=== PATIENT | female | born 1990 | race Caucasian/White ===

== ENCOUNTER 2024-10-22 07:18 | Outpatient (REF) | payer OTHER, SELFPAY ==
--- OUTSIDE RECORDS SUMMARY | 2024-10-22 22:46 | XMS_ITS ---
Author Name [facility] Address [address] [place] [address] Care Team Providers Care Inspector Precision Assembly Name Role Phone FILOMENA SCOTT Primary Care Provider Unavailshelley e Insurance Providers: All historical and current Section Date Range: From patient's date of to the date document was created. This section includes the names of all active insurance providers for the patient. Insurance Provider Type of Coverage Plan Name Start of Policy Coverage End of Policy Coverage Group Number Member ID Insurance Provider's Telephone Number Policy Alcazar's Name Patient's Relationship to Policy Alcazar [employer] DODA* Jun 16, 2024 DODA [id number] Luis Carlos DURBIN PATIENT [facility] [address] T Jun 16, 2024 [id number] Luis Carlos DURBIN PATIENT Selected Encounter This section includes the information on record at [place] for the Encounter. Date/Time Encounter Type Encounter Description Reason Pro vider Source Jul 30, 2024 03:29 PM Outpatient Encounter ADMIN PAT ACTIVTIES (MASNONCT) IHE Encounter Template Text not used by [place] Plan of Treatment: Future Appointments (+ 6 months) and Future Tests (+/- 45 days) The Plan of Treatment section includes future care activities for the patient from all [place] treatmentfacilities. This section includes future appointments and future orders which are active, pending or scheduled. Future Appointments This section includes appointments that were scheduled to occur 6 months from the date of the Encounter, up to a maximum of 20 appointments. The data comes from all [place] treatment facilities. Appointment Date/Time Appointment Type Appointme nt Facility Name Aug 01, 2024 02:30 PM [facility] Oct 06, 2024 10:00 AM AMBULATORY - MEDICINE [facility] Active, Pending, and Scheduled Orders This section includes a listing of several types of active, pending, and scheduled orders, including clinic medications orders, diagnostic test orders, procedure orders and consult orders; where the start date of the order is 45 days before the date of the Encounter or 45 days after the date of theEncounter. The data comes from all [place] treatment facilities. Test Date/Time Test Type Test Details Facility Name Jul 29, 2024 01:03 PM Consult Order [facility] Cons Design Maker's Choice [facility] Lab Results: +/- 30 days of the encounter This section includes the Chemistry and Hematology Lab Results on record with [place] for the patient. Radiology Reports and Pathology Reports are provided separately, in subsequent sections. Lab Results This section contains the Chemistry/Hematology Results that were resulted 30 days before or 30 daysafter the date of the Encounter. Date/Time Source Result Type Result - Unit Interpretation Reference Range Comment Jul 29, 2024 11:38 AM [facility] T-SPOT TB PANEL Specimen Type: BLOOD Comment: A negative test result does not exclude the possibility of exposure to or infection with Mycobacterium tuberculosis (M. tuberculosis). Patients with recent exposure to TB infected individuals exhibiting a negative T-SPOT.TB result should be considered for retesting within 6 weeks or if other relevant clinical symptoms indicate. Results from T-SPOT.TB testing must be used in conjunction with each individual's epidemiological history, current medical status, and results of other diagnostic evaluations. The T-SPOT.TB test is qualitative and results are reported as positive, borderline, or negative, given that the test controls perform as expected. In line with the Centers for Disease Control and Prevention's 2010 recommendation to report quantitative measurements alongside the qualitative result, the laboratory provides spot counts for informational purposes only. The T-SPOT.TB test should not be interpreted as a quantitative test. For additional information, please refer to http://education .Lakoo/faq/JQM178 (This link is being provided for informational/ educational purposes only.) Test Performed by [employer], [employer] [facility], [address] [place], [place] Patel Tamez M.D., Ph.D., Director of Laboratories , [facility] [id number] TEST PERFORMED AT: , Ordering Provider: FILOMENA SCOTT Report Released Date/Time: Jul 29, 2024 10:55 AM Reporting Lab: [facility] [address] [address] Performing Lab: [facility] [address] [address] Z-[id number] (o) Negative Negative T-SPOT-PNLA 0 T-SPOT-PNLB 0 F-ABUH-WYNKJH L Passed H-KDRT-VBPOCQ L Passed Jul 29, 2024 11:38 AM [facility] MMRV (IGG) IMMUNE STATUS PANEL Specimen Type: SERUM Comment: A result of 'REACTIVE' indicates presence of IgG to Measles, Mumps, Rubella or Varicella following exposure to these viruses through either infection or vaccination. If quantitative index values are required for clinical interpretation, call Virology Reference lab during weekday business hours. Ordering Provider: FILOMENA SCOTT Report Released Date/Time: Jul 29, 2024 10:55 AM Reporting Lab: [address] [address] Performing Lab: [address] [address] MEASLES (IGG) REACTIVE SEE COMMENT MUMPS (IGG) REACTIVE SEE COMMENT RUBELLA (IGG) REACTIVE SEE COMMENT VARICELLA (IGG) REACTIVE SEE COMMENT Jul 29, 2024 11:38 AM [facility] BASIC METABOLIC PANEL (non-fasting) Specimen Type: SERUM No comment entered. Ordering Provider: FILOMENA SCOTT Report Released Date/Time: Jul 29, 2024 10:39 AM Reporting Lab: [address] [address] Performing Lab: [address] [address] UREA NITROGEN 12 mg/dL 7-25 GLUCOSE 94 mg/dL 65-100 SODIUM 141 mmol/L 135-145 POTASSIUM 4.0 mmol/L 3.5-5.0 CHLORIDE 106 mmol/L 100-110 CO2 26 meq/L 20-30 CREATININE, Serum 0.82 mg/dL 0.50-1.40 eGFR(CKD-EPI 2020) >90 mL/min >60 Jul 29, 2024 11:38 AM [facility] LIPID PANEL FASTING Specimen Type: SERUM No comment entered. Ordering Provider: FILOMENA SCOTT Report Released Date/Time: Jul 29, 2024 10:39 AM Reporting Lab: [address] [address] Performing Lab: [address] [address] CHOLESTEROL 159 mg/dL TRIGLYCERIDE 66 mg/dL 0-150 LDL calculated 89 mg/dL 0-129 CHOL/HDL 2.8 HDL CHOLESTEROL 57 mg/dL 40-60 Jul 29, 2024 11:38 AM [facility] LIVER FUNCTION Specimen Type: SERUM No comment entered. Ordering Provider: FILOMENA SCOTT Report Released Date/Time: Jul 29, 2024 10:39 AM Reporting Lab: [address] [address] Performing Lab: [address] [address] PROTEIN,TOTAL 6.9 g/dL 6.0-8.3 ALBUMIN 4.5 g/dL 3.5-5.0 ALKALINE PHOSPHATASE 82 U/L 40-150 AST 13 U/L 5-34 ALT 9 U/L BILIRUBIN, TOTAL 1.4 mg/dL H 0.2-1.2 BILIRUBIN, DIRECT 0.5 mg/dL 0-0.5 Jul 29, 2024 11:38 AM [facility] CBC AND DIFF (AUTO) Specimen Type: BLOOD No comment entered. Ordering Provider: FILOMENA SCOTT Report Released Date/Time: Jul 29, 2024 10:39 AM Reporting Lab: [address] [address] Performing Lab: [facility] [address] [address] WBC 4.06 10*3/uL L 4.50-11.00 RBC 3.93 10*6/uL 3.93-5.16 HGB 12.8 g/dL 12-15.2 HCT 36.4 L 36.6-45.6 MCV 92.6 fL 82-99 MCHC 35.2 g/dL H 30.8-35.1 PLT 217 10*3/uL 140-360 RDW-CV 11.4 L 12.0-16.0 MONO, ABS 0.34 10*3/uL 0.30-1.10 MCH 32.6 pg 26.2-32.6 NEUT % 44.4 43.7-75.8 LYMPH % 46.3 H 14.0-42.3 MONO % 8.4 5.1-13.7 EOS % 0.5 0.4-6.8 BASO % 0.2 0.1-2.0 NEUT, ABS 1.80 10*3/uL L 2.20-7.60 LYMPH, ABS 1.88 10*3/uL 1.00-3.20 EOS, ABS 0.02 10*3/uL L 0.03-0.44 BASO, ABS 0.01 10*3/uL 0.01-0.13 IMMATURE GRAN % 0.2 0.0-0.7 IMMATURE GRAN, ABS 0.01 10*3/uL 0.00-0.06 NRBC % 0.0 0.0-0.0 NRBC, ABS 0.00 10*3/uL 0.00-0.00 Jul 29, 2024 11:38 AM [facility] HEMOGLOBIN A1C PANEL Specimen Type: BLOOD Comment: Values obtained from A1C measurements can vary. For atypical A1C assays, a reported value of 7.0 could actually be between 6.72 and 7.28 if measured by a reference method. A reported value of 9.0 could actually be between 8.73 and 9.27. Ref: http://www.ngsp. org/CAPdata.asp Ordering Provider: FILOMENA SCOTT Report Released Date/Time: Jul 29, 2024 10:39 AM Reporting Lab: [facility] [place] [facility] [address] [address] Performing Lab: [facility] [address] [facility] [address] HEMOGLOBIN A1C 4.9 4.0-5.6 Jul 29, 2024 11:38 AM [facility] TSH Specimen Type: SERUM No comment entered. Ordering Provider: FILOMENA SCOTT Report Released Date/Time: Jul 29, 2024 10:39 AM Reporting Lab: [facility] [address] [address] Performing Lab: [facility] [address] [address] TSH 0.80 u[IU]/mL 0.35-5.00 Jul 29, 2024 11:38 AM [facility] HEPATITIS C ANTIBODY (HCV)-ARC Specimen Type: SERUM Comment: Hep C Ab: No HCV antibody detected. If recent infection is suspected or other evidence suggests HCV infection, consider HCV nucleic acid testing Ordering Provider: FILOMENA SCOTT Report Released Date/Time: Jul 29, 2024 11:10 AM Reporting Lab: [facility] [address] [address] Performing Lab: [facility] [address] HEPATITIS C ANTIBODY NON-REACTIVE NON-REACTI VE Social History: Smoking Status (Most current) and Tobacco Use (All prior to encounter date) This section includes the most current, and the historical, smoking and tobacco- related health factors from the [place] facility where the Encounter took place. Current Smoking Status This section includes the most current smoking, or tobacco-related health factor, from the [place] facility where the Encounter took place. Date/Time Current Smoking Status Comment Ha morrell Jul 24, 2024 11:37 AM [facility]ACCO NEVER USED [facility] Radiology Reports: +/- 30 days of the encounter Radiology Reports For cases when an order for radiology services may have been completed prior to the date of the Encounter, the report list includes the Radiology Reports that were completed up to 30 days before dateof the Encounter. For cases when an order for radiology services may have been completed after the date of the Encounter, the report list also includes the Radiology Reports that were completed up to30 days after date of the Encounter. The data comes from all [place] treatment facilities. Date/Time Radiology Report Provider Source Jul 29, 2024 11:[address] MAXILLOFACIAL W/O CONT: MUKESH DURBIN [id number] -1990 F Exm Date: JUL 29, 2024@11:56 Req Phys: FILOMENA SCOTT Pat Loc: CWM/NO/PACT 5 (Req'g Loc) Img Loc: [facility]/CT Service: Unknown Screen: [place] [address] (Case 92 COMPLETE) CT MAXILLOFACIAL W/O CONT (CT Detailed) CPT:56624 Reason for Study: right jaw pain and zygomatic arch pain Clinical History: Post rugby injury last month with head on collision on right side of skull and cheek pain with opening jaw right side Report Status: Verified Date Reported: JUL 31, 2024 Date Verified: JUL 31, 2024 Predictive Maintenance Technician E-Sig: Report: CT MAXILLOFACIAL W/O CONT right jaw pain and zygomatic arch pain 271 images. Total DLP (mGy*cm): 595 IV contrast: None. Technique: Maxillofacial CT without contrast. Reformats. Comparison: None. Findings: Orbits, maxilla, TMJs, mandible intact. No fracture. Hardware intact. Dentition intact. Zygomatic arches intact. Orbital floors intact. Orbits and contents normal. Infratemporal soft tissues normal. Nasopharynx soft tissues normal. Paranasal sinuses are clear. Nasal septum midline. Allowing for minimal undulation of the right nasal bone cortex, no convincing fracture. Limited assessment brain and upper cervical spine unremarkable. Incompletely diffuse posterior arch of C1, congenital variant. Impression: - Unremarkable sinus CT. No fracture or soft tissue swelling. READING PHYSICIAN: Alen Guzman MD -[id number] 07/31/2024 7:21 [facility] National [employer] Program [phone] (For Medical Practitioner Use Only) Attention Patients / Veterans: If you have questions or concerns about these test results, please contact your ordering provider or primary care team. Primary Diagnostic Code: NO ALERT REQUIRED Primary Interpreting Staff: RADIOLOGY,OUTSIDE SERVICE, Staff Physician / RADIOLOGY,OUTSIDE SERVICE [facility] Jul 29, 2024 11:55 AM ANKLE 3 OR MORE VIEWS (RIGHT): GIFTYMUKESH LUDMILA [id number] -1990 F Exm Date: JUL 29, 2024@11:55 Req Phys: TYLER,FILOMENA CASPER Pat Loc: CWM/NO/PACT 5 (Req'g Loc) Img Loc: [facility]BUILD[facility] 1 Service: Unknown Screen: Patient answered no [place] [address] (Case 91 COMPLETE) ANKLE 3 OR MORE VIEWS (RIGHT) (RAD Detailed) CPT:50272 Reason for Study: Right medial ankle pain Clinical History: 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 Comparison: None. Findings: No soft tissue swelling is identified. No radiopaque foreign body is identified. The medial ankle soft tissues appear within normal limits with no focal nodule or mass identified. There is a well-corticated 6 mm bone fragment inferior to the lateral malleolus consistent with remote prior avulsion fracture injury. The talar dome appears normal. The ankle mortise appears normal. Small vascular calcification present in the mid calf above the level of cutaneous marker. No calcaneal spurs are identified. The Achilles tendon stripe appears intact. The foot bones appear intact. No acute bony abnormality is identified. Impression: No acute bony abnormality, as described above. Primary Diagnostic Code: No immediate attention required Primary Interpreting Staff: JEFFERY GARCIA JR, Radiologist (Predictive Maintenance Technician) /JEFFERY CASTILLO JR [facility] Jul 29, 2024 11:55 AM SHOULDER,COMPLETE(RIGHT): GIFTYTREVONMUKESH LUDMILA [id number] -1990 F Exm Date: JUL 29, 2024@11:55 Req Phys: FILOMENA SCOTT Pat Loc: CWM/NO/PACT 5 (Req'g Loc) Img Loc: [facility] Service: Unknown Screen: Patient answered no [facility] [place] [address] (Case 90 COMPLETE) SHOULDER,COMPLETE(RIGHT) (RAD Detailed) CPT:53917 Reason for Study: Right shoulder pain Clinical History: Post rugby injury last month Report Status: Verified Date Reported: JUL 29, 2024 Date Verified: JUL 29, 2024 Predictive Maintenance Technician E-Sig:/ES/JEFFERY GARCIA JR Report: Study: AP internally and externally rotated and Axillary views of the right shoulder. Comparison: None. Findings: The visualized lung and ribs appear normal. The bony mineralization is normal. The shoulder joint spaces are normal and well-maintained. No abnormal soft tissue calcifications are identified that would indicate calcific tendinopathy or calcific bursitis. There is no bony fracture, dislocation or subluxation. Impression: No focal abnormality identified. Primary Diagnostic Code: No immediate attention required Primary Interpreting Staff: JEFFERY GARCIA JR, Radiologist (Predictive Maintenance Technician) /JEFFERY CASTILLO JR [facility] Encounter Notes: All associated encounter notes This section contains the clinical notes associated to the Encounter. Date/Time Encounter Note(s) Provider Source Jul 30, 2024 03:34 PM ADDENDUM: LOCAL TITLE: Addendum STANDARD TITLE: ADDENDUM DATE OF NOTE: JUL 30, 2024@15:34:52 ENTRY DATE: JUL 30, 2024@15:34:54 AUTHOR: JUSTINA JASSO COSIGNER: URGENCY: STATUS: COMPLETED Vet is requesting results of CT scan /werner/ Justina Jasso RN Primary Care Staff Nurse Signed: 07/30/2024 15:35 Receipt Acknowledged By: 08/01/2024 09:41 /werner/ DESTINY NEGRO Nurse Practitioner --- Original Document --- 07/30/24 CCC: SCHEDULING ADMINISTRATION: PLEASE CALL [phone] SCAN RESULTS. /magdiel RODRIGUEZ Medical Internal Medicine Specialist Signed: 07/30/2024 15:30 Receipt Acknowledged By: 07/30/2024 15:42 /LINDSAY Pyle, RN, CNL PRIMARY CARE TEAM NURSE 07/30/2024 15:35 /werner/ Justina Jasso RN Primary Care Staff Nurse JUSTINA JASSO [facility] [place] [facility] Jul 30, 2024 03:29 PM ADMINISTRATIVE NOT E: LOCAL TITLE: CCC: SCHEDULING ADMINISTRATION STANDARD TITLE: ADMINISTRATIVE NOTE DATE OF NOTE: JUL 30, 2024@15:29 ENTRY DATE: JUL 30, 2024@15:29:28 AUTHOR: ISSA RODRIGUEZ EXP COSIGNER: URGENCY: STATUS: COMPLETED CCC: SCHEDULING ADMINISTRATION Has ADDENDA PLEASE CALL [phone] SCAN RESULTS. /magdiel RODRIGUEZ Medical Internal Medicine Specialist Signed: 07/30/2024 15:30 Receipt Acknowledged By: 07/30/2024 15:42 /LINDSAY Pyle, RN, CNL PRIMARY CARE TEAM NURSE 07/30/2024 15:35 /werner/ Justina Jasso RN Primary Care Staff Nurse 07/30/2024 ADDENDUM STATUS: COMPLETED Vet is requesting results of CT scan /magdiel Jasso RN Primary Care Staff Nurse Signed: 07/30/2024 15:35 Receipt Acknowledged By: * AWAITING SIGNATURE * FILOMENA SCOTT DIANE M [facility] [place] [facility]
--- OUTSIDE RECORDS SUMMARY | 2024-10-22 22:46 | XMS_ITS ---
Author Name [facility] [place] [facility] Address [address] [place] [id number] Care Team Providers Care It Systems Analyst Name Role Phone LETA VAZQUEZ Primary Care Provider Unavailabl e Insurance Providers: All historical and current [...] TRICA RE DODA* Jun 16, 2024 DODA [id number] Luis Carlos DURBIN PATIENT [facility] [address] T Jun 16, 2024 [id number] Luis Carlos DURBIN PATIENT Selected Encounter This section includes the information on record at [place] for the Encounter. Date/Time Encounter Type Encounter Description Reason Pro vider Source Oct 06, 2024 12:00 AM Outpatient Encounter EVENT (HISTORICAL) IHE Encounter Template Text not used by [place] Plan of Treatment: Future Appointments (+ 6 months) and Future Tests (+/- 45 days) The Plan of Treatment section includes future care activities for the patient from all [facility]. This section includes future appointments and future orders which are active, pending or scheduled. Active, Pending, and Scheduled Orders This section includes a listing of several types of active, pending, and scheduled orders, including clinic medications orders, diagnostic test orders, procedure orders and consult orders; where the start date of the order is 45 days before the date of the Encounter or 45 days after the date of theEncounter. The data comes from all [place] treatment facilities. Test Date/Time Test Type Test Details Facility Name Oct 06, 2024 12:57 PM Consult Order COMMUNITY CARE-MRI Cons Tuber Helper's Choice [facility] Lab Results: +/- 30 days of the encounter This section includes the Chemistry and Hematology Lab Results on record with [place] for the patient. Radiology Reports and Pathology Reports are provided separately, in subsequent sections. Lab Results This section contains the Chemistry/Hematology Results that were resulted 30 days before or 30 daysafter the date of the Encounter. Date/Time Source Result Type Result - Unit Interpretation Reference Range Comment Oct 06, 2024 02:07 PM [facility] HCG QUAL, URINE Specimen Type: URINE Comment: Test performd by Leta Vazquez NP. [facility] Ordering Provider: LETA VAZQUEZ Report Released Date/Time: Oct 06, 2024 11:28 AM Reporting Lab: [facility] [address] [facility] [id number] Performing Lab: [facility] [address] [facility] [id number] HCG QUAL, URINE Negative NEGATIVE Vital Signs: All taken on the encounter date This section contains inpatient and outpatient Vital Signs collected on the date of the Encounter. Date/Time Temperature Pulse Blood Pressure Respiratory Rate SP02 Pain Height Weight Body Mass Index Source Oct 06, 2024 10:19 AM 97.9 71 105/69 18 99 0 150 24 [facility] Social History: Smoking Status (Most current) and Tobacco Use (All prior to encounter date) This section includes the most current, and the historical, smoking and tobacco- related health factors from the [place] facility where the Encounter took place. Current Smoking Status This section includes the most current smoking, or tobacco-related health factor, from the [place] facility where the Encounter took place. Date/Time Current Smoking Status Comment Facil ity Jul 24, 2024 11:37 AM [facility]CO [facility] USED [facility] Pathology Reports: +/- 30 days of the encounter Pathology Reports For cases when an order for pathology services may have been completed prior to the date of the Encounter, the report list includes the Pathology Reports that were completed up to 30 days before dateof the Encounter. For cases when an order for pathology services may have been completed after the date of the Encounter, the report list also includes the Pathology Reports that were completed up to30 days after date of the Encounter. The data comes from all [place] treatment facilities. Date/Time Pathology Report Provider Source Oct 16, 2024 01:52 PM LR CYTOPATHOLOGY REPORT: LOCAL TITLE: LR CYTOPATHOLOGY REPORT STANDARD TITLE: PATHOLOGY DIAGNOSTIC STUDY REPORT DATE OF NOTE: OCT 16, 2024@13:52:33 ENTRY DATE: OCT 16, 2024@13:52:33 AUTHOR: KRISTINE GREENE EXP COSIGNER: URGENCY: STATUS: COMPLETED $APHDR Reporting Lab: [facility] [IA# [id number]] [address] [place] [id number] - - - - - - - - - - - - - - - - - - - - - - - - - - - - - - - - - - - - - - - - MEDICAL RECORD CYTOPATHOLOGY - - - - - - - - - - - - - - - - - - - - - - - - - - - - - - - - - - - - - - - - PATHOLOGY REPORT Accession No. CY 24 325 - - - - - - - - - - - - - - - - - - - - - - - - - - - - - - - - - - - - - - - - $TEXT Submitted by: LETA VAZQUEZ Date obtained: Oct 06, 2024 10:45 - - - - - - - - - - - - - - - - - - - - - - - - - - - - - - - - - - - - - - - - Specimen (Received Oct 06, 2024 14:54): CERVICAL CYTOLOGY [id number] - - - - - - - - - - - - - - - - - - - - - - - - - - - - - - - - - - - - - - - - BRIEF CLINICAL HISTORY: CY 24 325 SPECIMEN TYPE: PAP WITH HPV GENDER: FEMALE CERVICAL OR VAGINAL: CEVOCA; LMP: MAR 06, 2024 CLINICAL HX: LAST NILM WITH HPV COMMENTS: NO MENSES HAS MIRENA IUD - - - - - - - - - - - - - - - - - - - - - - - - - - - - - - - - - - - - - - - - PREOPERATIVE DIAGNOSIS: - - - - - - - - - - - - - - - - - - - - - - - - - - - - - - - - - - - - - - - - OPERATIVE FINDINGS: - - - - - - - - - - - - - - - - - - - - - - - - - - - - - - - - - - - - - - - - POSTOPERATIVE DIAGNOSIS: Surgeon/physician: LETA VAZQUEZ =-=-=-=-=-=-=-=-=-=-=-=-=- =-=-=-=-=-=-=-=-=-=-=-=-=- =-=-=-=-=-=-=-=-=-=-=-=-=- = - - - - - - - - - - - - - - - - - - - - - - - - - - - - - - - - - - - - - - - - PATHOLOGY REPORT Accession No. CY 24 325 - - - - - - - - - - - - - - - - - - - - - - - - - - - - - - - - - - - - - - - - Screened by: ANTONIO MILLS Description: CY 24 325 CERVICAL CYTOLOGY PAP WITH HPV NEEDED CERVICAL CYTOLOGY RECEIVED IN PRESERVCYT SOLUTION Diagnosis: Satisfactory for evaluation Negative for intraepithelial lesion or malignancy Gynecologic cytology is a screening procedure with an inherent false negative rate. It is most reliable when a satisfactory sample is obtained on a regular repetitive basis. Results should be correlated with clinical information. CPT:15587,63603 HPV REPORT PERFORMED BY: [facility] [CLIA# [id number]] [address] [place] [id number] HPV DNA, HIGH RISK TEST HPV16 NEG Ref: HPV16 NEG HPV18 NEG Ref: HPV18 NEG HPV OTHER HIGH-RISK NEG Ref: OTHER HR HPV NEG Comment: HPV DNA PCR performed by Kaye henry HPV Test. This test detects the presence of DNA from HPV genotypes 16, 18, 31, 33, 35, 39, 45, 51, 52, 56, 58, 59, 66 and 68. Correlation with separate cytopathology report is required. /werner/ KRISTINE GREENE Signed Oct 16, 2024@13:52 Performing Laboratory: Cytology Report Performed By: [facility] [CLIA# [id number]] [address] [place] [address] $FTR - - - - - - - - - - - - - - - - - - - - - - - - - - - - - - - - - - - - - - - - (End of report) KRISTINE GREENE MD Date Oct 16, 2024 - - - - - - - - - - - - - - - - - - - - - - - - - - - - - - - - - - - - - - - - MUKESH DURBIN STANDARD FORM 515 ID:[id number] SEX:F :1990 AGE: 34 LOC:CWM/NO/PACT 5 PCP: Leta Vazquez /werner/ KRISTINE GREENE Signed: 10/16/2024 13:52 KRISTINE GREENE CN[facility]L [facility]
--- OUTSIDE RECORDS SUMMARY | 2024-10-22 22:46 | XMS_ITS ---
Author Name [facility] Organization [facility] ([place]) Address [address] [place] [id number] Care Team Providers Care Assembly Inspector Helper Name Role Phone LETA VAZQUEZ Primary Care [...] Member ID Insurance Provider's Telephone Number Policy Alaczar's Name Patient's Relationship to Policy Alcazar [employer] RE DODA* Jun 16, 2024 DODA [id number] [phone] Luis Carlos DURBIN PATIENT [facility] [address] T Jun 16, 2024 [id number] [phone] Luis Carlos DURBIN PATIENT Selected Encounter This section includes the information on record at [place] for the Encounter. Date/Time Encounter Type Encounter Description Reason Provider Source Oct 06, 2024 10:00 AM INSERT INTRAUTERINE DEVICE PRIMARY CARE/MEDICINE ICD-10-CM Z12.4 Encounter for screening for malignant neoplasm of cervix LETA VAZQUEZ [facility] Encounter Template Text not used by [place] Assessments - Encounter Diagnoses This section includes the primary and secondary diagnoses documented for the Encounter. Date/Time Primary/Secondary Diagnosis Diagnosis Name Provider Source Oct 06, 2024 12:50 PM PRIMARY Encounter for screening for malignant neoplasm of cervix LETA VAZQUEZ [place] [facility] [place] [facility] Plan of Treatment: Future Appointments (+ 6 months) and Future Tests (+/- 45 days) The Plan of Treatment section includes future care activities for the patient from all [place] treatmentfacilities. This section includes future appointments and [...] of theEncounter. The data comes from all [place] treatment facilities. Test Date/Time Test Type Test Details Facility Name Oct 06, 2024 12:57 PM Consult Order COMMUNITY CARE-MRI Cons Kiln Loader's Choice [facility] Lab Results: +/- 30 days of the encounter This section includes the Chemistry and Hematology Lab Results on record with [place] for the patient. Radiology Reports and Pathology Reports are provided separately, in subsequent sections. Lab Results This section contains the Chemistry/Hematology Results that were resulted 30 days before or 30 daysafter the date of the Encounter. Date/Time Source Result Type Result - Unit Interpretation Reference Range Comment Oct 06, 2024 02:07 PM [facility] HCG QUAL, URINE Specimen Type: URINE Comment: Test performd by Leta Vazquez NP. [facility] Ordering Provider: LETA VAZQUEZ Report Released Date/Time: Oct 06, 2024 11:28 AM Reporting [facility] [address] [facility] [id number] Performing Lab: [address] [id number] HCG QUAL, URINE Negative NEGATIVE Vital Signs: All taken on the encounter date This section contains inpatient and outpatient Vital Signs collected on the date of the Encounter. Date/Time Temperature Pulse Blood Pressure Respiratory Rate SP02 Pain Height Weight Body Mass Index Source Oct 06, 2024 10:19 AM 97.9 71 105/69 18 99 0 150 24 [facility] Social History: Smoking Status (Most current) and Tobacco Use (All prior to encounter date) This section includes the most current, and the historical, smoking and tobacco- related health factors from the [place] facility where the Encounter took place. Current Smoking Status This section includes the most current smoking, or tobacco-related health factor, from the [place] facility where the Encounter took place. Date/Time Current Smoking Status Comment Ha morrell Jul 24, 2024 11:37 AM VA-TOBACCO NEVER USED [facility] Pathology Reports: +/- 30 days of the [...] the Encounter. The data comes from all [place] treatment facilities. Date/Time Pathology Report Provider Source Oct 16, 2024 01:52 PM LR CYTOPATHOLOGY REPORT: LOCAL TITLE: LR CYTOPATHOLOGY REPORT STANDARD TITLE: PATHOLOGY DIAGNOSTIC STUDY REPORT DATE OF NOTE: OCT 16, 2024@13:52:33 ENTRY DATE: OCT 16, 2024@13:52:33 AUTHOR: KRISTINE GREENE EXP COSIGNER: URGENCY: STATUS: COMPLETED $APHDR Reporting Lab: [facility] [CLIA# [id number]] [address] [place] [id number] - - - - - - - [...] (Received Oct 06, 2024 14:54): CERVICAL CYTOLOGY [id number] - - - - - - - - - - - - - - - - - - - - - - - - - - - - - - - - - - - - - - - - BRIEF CLINICAL HISTORY: CY 24 325 SPECIMEN TYPE: PAP WITH HPV GENDER: FEMALE CERVICAL OR VAGINAL: PAULCA; LMP: MAR 06, 2024 CLINICAL HX: LAST [...] Results should be correlated with clinical information. CPT:36925,80853 HPV REPORT PERFORMED BY: [facility] [IA# [id number]] [address] [place] [id number] HPV DNA, HIGH RISK TEST HPV16 NEG Ref: HPV16 NEG HPV18 NEG Ref: HPV18 NEG HPV OTHER HIGH-RISK NEG Ref: OTHER HR HPV NEG Comment: HPV DNA PCR performed by [employer] henry HPV Test. This test detects the presence of DNA from HPV genotypes 16, 18, 31, 33, 35, 39, 45, 51, 52, 56, 58, 59, 66 and 68. Correlation with separate cytopathology report is required. /werner/ KRISTINE GREENE Signed Oct 16, 2024@13:52 Performing Laboratory: Cytology Report Performed By: [facility] [CLIA# [id number]] [address] [place] [address] $FTR - - - - - - [...] - - MUKESH DURBIN STANDARD FORM 515 ID:[id number] SEX:F :1990 AGE: 34 LOC:CWM/NO/PACT 5 PCP: Leta Vazquez /magdiel GREENE Signed: 10/16/2024 13:52 KRISTINE GREENE [facility] Encounter Notes: All associated encounter notes This section contains the clinical notes associated to the Encounter. Date/Time Encounter Note(s) Provider Source Oct 06, 2024 12:50 PM PROCEDURE NOTE: LOCAL TITLE: INVASIVE PROCEDURE NOTE STANDARD TITLE: PROCEDURE NOTE DATE OF NOTE: OCT 06, 2024@12:50 ENTRY DATE: OCT 06, 2024@12:51:04 AUTHOR: LETA VAZQUEZ EXP COSIGNER: URGENCY: STATUS: COMPLETED PROCEDURE NOTE: IUD PROCEDURE PREFORMED: Mirena IUD DIAGNOSIS: Contraception 1) MEDICATION RECONCILIATION REMINDER DONE Yes (to include medications being used during invasive procedure) 2) INFORMED CONSENT: Obtained verbally, and through IMED.Yes The patient voiced an understanding and desire to proceed with the procedure. 3) VITAL SIGNS DOCUMENTED PRE-PROCEDURE, PAIN ASSESSMENT Yes: Temperature:97.9 F [36.6 C] (10/06/2024 10:19) Blood Pressure:105/69 (10/06/2024 10:19) Pulse:71 (10/06/2024 10:19) Respiration:18 (10/06/2024 10:19) Pain:0 (10/06/2024 10:19) PRE-PROCEDURE PAIN ASSESSMENT: Location: Pain is acute Pain is chronic Check all that apply, the pain is: Alleviating factors include: 4) Time-Out and Identification: TIME:Sep@10:25 PROVIDER NAME:Leta DIXON STAFF NAME:Enedina Vargas RN IDENTIFICATION CONFIRMED BY ASSISTING STAFF MEMBER (X) [place] stating full name GIFTYMUKESH LUDMILA (X) stating full SS# [id number] (X) [place] stating Feb There are no contraindications to IUD placement: Yes HCG urine is negative on Sep ICON 20 hCG test used Lot# [id number] Exp:Oct CONTRAINDICATION: She is not within 6 weeks, there is no copper allergy for Paragard users, no progestin allergy for , and no mucopurulent cervicitis. We discussed the risks, benefits and alternatives to the IUD. I have answered all her questions about possible infection, complications and fertility after and during use. The risks we discussed included: bleeding and infection post procedure, risk for expulsion, risk of perforation, and the very small risk of while using the IUD. The IUD is being placed for contraception . Ibuprofen 800mg PO was taken by the patient at the start of today's visit:No PROCEDURE: Placement of Mirena IUD LOCATION: Uterus(identify if area is marked if appropriate) Procedure Note: A no touch technique was used throughout the procedure. Bimanual exam done and uterus was retroverted. A speculum was placed into vagina and cervix was swabbed with 2x2 gauze with betadine x3. Gonorrhea and chlamydia testing done: No A tenaculum was placed at the bilateal anterior lip of the cervix. A plastic sound was advanced through the external and internal os until it reached the fundus of the uterus, the depth was 7cm. The sound was then withdrawn. The IUD was loaded in a sterile manner and advanced into position. The string was visualized and cut to 2 cm. Patient tolerated the procedure well. No complications were noted. IUD used Mirena Lot# [id number] Serial# Exp:Oct A/P CONTRACEPTION IUD inserted without complications. See Discharge Note. Call with any questions or problems. POST PROCEDURE PAIN ASSEMENT COMPLETED Yes: Pain 1-10:0 Other:zero was cramping during procedure but susbided one IUD placed Pt. was instructed to return as needed for follow up care. DISCHARGE INSTRUCTIONS OUTPATIENT NOTE PRINTED Yes IUD Take-Home Sheet Copper-T IUD (Paragard) It begins working now to prevent . It can stay inside you for 10 years. Removal date (10 years from today) (X) Progestin IUD (Mirena) It begins working in 7 days to prevent . You MUST use condoms for the first 7 days after your IUD was inserted. If you have sex without using a condom, you will need to take emergency contraception as soon as possible to prevent . Mirena can stay inside you for 5 years. Removal date 10/03/2029 (5 years from today) Today you may go back to work after your visit. You must wait 24 hours after your IUD is put in before you can use tampons, take a bath, or have vaginal sex. You may have more cramps or heavier bleeding with your periods, or spottingbetween your periods. This is normal. The cramping and bleeding can last for 3-6 months with the Mirena IUD. After 6 months, the cramping and bleeding should get better. Many women will stop having periods after 1 or 2 years with the Mirena IUD. If you have the Paragard (copper) IUD, you may have more cramping and more bleeding with your periods as long as you have the IUD inside you. Ibuprofen (also called Advil or Motrin) helps decrease the bleeding and cramping. You can buy Ibuprofen at any drug store without a prescription. You can take as many as 4 pills (800 mg) of Ibuprofen every 8 hours with food (each pill contains 200 mg). To prevent cramping, start taking Ibuprofen as soon as your period starts and keep taking it every 8 hours for the first 2-3 days of your period. You can also put a hot water bottle on your belly if you have bad cramps. Your IUD may come out by itself in the first three months. If you can feel the strings, the IUD is in the right place. If your IUD comes out, you can become immediately. If you are not sure how to check the strings, we can help you. Meanwhile, if you are not sure if the IUD is in place or not, use condoms. The IUD does NOT protect you against sexually transmitted infections. ALWAYS use protection against sexually transmitted infections (male condoms, female condoms, dental dams) if you are at risk. If you think you have been exposed to an STI, discuss testing with your healthcare provider. Most infections can be treated WITHOUT removing your IUD. WARNING SIGNS: If you develop any of the below warning signs, you need to see a healthcare provider immediately and tell them when your IUD was placed. Within the first 3 weeks of the IUD insertion: - Fever (>101F) - Chills - Strong or sharp pain in your stomach or belly - At Any Time (these are very rare): - Late period (for Paragard users) - Feeling (breast tenderness, nausea, vomiting) - Positive home test /werner/ DESTINY NEGRO Nurse Practitioner Signed: 10/06/2024 12:54 LETA VAZQUEZ [place] [facility] [place] [facility] Oct 06, 2024 10:30 AM PRIMARY CARE NURSE PRACTITIONER OUTPATIENT NOTE: LOCAL TITLE: NURSE PRACTITIONER OUTPATIENT NOTE STANDARD TITLE: PRIMARY CARE NURSE PRACTITIONER OUTPATIENT NOTE DATE OF NOTE: OCT 06, 2024@10:30 ENTRY DATE: OCT 06, 2024@10:30:38 AUTHOR: LETA VAZQUEZ EXP COSIGNER: URGENCY: STATUS: COMPLETED Chief complaint: Pt is a 34 who comes in for follow up of medical problems as noted below. HPI: Mukesh is here requesting IUD removal and needs new one inserted, she is happy with Mirena IUD does not generally have periods with this. 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 Obstructive sleep apnea syndrome Diagnosed when stationed in [place] never obtained CPAP 2. Pain of right knee region ACL repair right knee- 2012 3. Traumatic dislocation of acromioclavicular joint Allergies: Patient has answered NKA The following VA and Non-VA meds were reconciled with patient: Active and Recently Outpatient Medications (excluding Supplies): Active Non-VA Medications Status 1) Non-VA IBUPROFEN TAB BY MOUTH ACTIVE 2) Non-VA LEVONORGESTREL 52MG INSERT INTRAUTERINE 1 ACTIVE IMPLANT INTRAUTERINE Allergies: Patient has answered NKA VITAL SIGNS: 97.9 F [36.6 C] (10/06/2024 10:19) 71 (10/06/2024 10:19) 18 (10/06/2024 10:19) 105/69 (10/06/2024 10:19) 0 (10/06/2024 10:19) 66 in [167.6 cm] (07/29/2024 10:11) 150 lb [68.04 kg] (10/06/2024 10:19) BMI: 24.3 ROS: General: no fever, no unexplained weight loss or gain : denies discharge, pruritis, dysuria; no urinary incontinence Ext: denies edema Skin: denies rash or other lesions Psych: denies SI Neuro: denies dizziness, falls PHYSICAL EXAM Prevention Rn today: Enedina Vargas RN General: No acute distress, speech is clear, forming sentences. 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 Counseled on all types of contraceptive, including types of IUDs Reviewed risks and alternatives to procedure. Patient indicates understanding and gives signed consent. IUD Type: Bimanual examination performed to assess uterine position and orientation. Speculum inserted and cervix prepped with betadine. Cervix grasped with tenaculum. Uterine sounded appropriately at 7 cm IUD inserted to depth sounded. Strings clipped and speculum withdrawn. ASSESSMENT AND PLAN: 1)Encounter for screening of neoplasm of cervix -PAP Done today with HPV -Offered STD screening she declined has not been in sexual relationship in last 3 years -Counseled on healthy lifestyle including diet, exercise and STD prevention -HCM reviewed 2)IUD removal -tolerated well 3)IUD insertion -tolerated well Patient was provided with product information booklet and date of recommended removal. Instructed on monthly string check. Use back up contraception method for 7 days Counseled on STD prevention Return to clinic to see me in 12 months, RTC sooner if needed. Clinical Reminders Medication Reconciliation: Outpatient: Has the patient been taking medications as documented in the EMLR? YES: The patient has been taking medications as documented in the EMLR. Essential Medication List for Review used to complete this medication reconciliation. INCLUDED IN THIS LIST: Alphabetical list of active outpatient prescriptions dispensed from this [place] (local) and dispensed from another [place] or [facility] facility (remote) as well as inpatient orders (local, pending and active), local clinic medications, locally documented non-VA medications, and local prescriptions that have or been discontinued in the past 90 days. - All changes in medications, including all non-VA/Herbal/OTC medications were entered into CPRS. - If there were any medications the patient should no longer take, they were discontinued. - The patient/caregiver was instructed to update this list, discard old lists, and take this list to the next appointment, whether with a VA or non-VA provider. /werner/ DESTINY NEGRO Nurse Practitioner Signed: 10/06/2024 12:49 LETA VAZQUEZ [facility]
--- OUTSIDE RECORDS SUMMARY | 2024-10-22 22:46 | XMS_ITS ---
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 Date/Time Encounter Type Encounter Description Reason Provider Source Jul 29, 2024 10:00 AM OFFICE O/P EST MOD 30 MIN PRIMARY CARE/MEDICINE ICD-10-CM G47.33 Obstructive sleep apnea (adult) (pediatric) FILOMENA SCOTT [facility] Encounter Template Text not used by [place] Assessments - Encounter Diagnoses This section includes the primary and secondary diagnoses documented for the Encounter. Date/Time Primary/Secondary Diagnosis Diagnosis Name Provider Source Jul 29, 2024 11:34 AM PRIMARY Obstructive sleep apnea (adult) (pediatric) [facility] Jul 29, 2024 11:34 AM SECONDARY Concussion without loss of consciousness, initial encounter FILOMENA SCOTT [facility] Jul 29, 2024 11:34 AM SECONDARY Encounter for immunization MARIA ELENA ESTEVES [facility] Jul 29, 2024 11:34 AM SECONDARY Pain in right ankle and joints of right foot FILOMENA SCOTT [facility] Jul 29, 2024 11:34 AM SECONDARY Pain in right shoulder [facility]NA SCOTT [facility] [employer] [facility] Plan of Treatment: Future Appointments (+ 6 months) and Future Tests (+/- 45 days) The Plan of Treatment section includes future care activities for the patient from [facility] This section includes future appointments and future orders which are active, pending or scheduled. Future Appointments This section includes appointments that were scheduled to occur 6 months from the date of the Encounter, up to a maximum of 20 appointments. The data comes from all [place] treatment facilities. Appointment Date/Time Appointment Type Appointme nt Facility Name Aug 01, 2024 02:30 PM [facility] [employer] [facility] Oct 06, 2024 10:00 AM [facility] [employer] Active, Pending, and Scheduled Orders This section includes a listing of several types of active, pending, and scheduled orders, including clinic medications orders, diagnostic test orders, procedure orders and consult orders; where the start date of the order is 45 days before the date of the Encounter or 45 days after the date of theEncounter. The data comes from all [facility]. Test Date/Time Test Type Test Details Facility Name Jul 29, 2024 01:03 PM Consult Order [facility] Cons Gas Appliance Mechanic's Choice [facility] [employer] [facility] Lab Results: +/- 30 days of the encounter This section includes the Chemistry and Hematology Lab Results on record with [place] for the patient. Radiology Reports and Pathology Reports are provided separately, in subsequent sections. Lab Results This section contains the Chemistry/Hematology Results that were resulted 30 days before or 30 daysafter the date of the Encounter. Date/Time Source Result Type Result - Unit Interpretation Reference Range Comment Jul 29, 2024 11:38 AM [facility] [employer] T-SPOT TB PANEL Specimen Type: BLOOD Comment: [...] For additional information, please refer to http://education .[employer]/faq/NBQ694 (This link is being provided for informational/ educational purposes only.) Test Performed by [employer] [facility], [address] [place] [address] Patel Tamez M.D., Ph.D., Director of Laboratories , [place] [id number] TEST PERFORMED AT: , Ordering Provider: FILOMENA SCOTT Report Released Date/Time: Jul 29, 2024 10:55 AM Reporting Lab: [facility] [address] [facility] [address] Performing Lab: [facility] [address] [address] [id number] (o) Negative Negative T-SPOT-PNLA 0 T-SPOT-PNLB 0 Y-TNKM-[id number] L Passed D-EOXN-EYFAXJ L Passed Jul 29, 2024 11:38 AM [facility] MMRV (IGG) IMMUNE STATUS PANEL Specimen Type: [...] Jul 29, 2024 10:55 AM Reporting Lab: [facility] [address] [facility] [address] Performing Lab: [address] [address] MEASLES (IGG) REACTIVE SEE COMMENT MUMPS (IGG) REACTIVE SEE COMMENT RUBELLA (IGG) REACTIVE SEE COMMENT VARICELLA (IGG) REACTIVE SEE COMMENT Jul 29, 2024 11:38 AM [facility] BASIC METABOLIC PANEL (non-fasting) Specimen Type: SERUM No comment entered. Ordering Provider: FILOMENA SCOTT Report Released Date/Time: Jul 29, 2024 10:39 AM Reporting Lab: [address] [address] Performing Lab: [address] [address] UREA NITROGEN 12 mg/dL 7-25 GLUCOSE 94 mg/dL 65-100 SODIUM 141 mmol/L 135-145 POTASSIUM 4.0 mmol/L 3.5-5.0 CHLORIDE 106 mmol/L 100-110 CO2 26 meq/L 20-30 CREATININE, Serum 0.82 mg/dL 0.50-1.40 eGFR(CKD-EPI 2020) >90 mL/min >60 Jul 29, 2024 11:38 AM [facility] LIPID PANEL FASTING Specimen Type: SERUM No comment entered. Ordering Provider: FILOMENA SCOTT Report Released Date/Time: Jul 29, 2024 10:39 AM Reporting Lab: [address] [address] Performing Lab: [address] [address] CHOLESTEROL 159 mg/dL TRIGLYCERIDE 66 mg/dL 0-150 LDL calculated 89 mg/dL 0-129 CHOL/HDL 2.8 HDL CHOLESTEROL 57 mg/dL 40-60 Jul 29, 2024 11:38 AM [facility] LIVER FUNCTION Specimen Type: SERUM No comment entered. Ordering Provider: FILOMENA SCOTT Report Released Date/Time: Jul 29, 2024 10:39 AM Reporting Lab: [facility] [address] [facility] [address] Performing Lab: [address] [address] PROTEIN,TOTAL 6.9 g/dL 6.0-8.3 ALBUMIN 4.5 g/dL 3.5-5.0 ALKALINE PHOSPHATASE 82 U/L 40-150 AST 13 U/L 5-34 ALT 9 U/L BILIRUBIN, TOTAL 1.4 mg/dL H 0.2-1.2 BILIRUBIN, DIRECT 0.5 mg/dL 0-0.5 Jul 29, 2024 11:38 AM [facility] CBC AND DIFF (AUTO) Specimen Type: BLOOD No comment entered. Ordering Provider: FILOMENA SCOTT Report Released Date/Time: Jul 29, 2024 10:39 AM Reporting Lab: [address] [address] Performing Lab: [address] [address] WBC 4.06 10*3/uL L 4.50-11.00 RBC 3.93 [...] 10*3/uL 0.00-0.00 Jul 29, 2024 11:38 AM [facility] HEMOGLOBIN A1C PANEL Specimen Type: BLOOD [...] Jul 29, 2024 10:39 AM Reporting Lab: [address] [address] Performing Lab: [address] [address] HEMOGLOBIN A1C 4.9 4.0-5.6 Jul 29, 2024 11:38 AM [facility] TSH Specimen Type: SERUM No comment entered. Ordering Provider: FILOMENA SCOTT Report Released Date/Time: Jul 29, 2024 10:39 AM Reporting Lab: [address] [address] Performing Lab: [address] [address] TSH 0.80 u[IU]/mL 0.35-5.00 Jul 29, 2024 11:38 AM [facility] HEPATITIS C ANTIBODY (HCV)-ARC Specimen Type: SERUM Comment: Hep C Ab: No HCV antibody detected. If recent infection is suspected or other evidence suggests HCV infection, consider HCV nucleic acid testing Ordering Provider: FILOMENA SCOTT Report Released Date/Time: Jul 29, 2024 11:10 AM Reporting Lab: [facility] [address] [facility] [address] Performing Lab: [facility] [address] [facility] [address] HEPATITIS C ANTIBODY NON-REACTIVE NON-REACTI VE Vital Signs: All taken on the encounter date This section contains inpatient and outpatient Vital Signs collected on the date of the Encounter. Date/Time Temperature Pulse Blood Pressure Respiratory Rate SP02 Pain Height Weight Body Mass Index Source Jul 29, 2024 10:11 AM 97.9 77 108/68 14 98 66 149.8 24 [facility] Immunizations: All administered on the encounter date This section contains immunizations associated to the Encounter. Immunization Series Date Issued Reaction Comments COVID-19 (MODERNA), MRNA, LN P-S, PF, 50 MCG/0.5 ML (AGES 12+ YEARS) Jul 29, 2024 INFLUENZA, SPLIT VIRUS, TRIVALENT, PF Jul 29, 024 Social History: Smoking Status (Most current) and Tobacco Use (All prior to encounter date) This section includes the most current, and the historical, smoking and tobacco- related health factors from the [place] facility where the Encounter took place. Current Smoking Status This section includes the most current smoking, or tobacco-related health factor, from the AR facility where the Encounter took place. Date/Time Current Smoking Status Comment Ha morrell Jul 24, 2024 11:37 AM VA-TOBACCO NEVER USED [facility] Radiology Reports: +/- 30 days of the [...] the Encounter. The data comes from all [place] treatment facilities. Date/Time Radiology Report Provider Source Jul 29, 2024 11:[address] MAXILLOFACIAL W/O CONT: MUKESH DURBIN [id number] -1990 F Exm Date: JUL 29, 2024@11:56 Req Phys: TYLER,FILOMENA CASPER Pat Loc: CWM/NO/PACT 5 (Req'g Loc) Img Loc: [facility]/CT Service: Unknown Screen: Patient answered no [facility] [place] [address] (Case 92 COMPLETE) CT MAXILLOFACIAL W/O CONT (CT Detailed) CPT:64164 Reason for Study: right jaw pain and zygomatic arch pain Clinical History: Post rugby injury last month with head on collision on right side of skull and cheek pain with opening jaw right side Report Status: Verified Date Reported: JUL 31, 2024 Date Verified: JUL 31, 2024 Churn Operator E-Sig: Report: CT MAXILLOFACIAL W/O CONT right [...] tissue swelling. READING PHYSICIAN: Alen Guzman MD -[id number] 07/31/2024 7:21 [facility] National Teleradiology Program [phone] (For Medical Practitioner Use Only) Attention Patients / Veterans: If you have questions or concerns about these test results, please contact your ordering provider or primary care team. Primary Diagnostic Code: NO ALERT REQUIRED Primary Interpreting Staff: RADIOLOGY,OUTSIDE SERVICE, Staff Physician / RADIOLOGY,OUTSIDE SERVICE [facility] Jul 29, 2024 11:55 AM ANKLE 3 OR MORE VIEWS (RIGHT): MUKESH DURBIN [id number] -1990 F Exm Date: JUL 29, 2024@11:55 Req Phys: FILOMENA SCOTT Pat Loc: CWM/NO/PACT 5 (Req'g Loc) Img Loc: [facility] 1 Service: Unknown Screen: Patient answered no [facility] [address] (Case 91 COMPLETE) ANKLE 3 OR MORE VIEWS (RIGHT) (RAD Detailed) CPT:92859 Reason for Study: Right medial ankle pain Clinical History: 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, mild ecchymosis also with small firm pea size tender nodule on medial right ankle just above malleolus Report Status: Verified Date Reported: JUL 29, 2024 Date Verified: JUL 29, 2024 Churn Operator E-Sig:/ES/JEFFERY GARCIA JR Report: Study: AP, lateral [...] Primary Interpreting Staff: JEFFERY GARCIA JR, Radiologist (Churn Operator) /JEFFERY CASTILLO JR [facility] Jul 29, 2024 11:55 AM SHOULDER,COMPLETE(RIGHT): MUKESH DURBIN [id number] -1990 F Exm Date: JUL 29, 2024@11:55 Req Phys: TYLER,FILOMENA CASPER Pat Loc: CWM/NO/PACT 5 (Req'g Loc) Img Loc: [facility] 1 Service: Unknown Screen: Patient answered no [facility] [place] [address] (Case 90 COMPLETE) SHOULDER,COMPLETE(RIGHT) (RAD Detailed) CPT:50498 Reason for Study: Right shoulder pain Clinical History: Post rugby injury last month Report Status: Verified Date Reported: JUL 29, 2024 Date Verified: JUL 29, 2024 Churn Operator E-Sig:/WERNER/JEFFERY GARCIA JR Report: Study: AP internally and [...] Primary Interpreting Staff: JEFFERY GARCIA JR, Radiologist (Churn Operator) /JEFFERY CASTILLO JR [facility] Encounter Notes: All associated encounter notes This section contains the clinical notes associated to the Encounter. 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 /werner/ LINDSAY PUENTE, RN, CNL PRIMARY CARE TEAM NURSE Signed: 08/05/2024 09:49 FILOMENA SCOTT [facility] Aug 01, 2024 09:55 AM PRIMARY CARE TELEPHONE ENCOUNTER NOTE: LOCAL TITLE: TELEPHONE NOTE/PRIMARY CARE STANDARD TITLE: PRIMARY CARE TELEPHONE ENCOUNTER NOTE DATE OF NOTE: AUG 01, 2024@09:55 ENTRY DATE: AUG 01, 2024@09:55:28 AUTHOR: FILOMENA SCOTT EXP COSIGNER: URGENCY: STATUS: COMPLETED Called to let her know that her MMRV is reactive meaning she is immune, awaiting her TSPOT and then will send a letter as she needs these for her school. Also all her other blood work is normal. Lastly I reviewed her recent Maxillofacial CT and she is reassured that no bony abnormalities. She still has right side jaw pain and cannot open her mouth fully, she is taking IBU and eating soft dental diet likely could be trismus meaning could take a few weeks to heal. If no relief should see dental she agrees and will give it more time, she denies fevers difficulty swallowing or inability to swallow saliva. Offered Speech therapy but would like to hold off another week or so to see how she feels she appreciated call back /werner/ DESTINY NEGRO Nurse Practitioner Signed: 08/01/2024 09:57 FILOMENA SCOTT [facility] [employer] Jul 29, 2024 10:14 AM PRIMARY CARE NURSE PRACTITIONER OUTPATIENT NOTE: LOCAL TITLE: NURSE PRACTITIONER OUTPATIENT NOTE STANDARD TITLE: PRIMARY CARE NURSE PRACTITIONER OUTPATIENT NOTE DATE OF NOTE: JUL 29, 2024@10:14 ENTRY DATE: JUL 29, 2024@10:14:37 AUTHOR: FILOMENA SCOTT EXP COSIGNER: URGENCY: STATUS: COMPLETED NURSE PRACTITIONER OUTPATIENT NOTE Has ADDENDA is here for a Well Woman Exam HPI: BP generally runs low that is her baseline Right knee ACL repair oct 2013 left AC separation had repair New injury, has Right shoulder 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 hurt to sleep on it, ROM has improved this occurred in February 2024 Right medial lower leg/ankle now with small bump pea size firm occurred about 1 month she is worried about fracture Had head to head collision with another person at full speed playing rugby, No helmets, right side of head still swollen and very tender to touch, also having jaw pain and headaches she is aware likely a concussion, trying to decrease screen time and stimuli doing as much rest as she can was off a few days from work which helped she is concerned about the jaw pain and will see dental as well JAI was diagnosed while stationed in [employer], she had Sleep [place] through an [facility] and 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 Pain of right knee region ACL repair right knee- 2012 2. Traumatic dislocation of acromioclavicular joint 3. Sleep Apnea MEDICATIONS VA and Non VA meds were reconciled with the patient who left with a corrected copy. See medication page for details. 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 Family hx: Obesity self-induced MGF Type II diabetes MGF and mother and Aunts hypothyroid ROS: General: no fever, no unexplained weight loss or gain CV: denies CP, SOB, palpitations Lung: denies Dyspnea or wheezing Abd: denies n/v/d Ext: denies edema Skin: denies rash or other lesions Psych: denies SI -VITAL SIGNS- 97.9 F [36.6 C] (07/29/2024 10:11) 77 (07/29/2024 10:11) 14 (07/29/2024 10:11) 108/68 (07/29/2024 10:11) 66 in [167.6 cm] (07/29/2024 10:11) 149.8 lb [67.95 kg] (07/29/2024 10:11) BMI: 24.2 PHYSICAL EXAM General: No acute distress, speech is clear, forming sentences. CV: S1S2, RRR, no m/r/g Lung: CTAB, no wheeze, rhonchi, or crackles no audible cough Ext: no edema, warm and well perfused bilat. Skin: no lesions Neuro: CN 2-12 grossly intact, right side of head is ttp where she hit her head Psych: A&Ox3, appropriate mood and affect ASSESSMENT/PLAN: #Right shoulder pain -Never had imaging from injury -Check Xray and consider PT #Right medial lower leg -Xray obtained -Consider US for small tender nodule if needed #Concussion -Given pain with jaw will check maxillofacial CT -For now gave her post-concussion rest instructions -avoid further trauma no rugby -Consider FMLA she declines for now -Consider TBI clinic if needed #JAI -Dx while in no cpap never got it -Sill try to get records or consider another HST return for IUD removal and reinsertion and pap The above plan and education was reviewed with the and they verbalized understanding. Return to clinic to see me in 2 months, RTC sooner if needed. -CLINICAL REMINDERS- Service Act Breast Cancer Risk Assessment : Service Act Screening Patient history reviewed and has not served in applicable areas and thus does not require screening under the Service Act. 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 The /caregiver was informed that we will continue to ask this screening question every 5 years. They can contact their provider/healthcare team if they have concerns about exposures and would like to be screened sooner. Printed information was offered and provided if desired. Cervical Cancer Screening: The patient has had a documented normal cervical cytology completed previously. Location: Outside Healthcare Provider Date: February 09, 2020 Comment: nilm The patient has had screening for cervical HPV completed previously and the results are negative. No intermediate or high risk HPV detected. Location: Outside Healthcare Provider Date: February 09, 2020 Screen for Embedded Fragments: SCREEN FOR EMBEDDED FRAGMENTS The patient reports no embedded fragments. Hepatitis C Testing: Patient has given verbal consent for HCV antibody testing. An HCV lab test has been ordered - see orders tab. HIV Screening: Patient has been offered HIV testing and has declined. I have explained that HIV testing is recommended for all adults, even if all risk factors are absent. The patient was educated on the risk of delayed screening. /Intentions/Contra ception: The patient is medically able to conceive. The patient states that they are not . An automated review of this patient's chart indicates the following orders are potentially harmful: Orderable Item Status Start Stop Non-VA IBUPROFEN TAB ACTIVE ANKLE 2 VIEWS(RIGHT) PENDING 07/29/2024 SHOULDER,COMPLETE(RIGHT) PENDING 07/29/2024 CT MAXILLOFACIAL W/O CONT PENDING 07/29/2024 Action following medication review: Counseling not indicated at this time Patient previously counseled regarding risks/benefits of medication(s) The patient does not desire within the next year. The patient is using an IUD to prevent . Update Status: The patient is not currently lactating. Folic Acid for Women 18-46: Patient declines Folic Acid at this time Medication Reconciliation: Outpatient: Has the patient been taking medications as documented in the EMLR? YES: The patient has been taking medications as documented in the EMLR. Essential Medication List for Review used to complete this medication reconciliation. INCLUDED IN THIS LIST: Alphabetical list of active outpatient prescriptions dispensed from this VA (local) and dispensed from another VA or DoD facility (remote) as well as inpatient orders [...] provider. /werner/ DESTINY NEGRO Nurse Practitioner Signed: 07/29/2024 11:34 07/29/2024 ADDENDUM STATUS: COMPLETED called to let her know her Shoulder xray is normal her ankle xray is showing a small well-corticated 6 mm bone fragment inferior to the lateral malleolus consistent with remote prior avulsion fracture injury. otherwise is normal I will placed a referral for her to see Ortho regarding this finding she appreciated call, i will also call her back when CT of maxillofacial has been done /werner/ DESTINY NEGRO Nurse Practitioner Signed: 07/29/2024 13:01 FILOMENA SCOTT [facility] Jul 29, 2024 10:12 AM PREVENTIVE MEDICINE NURSING NOTE: LOCAL TITLE: CLINICAL REMINDERS/NURSING STANDARD TITLE: PREVENTIVE MEDICINE NURSING NOTE DATE OF NOTE: JUL 29, 2024@10:12 ENTRY DATE: JUL 29, 2024@10:13 AUTHOR: MARIA ELENA ESTEVES EXP COSIGNER: URGENCY: STATUS: COMPLETED CLINICAL REMINDERS/NURSING Has ADDENDA Influenza Immunization: Influenza, Trivalent, Preservative Free (Fluarix-Syringe) Administered: INFLUENZA, SPLIT VIRUS, TRIVALENT, PF Date Administered: Jul 29, 2024 10:00 Series: Complete Soda Tester: [employer] Lot: [id number] Exp Date: May 11, 2025 NDC: [id number] Admin Route/Site: INTRAMUSCULAR/LEFT DELTOID Dosage: 0.5mL Vaccine Information Statement(s): INFLUENZA(FLU) VACC(INACTIVATED OR RECOMBINANT)VIS Jun 17, 2021 (GEORGIAN) Order By: Policy Administered By: Maria Elena Esteves The Influenza Vaccine Information Statement (VIS) was reviewed with the patient/caregiver which lists the benefits and risks of the vaccine and the risks of not receiving the Influenza vaccine. The patient/caregiver denied any prior severe reaction to this vaccine or its components or a severe allergic reaction, such as anaphylaxis, to any vaccine or any injectable therapy. The patient/caregiver gave verbal consent to receive the vaccine. COVID-19 Immunization: Moderna Monovalent (Spikevax) Administered: COVID-19 (MODERNA), MRNA, LNP-S, PF, 50 MCG/0.5 ML (AGES 12+ YEARS) Date Administered: Jul 29, 2024 10:00 Series: Booster Soda Tester: MODERNA [employer] Lot: [id number] Exp Date: April 04, 2025 NDC: [id number] Admin Route/Site: INTRAMUSCULAR/LEFT DELTOID Dosage: 0.5mL Vaccine Information Statement(s): COVID-19 MRNA VACCINE (12+ YRS) VACCINE VIS Aug 30, 2023 (GEORGIAN) Order By: Policy Administered By: Maria Elena Esteves Vaccine administered without complications. /LINDSAY Pyle, RN, CNL PRIMARY CARE TEAM NURSE Signed: 07/29/2024 10:14 07/30/2024 ADDENDUM STATUS: COMPLETED Hepatitis B Serology/Immunization: Hepatitis B vaccine given previously - written records available Hepatitis B vaccine - standard 3 dose series (Energix, Recombivax, etc) Documented: HEP B, ADULT Historical Date Administered: Aug 09, 1995 Series: Series 1 Outside Location: Outside Healthcare Provider Information Source: FROM PATIENT'S WRITTEN RECORD Documented: HEP B, ADULT Historical Date Administered: Sep 12, 1995 Series: Series 2 Outside Location: Outside Healthcare Provider Information Source: FROM PATIENT'S WRITTEN RECORD Documented: HEP B, ADULT Historical Date Administered: March 25, 1996 Series: Series 3 Outside Location: Outside Healthcare Provider Information Source: FROM PATIENT'S WRITTEN RECORD /LINDSAY Pyle, RN, CNL PRIMARY CARE TEAM NURSE Signed: 07/30/2024 15:44 [facility] ELENA [facility]EVES [facility]
--- OUTSIDE RECORDS SUMMARY | 2024-10-22 22:46 | XMS_ITS ---
Author Name [facility] Organization [facility] Address [address] [place] [address] Care Team Providers Care Cotton Bag Sewer Name Role Phone TYLER FILOMENA Primary Care Provider Unavailshelley e Insurance Providers: [...] TRICA RE DODA* Jun 16, 2024 DODA [id number] Luis Carlos DURBIN PATIENT [facility] [address] T Jun 16, 2024 [id number] Luis Carlos DURBIN PATIENT Selected Encounter This section includes the information on record at [place] for the Encounter. Date/Time Encounter Type Encounter Description Reason Pro vider Source Jul 25, 2024 05:27 PM Outpatient Encounter TELEPHONE PRIMARY CARE IHE Encounter Template Text not used by [place] Plan of Treatment: Future Appointments (+ 6 months) and Future Tests (+/- 45 days) The Plan of Treatment section includes future care activities for the patient from all [place] treatmentfacilities. This section includes future appointments and future orders which are active, pending or scheduled. Future Appointments This section includes appointments that were scheduled to occur 6 months from the date of the Encounter, up to a maximum of 20 appointments. The data comes from all [place] treatment facilities. Appointment Date/Time Appointment Type Appointme nt Facility Name Jul 29, 2024 10:00 AM [facility] Jul 29, 2024 11:45 AM [facility] Aug 01, 2024 02:30 PM [facility] - MEDICINE [facility] Oct 06, 2024 10:00 AM [facility] Active, Pending, and Scheduled Orders This section includes a listing of several types of active, pending, and scheduled orders, including clinic medications orders, diagnostic test orders, procedure orders and consult orders; where the start date of the order is 45 days before the date of the Encounter or 45 days after the date of theEncounter. The data comes from all [place] treatment facilities. Test Date/Time Test Type Test Details Facility Name Jul 29, 2024 01:03 PM Consult Order [facility] GENER[facility] Cons Senior Animal Trainer's Choice [facility] Lab Results: +/- 30 days of [...] Range Comment Jul 29, 2024 11:38 AM [facility] T-SPOT TB PANEL Specimen Type: BLOOD Comment: [...] For additional information, please refer to http://education .[employer]faq/LKT456 (This link is being provided for informational/ educational purposes only.) Test Performed by [facility], [address] [place] [address] Patel Tamez M.D., Ph.D., Director of Laboratories , CLIA [id number] TEST PERFORMED AT: , Ordering Provider: FILOMENA SCOTT Report Released Date/Time: Jul 29, 2024 10:55 AM Reporting Lab: [facility] [address] [facility] [address] Performing Lab: [facility] [address] [place] [id number] H-RCTO-OLUGEV (o) Negative Negative T-SPOT-PNLA 0 T-SPOT-PNLB 0 L-IEFP-MPJKHD L Passed H-HUIU-PNTFEX L Passed Jul 29, 2024 11:38 AM [facility] MMRV (IGG) IMMUNE STATUS PANEL Specimen [...] Jul 29, 2024 10:55 AM Reporting Lab: [address] [address] Performing Lab: [address] [address] MEASLES (IGG) REACTIVE SEE COMMENT MUMPS (IGG) REACTIVE SEE COMMENT RUBELLA (IGG) REACTIVE SEE COMMENT VARICELLA (IGG) REACTIVE SEE COMMENT Jul 29, 2024 11:38 AM [facility] BASIC METABOLIC PANEL (non-fasting) Specimen Type: SERUM No comment entered. Ordering Provider: FILOMENA SCOTT Report Released Date/Time: Jul 29, 2024 10:39 AM Reporting Lab: [address] [address] Performing Lab: [facility] [address] [facility] [address] UREA NITROGEN 12 mg/dL 7-25 GLUCOSE 94 mg/dL 65-100 SODIUM 141 mmol/L 135-145 POTASSIUM 4.0 mmol/L 3.5-5.0 CHLORIDE 106 mmol/L 100-110 CO2 26 meq/L 20-30 CREATININE, Serum 0.82 mg/dL 0.50-1.40 eGFR(CKD-EPI 2020) >90 mL/min >60 Jul 29, 2024 11:38 AM [facility] LIPID PANEL FASTING Specimen Type: SERUM No comment entered. Ordering Provider: FILOMENA SCOTT Report Released Date/Time: Jul 29, 2024 10:39 AM Reporting Lab: [facility] [address] [facility] [address] Performing Lab: [address] [address] CHOLESTEROL 159 mg/dL TRIGLYCERIDE 66 mg/dL 0-150 LDL calculated 89 mg/dL 0-129 CHOL/HDL 2.8 HDL CHOLESTEROL 57 mg/dL 40-60 Jul 29, 2024 11:38 AM [facility] LIVER FUNCTION Specimen Type: SERUM No comment entered. Ordering Provider: FILOMENA SCOTT Report Released Date/Time: Jul 29, 2024 10:39 AM Reporting Lab: [address] [address] Performing Lab: [address] [address] PROTEIN,TOTAL 6.9 g/dL 6.0-8.3 ALBUMIN 4.5 g/dL 3.5-5.0 ALKALINE PHOSPHATASE 82 U/L 40-150 AST 13 U/L 5-34 ALT 9 U/L BILIRUBIN, TOTAL 1.4 mg/dL H 0.2-1.2 BILIRUBIN, DIRECT 0.5 mg/dL 0-0.5 Jul 29, 2024 11:38 AM [facility] CBC AND DIFF (AUTO) Specimen Type: BLOOD No comment entered. Ordering Provider: FILOMENA SCOTT Report Released Date/Time: Jul 29, 2024 10:39 AM Reporting Lab: [facility] [address] [facility] [address] Performing Lab: [facility] [address] [facility] [address] WBC 4.06 10*3/uL L 4.50-11.00 RBC 3.93 [...] 10*3/uL 0.00-0.00 Jul 29, 2024 11:38 AM [facility] HEMOGLOBIN A1C PANEL Specimen Type: BLOOD [...] Jul 29, 2024 10:39 AM Reporting Lab: [facility] [address] [facility] [address] Performing Lab: [address] [address] HEMOGLOBIN A1C 4.9 4.0-5.6 Jul 29, 2024 11:38 AM [facility] TSH Specimen Type: SERUM No comment entered. Ordering Provider: FILOMENA SCOTT Report Released Date/Time: Jul 29, 2024 10:39 AM Reporting Lab: [address] [address] Performing Lab: [address] [address] TSH 0.80 u[IU]/mL 0.35-5.00 Jul 29, 2024 11:38 AM [facility] HEPATITIS C ANTIBODY (HCV)-ARC Specimen Type: SERUM Comment: Hep C Ab: No HCV antibody detected. If recent infection is suspected or other evidence suggests HCV infection, consider HCV nucleic acid testing Ordering Provider: FILOMENA SCOTT Report Released Date/Time: Jul 29, 2024 11:10 AM Reporting Lab: [address] [address] Performing Lab: [address] [address] HEPATITIS C ANTIBODY NON-REACTIVE NON-REACTI VE Social [...] place. Date/Time Current Smoking Status Comment Facil petros Jul 24, 2024 11:37 AM VA-TOBACCO NEVER USED [facility] Radiology Reports: +/- 30 days of [...] AM CT MAXILLOFACIAL W/O CONT: MUKESH DURBIN [id number] -1990 F Exm Date: JUL 29, 2024@11:56 Req Phys: FILOMENA SCOTT Pat Loc: CWM/NO/PACT 5 (Req'g Loc) Img Loc: NHM/CT Service: Unknown Screen: Patient answered no [facility] [place] [address] (Case 92 COMPLETE) CT MAXILLOFACIAL W/O CONT (CT Detailed) CPT:75565 Reason for Study: right jaw pain and zygomatic arch pain Clinical History: Post rugby injury last month with head on collision on right side of skull and cheek pain with opening jaw right side Report Status: Verified Date Reported: JUL 31, 2024 Date Verified: JUL 31, 2024 Group Fitness Department Head E-Sig: Report: CT MAXILLOFACIAL W/O CONT right [...] tissue swelling. READING PHYSICIAN: Alen Guzman MD -[id number] 07/31/2024 7:21 [facility] [employer] Labsradiology Program [phone] (For Medical Practitioner Use Only) Attention Patients / Veterans: If you have questions or concerns about these test results, please contact your ordering provider or primary care team. Primary Diagnostic Code: NO ALERT REQUIRED Primary Interpreting Staff: RADIOLOGY,OUTSIDE SERVICE, Staff Physician / RADIOLOGY,OUTSIDE SERVICE [facility] Jul 29, 2024 11:55 AM ANKLE 3 OR MORE VIEWS (RIGHT): MUKESH DURBIN [id number] -1990 F Exm Date: JUL 29, 2024@11:55 Req Phys: TYLERFILOMENACaty SHIRLEY Pat Loc: CWM/NO/PACT 5 (Req'g Loc) Img Loc: [facility]/BUILDING 1 Service: Unknown Screen: [place] [address] (Case 91 COMPLETE) ANKLE 3 OR MORE VIEWS (RIGHT) (RAD Detailed) CPT:46180 Reason for Study: Right medial ankle pain Clinical History: 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, mild ecchymosis also with small firm pea size tender nodule on medial right ankle just above malleolus Report Status: Verified Date Reported: JUL 29, 2024 Date Verified: JUL 29, 2024 Group Fitness Department Head E-Sig:/ES/JEFFERY GARCIA JR Report: Study: AP, lateral [...] Primary Interpreting Staff: JEFFERY GARCIA JR, Radiologist (Group Fitness Department Head) /JEFFERY CASTILLO JR [facility] Jul 29, 2024 11:55 AM SHOULDER,COMPLETE(RIGHT): MUKESH DURBIN [id number] -1990 F Exm Date: JUL 29, 2024@11:55 Req Phys: FILOMENA SCOTT Pat Loc: CWM/NO/PACT 5 (Req'g Loc) Img Loc: [facility]BUILD[facility] 1 Service: Unknown Screen: [place] [address] (Case 90 COMPLETE) SHOULDER,COMPLETE(RIGHT) (RAD Detailed) CPT:91676 Reason for Study: Right shoulder pain Clinical History: Post rugby injury last month Report Status: Verified Date Reported: JUL 29, 2024 Date Verified: JUL 29, 2024 Group Fitness Department Head E-Sig:/ES/JEFFERY GARCIA JR Report: Study: AP internally [...] Primary Interpreting Staff: JEFFERY GARCIA JR, Radiologist (Group Fitness Department Head) /JEFFERY CASTILLO JR [facility] Encounter Notes: All associated encounter notes This section contains the clinical notes associated to the Encounter. Date/Time Encounter Note(s) Provider Source Jul 25, 2024 05:29 PM NURSING IMMUNIZATION NOTE: LOCAL TITLE: IMMUNIZATION OUTPATIENT STANDARD TITLE: NURSING IMMUNIZATION NOTE DATE OF NOTE: JUL 25, 2024@17:29 ENTRY DATE: JUL 25, 2024@17:29:21 AUTHOR: MILANA REYES COSIGNER: URGENCY: STATUS: COMPLETED O: 34 y.o. FEMALE referred to Nurse Clinic The patient has the following allergies: Patient has answered NKA Reason for referral: OTHER IMMUNIZATIONS/VACCINATION S: POLIO VACCINE: Patient indicated Inactivated Polio Vaccine (IPV) injection was received at another facility. Documented: IPV Historical Date Administered: Jan 04, 2017 Freezer Laboratory Technician: SANOFI PASTEUR Lot: [id number] Exp Date: Unknown Outside Location: Outside Healthcare Provider Admin Route/Site: SUBCUTANEOUS/LEFT ARM Dosage: 0.5mL Information Source: FROM OTHER REGISTRY Comment: poliovirus vaccine, inactivated Documented: MENINGOCOCCAL MCV4P Historical Date Administered: Dec 01, 2016 Series: Series 1 Freezer Laboratory Technician: SANOFI PASTEUR Lot: [id number] Exp Date: Unknown Outside Location: Outside Healthcare Provider Admin Route/Site: INTRAMUSCULAR/LEFT DELTOID Dosage: 0.5mL Information Source: FROM OTHER REGISTRY Comment: meningococcal polysaccharide (groups A, C, Y and W-135) diphtheria toxoid conjugate vaccine (MCV4P) Documented: HPV9 Historical Date Administered: March 26, 2017 Lot: [id number] Exp Date: Unknown Outside Location: Outside Healthcare Provider Information Source: FROM OTHER REGISTRY Comment: Human Papillomavirus 9-valent vaccine Documented: HPV9 Historical Date Administered: Jul 30, 2017 Lot: [id number] Exp Date: Unknown Outside Location: Outside Healthcare Provider Admin Route/Site: INTRAMUSCULAR/LEFT DELTOID Dosage: 0.5mL Information Source: FROM OTHER REGISTRY Comment: Human Papillomavirus 9-valent vaccine Documented: HEP A, ADULT Historical Date Administered: Dec 01, 2016 Series: Series 1 Lot: [id number] Exp Date: Unknown Outside Location: Outside Healthcare Provider Admin Route/Site: INTRAMUSCULAR/LEFT DELTOID Dosage: 0.5mL Information Source: FROM OTHER REGISTRY Comment: hepatitis A vaccine, adult dosage Documented: HEP A, ADULT Historical Date Administered: Jul 30, 2017 Series: Series 2 Lot: [id number] Exp Date: Unknown Outside Location: Outside Healthcare Provider Admin Route/Site: INTRAMUSCULAR/LEFT DELTOID Dosage: 1.0mL Information Source: FROM OTHER REGISTRY Comment: hepatitis A vaccine, adult dosage Documented: ADENOVIRUS TYPES 4 AND 7 Historical Date Administered: Dec 01, 2016 Series: Series 1 Lot: [id number] Exp Date: Unknown Outside Location: Outside Healthcare Provider Admin Route/Site: ORAL/ Information Source: FROM OTHER REGISTRY Comment: Adenovirus, type 4 and type 7, live, oral /es/ MILANA REYES MSN Ed., BSN MUSHROOM SORTER GRADER NURSE Signed: 07/25/2024 17:41 MILANA [address]YES [facility]
--- OUTSIDE RECORDS SUMMARY | 2024-10-22 22:46 | XMS_ITS | Encounter Summary ---
Author Name [facility] Address [address] [place] [address] Care Team Providers Care Ekg/Ecg Technician Name Role Phone TYLER LETA Primary Care Provider Unavailabl e Insurance Providers: [...] TRICA RE DODA* Jun 16, 2024 DODA [id number] 09 Luis Carlos MARTINS PATIENT [facility] [address] T Jun 16, 2024 [id number] Luis Carlos MARTINS PATIENT Selected Encounter This section includes the information on record at [place] for the Encounter. Date/Time Encounter Type Encounter Description Reason Pro vider Source Oct 17, 2024 01:06 PM Outpatient Encounter PRIMARY CARE/MEDICINE IHE Encounter Template Text not used by [place] Plan of Treatment: Future Appointments (+ 6 [...] of theEncounter. The data comes from all [facility] facilities. Test Date/Time Test Type Test Details Facility Name Oct 06, 2024 12:57 PM Consult Order [facility]-MRI Cons Wood [employer]ingle Roofer's Choice [facility] Lab Results: +/- 30 days of the encounter This section includes the Chemistry and Hematology Lab Results on record with [place] for the patient. Radiology Reports and Pathology Reports are provided separately, in subsequent sections. Lab Results This section contains the Chemistry/Hematology Results that were resulted 30 days before or 30 daysafter the date of the Encounter. Date/Time Source Result Type Result - Unit Interpretation Reference Range Comment Oct 06, 2024 02:07 PM [facility] HCG QUAL, URINE Specimen Type: URINE Comment: Test performd by Leta Vazqeuz NP. [facility] Ordering Provider: LETA VAZQUEZ Report Released Date/Time: Oct 06, 2024 11:28 AM Reporting Lab: [facility] [address] [facility] [address] Performing Lab: [facility] [address] [facility] [address] HCG QUAL, URINE Negative NEGATIVE Social History: Smoking Status (Most current) and Tobacco Use (All prior to encounter date) This section includes the most current, and the historical, smoking and tobacco- related health factors from the [place] facility where the Encounter took place. Current Smoking Status This section includes the most current smoking, or tobacco-related health factor, from the [place] facility where the Encounter took place. Date/Time Current Smoking Status Comment Ha morrell Jul 24, 2024 11:37 AM VA-TOBACCO NEVER USED [facility] Pathology Reports: +/- 30 days of [...] the Encounter. The data comes from all [place] treatment facilities. Date/Time Pathology Report Provider Source Oct 16, 2024 01:52 PM LR CYTOPATHOLOGY REPORT: LOCAL TITLE: LR CYTOPATHOLOGY REPORT STANDARD TITLE: PATHOLOGY DIAGNOSTIC STUDY REPORT DATE OF NOTE: OCT 16, 2024@13:52:33 ENTRY DATE: OCT 16, 2024@13:52:33 AUTHOR: KRISTINE GREENE EXP COSIGNER: URGENCY: STATUS: COMPLETED $APHDR Reporting Lab: [facility] [CLIA# [id number]] [address] [place] [id number] - - - - - - - [...] (Received Oct 06, 2024 14:54): CERVICAL CYTOLOGY [id number] - - - - - - - [...] Results should be correlated with clinical information. CPT:47382,59162 HPV REPORT PERFORMED BY: [facility] [CLIA# [id number]] [address] [place] [id number] HPV DNA, HIGH RISK TEST HPV16 NEG [...] 2024@13:52 Performing Laboratory: Cytology Report Performed By: [facility] [CLIA# [id number]] [address] [place] [address] $FTR - - - - - - - - - - - - - - - - - - - - - - - - - - - - - - - - - - - - - - - - (End of report) KRISTINE GREENE MD ml Date Oct 16, 2024 - - - - - - - - - - - - - - - - - - - - - - - - - - - - - - - - - - - - - - - - MUKESH MARTINS STANDARD FORM 515 ID:[id number] SEX:F :1990 AGE: 34 LOC:CWM/NO/PACT 5 PCP: Leta Vazquez /werner/ KRISTINE GREENE Signed: 10/16/2024 13:52 KRISTINE GREENE [facility] Encounter Notes: All associated encounter notes This section contains the clinical notes associated to the Encounter. Date/Time Encounter Note(s) Provider Source Oct 17, 2024 01:09 PM LETTERS: LOCAL TITLE: PATIENT LETTER (T) STANDARD TITLE: LETTERS DATE OF NOTE: OCT 17, 2024@13:09 ENTRY DATE: OCT 17, 2024@13:09:47 AUTHOR: DEBORAH TAPIA COSIGNER: URGENCY: STATUS: COMPLETED DEPARTMENT OF [facility] Toll Free Number Primary Care Telephone Assistance can be reached at extension [phone] [facility] scheduling can be reached at extension [phone] [facility] scheduling can be reached at ext [phone] MUKESH MARTINS [address], [address] October 17, 2024 Dear Tamiko Martins, This letter is to inform you of the results of your cervical cancer screening (Pap smear) done on October 06, 2024. The results were normal and your HPV screen (checking for the virus that causes cervical cancer) was negative. Given these results, you can repeat your pap smear in 5 years. Please feel free to call with any questions at [phone]. Sincerely, DESTINY Byrd Primary [facility] [place] Sincerely, Your Primary Care Team [facility] [address] [facility] [address] [place] [address] [place] [address] [phone] [facility] [address] [place] [address] [place] [address] [phone] [facility] [address] [facility] [place] [address] [place] [address] DEBORAH TAPIA [facility] Oct 17, 2024 01:06 PM PREVENTIVE MEDICIN E NURSING NOTE: LOCAL TITLE: CLINICAL REMINDERS/NURSING STANDARD TITLE: PREVENTIVE MEDICINE NURSING NOTE DATE OF NOTE: OCT 17, 2024@13:06 ENTRY DATE: OCT 17, 2024@13:06:50 AUTHOR: DEBORAH TAPIA EXP COSIGNER: URGENCY: STATUS: COMPLETED Cervical Cancer Screening: The patient has had a documented normal cervical cytology completed previously. Location: [facility] Domicilliary Date: October 06, 2024 The patient has had screening for cervical HPV completed previously and the results are negative. No intermediate or high risk HPV detected. Date: October 06, 2024 Changed cervical cancer screening frequency to every 5 years. /werner/ Deborah Tapia RN, BSN Women's Healthcare Navigator, RN Signed: 10/17/2024 13:07 DEBORAH TAPIA [facility]
--- OUTSIDE RECORDS SUMMARY | 2024-10-22 22:46 | XMS_ITS ---
Author Name [facility] [place] Organization [facility] Address [address] [place] [address] Care Team Providers Care Cytology Manager Name Role Phone FILOMENA SCOTT Primary Care [...] TRICA RE DODA* Jun 16, 2024 DODA [id number] [phone] Luis Carlos DURBIN PATIENT [facility] [address] Jun 16, 2024 [id number] Luis Carlos DURBIN PATIENT Selected Encounter This section includes the information on record at [place] for the Encounter. Date/Time Encounter Type Encounter Description Reason Pro vider Source Jun 25, 2024 09:55 AM Outpatient Encounter ADMIN PAT ACTIVTIES (MASNONCT) IHE Encounter Template Text not used by [place] Plan of Treatment: Future Appointments (+ 6 months) and Future Tests (+/- 45 days) The Plan of Treatment section includes future care activities for the patient from all [place] treatmentfacilities. This section includes future appointments and future orders which are active, pending or scheduled. Future Appointments This section includes appointments that were scheduled to occur 6 months from the date of the Encounter, up to a maximum of 20 appointments. The data comes from all [place] treatment facilities. Appointment Date/Time Appointment Type Appointme nt Facility Name Jul 29, 2024 10:00 AM [place]ATORY [place]IC[place] [facility] Jul 29, 2024 11:45 AM AMBULATORY - NONE [facility] Aug 01, 2024 02:30 PM [place]ORY [place]ICINE [place] [facility] Oct 06, 2024 10:00 AM AMBULATORY - MEDICINE [facility] [place] [facility] Active, Pending, and Scheduled Orders This section includes a listing of several types of active, pending, and scheduled orders, including clinic medications orders, diagnostic test orders, procedure orders and consult orders; where the start date of the order is 45 days before the date of the Encounter or 45 days after the date of theEncounter. The data comes from all [place] treatment facilities. Test Date/Time Test Type Test Details Facility Name Jul 29, 2024 01:03 PM Consult Order [facility] Broker Associate's Choice [place] [facility] [place] [facility] Encounter Notes: All associated encounter notes This section contains the clinical notes associated to the Encounter. Date/Time Encounter Note(s) Provider Source Jun 30, 2024 04:42 PM ADDENDUM: LOCAL TITLE: Addendum STANDARD TITLE: ADDENDUM DATE OF NOTE: JUN 30, 2024@16:42:11 ENTRY DATE: JUN 30, 2024@16:42:11 AUTHOR: WILMA LOCO COSIGNER: URGENCY: STATUS: COMPLETED Please call to establish care in [place]. /werner/ WILMA LOCO GIS SCIENTIST AMSA Signed: 06/30/2024 16:46 Receipt Acknowledged By: 07/25/2024 17:50 /werner/ MILANA REYES MSN Ed., BSN SQL TECH NURSE === --- Original Document --- 06/25/24 CCC: SCHEDULING ADMINISTRATION: Patient Demographics Patient Name: MUKESH DURBIN Patient Primary Phone: [phone] Patient Primary Address: [address] [place] [id number] Patient : 1990 Patient Age: 34 Caller/Recipient Relation to Patient: Self Administrative Administrative Note Reason: Other Administrative Note Comments: [place] is requesting a call back Reason: would like to establish care with a PACT in [place] and schedule new patient appointment. Please call to advise IMPORTANT: This note was created by [facility] Clinical Contact Center staff. Please do not alert the staff member by adding them as a signer for future communications. Alerts are not monitored by this user. /werner/ BHAVANA MOHAN 1 [facility] AMSA Signed: 06/25/2024 09:55 Receipt Acknowledged By: 06/25/2024 20:37 /es/ NO SEQUEIRA MSA GIS SCIENTIST, [facility] 06/30/2024 16:40 /es/ W[facility] GIS SCIENTIST [facility] 06/25/2024 10:31 /es/ Alysha Madison ADVANCED RIVETER PNEUMATIC for WILMA CLEMENTE [place] [facility] [place] [facility] Jun 25, 2024 09:55 AM ADMINISTRATIVE NOTE: LOCAL TITLE: CCC: SCHEDULING ADMINISTRATION STANDARD TITLE: ADMINISTRATIVE NOTE DATE OF NOTE: JUN 25, 2024@09:55:10 ENTRY DATE: JUN 25, 2024@09:55:10 AUTHOR: BHAVANA JAMES COSIGNER: URGENCY: STATUS: COMPLETED CCC: SCHEDULING ADMINISTRATION Has ADDENDA Patient Demographics Patient Name: MUKESH DURBIN Patient Primary Phone: [phone] Patient Primary [address]: [address] [place] [address] [place] [address] Patient : 1990 Patient Age: 34 Caller/Recipient Relation to Patient: Self Administrative Administrative Note Reason: Other Administrative Note Comments: is requesting a call back Reason: [place] would like to establish care with a PACT in [place] and schedule new patient appointment. Please call to advise IMPORTANT: This note was created by [facility] Clinical Contact Center staff. Please do not alert the staff member by adding them as a signer for future communications. Alerts are not monitored by this user. /werner/ BHAVANA MOHAN 1 [facility] AMSA Signed: 06/25/2024 09:55 Receipt Acknowledged By: 06/25/2024 20:37 /es/ NO SEQUEIRA MSA GIS SCIENTIST, [facility] 06/30/2024 16:40 /es/ WILMA LOCO GIS SCIENTIST AMSA 06/25/2024 10:31 /es/ Alysha Madison ADVANCED RIVETER PNEUMATIC for MARTHA PAGAN 06/30/2024 ADDENDUM STATUS: COMPLETED Please call to establish care in [place]. /werner/ WILMA LOCO GIS SCIENTIST AMSA Signed: 06/30/2024 16:46 Receipt Acknowledged By: * AWAITING SIGNATURE * MILANA REYES JASMINE L [facility]
--- OUTSIDE RECORDS SUMMARY | 2024-10-22 22:46 | XMS_ITS ---
Author Name [facility] Organization [facility] Address [address] [place] [id number] Care Team Providers Care Director Cpg Name Role Phone TYLER LETA Primary Care Provider Calvin e Insurance Providers: All historical and current [...] TRICA RE DODA* Jun 16, 2024 DODA [id number] Luis Carlos DURBIN PATIENT [facility] [address] Jun 16, 2024 [id number] Luis Carlos DURBIN PATIENT Selected Encounter This section includes the information on record at [place] for the Encounter. Date/Time Encounter Type Encounter Description Reason Provider Source Oct 16, 2024 01:52 PM Outpatient Encounter EVENT (HISTORICAL) KRISTINE GREENE Kat Encounter Template Text not used by [place] Plan of Treatment: Future Appointments (+ 6 [...] of theEncounter. The data comes from all [facility] facilities. Test Date/Time Test Type Test Details Facility Name Oct 06, 2024 12:57 PM Consult Order COMMUNITY CARE-MRI Cons Sodder's Choice [facility] Yuanfen~Flow™[facility] – OKLAHOMA CITYQwikwire [facility] Lab Results: +/- 30 days of the encounter This section includes the Chemistry and Hematology Lab Results on record with [place] for the patient. Radiology Reports and Pathology Reports are provided separately, in subsequent sections. Lab Results This section contains the Chemistry/Hematology Results that were resulted 30 days before or 30 daysafter the date of the Encounter. Date/Time Source Result Type Result - Unit Interpretation Reference Range Comment Oct 06, 2024 02:07 PM [facility] HCG QUAL, URINE Specimen Type: URINE Comment: Test performd by Leta Vazquez NP. [facility] Ordering Provider: LETA VAZQUEZ Report Released Date/Time: Oct 06, 2024 11:28 AM Reporting Lab: [facility] [address] [phone] Performing Lab: [facility] [address] [phone] HCG QUAL, URINE Negative NEGATIVE Social History: Smoking Status (Most current) and Tobacco Use (All prior to encounter date) This section includes the most current, and the historical, smoking and tobacco- related health factors from the [place] facility where the Encounter took place. Current Smoking Status This section includes the most current smoking, or tobacco-related health factor, from the [place] facility where the Encounter took place. Date/Time Current Smoking Status Comment Ha morrell Jul 24, 2024 11:37 AM VA-TOBACCO NEVER USED [facility] Pathology Reports: +/- 30 days of [...] the Encounter. The data comes from all [place] treatment facilities. Date/Time Pathology Report Provider Source Oct 16, 2024 01:52 PM LR CYTOPATHOLOGY REPORT: LOCAL TITLE: LR CYTOPATHOLOGY REPORT STANDARD TITLE: PATHOLOGY DIAGNOSTIC STUDY REPORT DATE OF NOTE: OCT 16, 2024@13:52:33 ENTRY DATE: OCT 16, 2024@13:52:33 AUTHOR: KRISTINE GREENE EXP COSIGNER: URGENCY: STATUS: COMPLETED $APHDR Reporting Lab: [facility] [CLIA# [id number]] [address] [place] [phone] - - - - - - - [...] (Received Oct 06, 2024 14:54): CERVICAL CYTOLOGY [id number] - - - - - - - [...] Results should be correlated with clinical information. CPT:96388,14525 HPV REPORT PERFORMED BY: [facility] [CLIA# [id number]] [address] [place] [id number] HPV DNA, HIGH RISK TEST HPV16 NEG [...] 2024@13:52 Performing Laboratory: Cytology Report Performed By: [facility] [CLIA# [id number]] [address] [place] [address] $FTR - - - - - - [...] - - MUKESH DURBIN STANDARD FORM 515 ID:[id number] SEX:F :1990 AGE: 34 LOC:CWM/NO/PACT 5 PCP: Leta Vazquez /werner/ KRISTINE GREENE Signed: 10/16/2024 13:[address] [facility] [employer] [facility] Encounter Notes: All associated encounter notes This section contains the clinical notes associated to the Encounter. Date/Time Encounter Note(s) Provider Source Oct 16, 2024 01:52 PM PATHOLOGY DIAGNOSTIC STUDY REPORT: LOCAL TITLE: LR CYTOPATHOLOGY REPORT STANDARD TITLE: PATHOLOGY DIAGNOSTIC STUDY REPORT DATE OF NOTE: OCT 16, 2024@13:52:33 ENTRY DATE: OCT 16, 2024@13:52:33 AUTHOR: KRISTINE GREENE EXP COSIGNER: URGENCY: STATUS: COMPLETED $APHDR [facility] [employer] [facility] [CLIA# [id number]] [address] [place] [place] [phone] - - - - - - - [...] (Received Oct 06, 2024 14:54): CERVICAL CYTOLOGY [id number] - - - - - - - [...] - - PATHOLOGY REPORT Accession No. [id number] - - - - - - - [...] Results should be correlated with clinical information. CPT:[id number] HPV REPORT PERFORMED BY: [facility] [CLIA# [id number]] [address] [place] [phone] HPV DNA, HIGH RISK TEST HPV16 NEG Ref: HPV16 NEG HPV18 NEG Ref: HPV18 NEG HPV OTHER HIGH-RISK NEG Ref: OTHER HR HPV NEG Comment: HPV DNA PCR performed by [facility] henry HPV Test. This test detects the presence of DNA from HPV genotypes 16, 18, 31, 33, 35, 39, 45, 51, 52, 56, 58, 59, 66 and 68. Correlation with separate cytopathology report is required. /werner/ KRISTINE GREENE Signed Oct 16, 2024@13:52 Performing Laboratory: Cytology Report Performed By: [facility] [CLIA# [id number]] [address] [place] [address] $FTR - - - - - - [...] - - MUKESH DURBIN STANDARD FORM 515 ID:[id number] SEX:F :1990 AGE: 34 LOC:CWM/NO/PACT 5 PCP: Leta Vazquez /werner/ KRISTINE GREENE Signed: 10/16/2024 13:52 KRISTINE GREENE [facility]
--- OUTSIDE RECORDS SUMMARY | 2024-10-22 22:46 | XMS_ITS | Encounter Summary ---
Author Name [facility] [place] [facility] Address [address] [place] [address] Care Team Providers Care Boat Wrapper Name Role Phone FILOMENA SCOTT Primary Care [...] TRICA RE DODA* Jun 16, 2024 DODA [id number] Luis Carlos DURBIN PATIENT [facility] [address] T Jun 16, 2024 [id number] [phone] Luis Carlos DURBIN PATIENT Selected Encounter This section includes the information on record at [place] for the Encounter. Date/Time Encounter Type Encounter Description Reason Pro vider Source Jul 04, 2024 08:22 AM Outpatient Encounter ADMIN PAT ACTIVTIES (MASNONCT) IHE Encounter Template Text not used by [place] Plan of Treatment: Future Appointments (+ 6 months) and Future Tests (+/- 45 days) The Plan of Treatment section includes future care activities for the patient from all [place] treatmentfacilities. This section includes future appointments and future orders which are active, pending or scheduled. Future Appointments This section includes appointments that were scheduled to occur 6 months from the date of the Encounter, up to a maximum of 20 appointments. The data comes from all [place] treatment facilities. Appointment Date/Time Appointment Type Appointme nt Facility Name Jul 29, 2024 10:00 AM AMBULATORY - MEDICINE [facility] Jul 29, 2024 11:45 AM [facility] Aug 01, 2024 02:30 PM AMBULATORY - MEDICINE [facility] TRN [facility] Oct 06, 2024 10:00 AM AMBULATORY - MEDICINE [facility] Active, Pending, and Scheduled Orders This section includes a listing of several types of active, pending, and scheduled orders, including clinic medications orders, diagnostic test orders, procedure orders and consult orders; where the start date of the order is 45 days before the date of the Encounter or 45 days after the date of theEncounter. The data comes from all [place] treatment facilities. Test Date/Time Test Type Test Details Facility Name Jul 29, 2024 01:03 PM Consult Order [facility] Cons Electrician Office's Choice [facility] Lab Results: +/- 30 days of the encounter This section includes the Chemistry and Hematology Lab Results on record with [place] for the patient. Radiology Reports and Pathology Reports are provided separately, in subsequent sections. Lab Results This section contains the Chemistry/Hematology Results that were resulted 30 days before or 30 daysafter the date of the Encounter. Date/Time Source Result Type Result - Unit Interpretation Reference Range Comment Jul 29, 2024 11:38 AM [facility] T-SPOT TB PANEL Specimen Type: BLOOD [...] For additional information, please refer to http://education .questdiagnostic s.com/faq/HKB334 (This link is being provided for informational/ educational purposes only.) Test Performed by [facility], [facility], [address] [place] [address] Patel Tamez M.D., Ph.D., Director of Laboratories , CLIA [id number] TEST PERFORMED AT: , Ordering Provider: FILOMENA SCOTT Report Released Date/Time: Jul 29, 2024 10:55 AM Reporting Lab: [facility] [address] [facility] [address] Performing Lab: [facility] [address] [address] C-IHHL-RTVRLD (o) Negative Negative T-SPOT-PNLA 0 T-SPOT-PNLB 0 Y-UFZI-JFNGMR L Passed O-UOJG-CQCMOL L Passed Jul 29, 2024 11:38 AM [facility] MMRV (IGG) IMMUNE STATUS PANEL Specimen [...] Jul 29, 2024 10:55 AM Reporting Lab: [address] [address] Performing Lab: [facility] [address] [facility] [address] MEASLES (IGG) REACTIVE SEE COMMENT MUMPS (IGG) REACTIVE SEE COMMENT RUBELLA (IGG) REACTIVE SEE COMMENT VARICELLA (IGG) REACTIVE SEE COMMENT Jul 29, 2024 11:38 AM [facility] BASIC METABOLIC PANEL (non-fasting) Specimen Type: SERUM No comment entered. Ordering Provider: FILOMENA SCOTT Report Released Date/Time: Jul 29, 2024 10:39 AM Reporting Lab: [address] [place] [address] Performing Lab: [facility] [address] [facility] [address] UREA NITROGEN 12 mg/dL 7-25 GLUCOSE 94 mg/dL 65-100 SODIUM 141 mmol/L 135-145 POTASSIUM 4.0 mmol/L 3.5-5.0 CHLORIDE 106 mmol/L 100-110 CO2 26 meq/L 20-30 CREATININE, Serum 0.82 mg/dL 0.50-1.40 eGFR(CKD-EPI 2020) >90 mL/min >60 Jul 29, 2024 11:38 AM [facility] LIPID PANEL FASTING Specimen Type: SERUM No comment entered. Ordering Provider: FILOMENA SCOTT Report Released Date/Time: Jul 29, 2024 10:39 AM Reporting Lab: [address] [address] Performing Lab: [address] [address] CHOLESTEROL 159 mg/dL TRIGLYCERIDE 66 mg/dL 0-150 LDL calculated 89 mg/dL 0-129 CHOL/HDL 2.8 HDL CHOLESTEROL 57 mg/dL 40-60 Jul 29, 2024 11:38 AM [facility] LIVER FUNCTION Specimen Type: SERUM No comment entered. Ordering Provider: FILOMENA SCOTT Report Released Date/Time: Jul 29, 2024 10:39 AM Reporting Lab: [address] [address] Performing Lab: [address] [address] PROTEIN,TOTAL 6.9 g/dL 6.0-8.3 ALBUMIN 4.5 g/dL 3.5-5.0 ALKALINE PHOSPHATASE 82 U/L 40-150 AST 13 U/L 5-34 ALT 9 U/L BILIRUBIN, TOTAL 1.4 mg/dL H 0.2-1.2 BILIRUBIN, DIRECT 0.5 mg/dL 0-0.5 Jul 29, 2024 11:38 AM [facility] CBC AND DIFF (AUTO) Specimen Type: BLOOD No comment entered. Ordering Provider: FILOMENA SCOTT Report Released Date/Time: Jul 29, 2024 10:39 AM Reporting Lab: [facility] [address] [facility] [address] Performing Lab: [facility] [address] [facility] [address] WBC 4.06 10*3/uL L 4.50-11.00 RBC 3.93 [...] 10*3/uL 0.00-0.00 Jul 29, 2024 11:38 AM [facility] HEMOGLOBIN A1C PANEL Specimen Type: BLOOD [...] Jul 29, 2024 10:39 AM Reporting Lab: [address] [address] Performing Lab: [address] [address] HEMOGLOBIN A1C 4.9 4.0-5.6 Jul 29, 2024 11:38 AM [facility] TSH Specimen Type: SERUM No comment entered. Ordering Provider: FILOMENA SCOTT Report Released Date/Time: Jul 29, 2024 10:39 AM Reporting Lab: [address] [address] Performing Lab: [address] [address] TSH 0.80 u[IU]/mL 0.35-5.00 Jul 29, 2024 11:38 AM [facility] HEPATITIS C ANTIBODY (HCV)-ARC Specimen Type: SERUM Comment: Hep C Ab: No HCV antibody detected. If recent infection is suspected or other evidence suggests HCV infection, consider HCV nucleic acid testing Ordering Provider: FILOMENA SCOTT Report Released Date/Time: Jul 29, 2024 11:10 AM Reporting Lab: [address] [address] Performing Lab: [address] [address] HEPATITIS C ANTIBODY NON-REACTIVE NON-REACTI VE Radiology Reports: +/- 30 days of the [...] the Encounter. The data comes from all [facility] facilities. Date/Time Radiology Report Provider Source Jul 29, 2024 11:[address] MAXILLOFACIAL W/O CONT: YOHANAZIMUKESH KEYS [id number] -1990 F Exm Date: JUL 29, 2024@11:56 Req Phys: FILOMENA SCOTT Pat Loc: CWM/NO/PACT 5 (Req'g Loc) Img Loc: NHM/CT Service: Unknown Screen: Patient [place] [address] (Case 92 COMPLETE) CT MAXILLOFACIAL W/O CONT (CT Detailed) CPT:52426 Reason for Study: right jaw pain and zygomatic arch pain Clinical History: Post rugby injury last month with head on collision on right side of skull and cheek pain with opening jaw right side Report Status: Verified Date Reported: JUL 31, 2024 Date Verified: JUL 31, 2024 Marketing Project Coordinator E-Sig: Report: CT MAXILLOFACIAL W/O CONT right [...] tissue swelling. READING PHYSICIAN: Alen Guzman MD -[id number] 07/31/2024 7:21 [facility] National Teleradiology Program [phone] (For Medical Practitioner Use Only) Attention Patients / Veterans: If you have questions or concerns about these test results, please contact your ordering provider or primary care team. Primary Diagnostic Code: NO ALERT REQUIRED Primary Interpreting Staff: RADIOLOGY,OUTSIDE SERVICE, Staff Physician / RADIOLOGY,OUTSIDE SERVICE [facility] Jul 29, 2024 11:55 AM ANKLE 3 OR MORE VIEWS (RIGHT): MUKESH DURBIN [id number] -1990 F Exm Date: JUL 29, 2024@11:55 Req Phys: TYLER,FILOMENA CASPER Pat Loc: CWM/NO/PACT 5 (Req'g Loc) Img Loc: [facility] 1 Service: Unknown Screen: Patient answered no [facility] [place] [place] [address] (Case 91 COMPLETE) ANKLE 3 OR MORE VIEWS (RIGHT) (RAD Detailed) CPT:45704 Reason for Study: Right medial ankle pain Clinical History: Slammed case management assistant door on right ankle, mild ecchymosis also with small firm pea size tender nodule on medial right ankle just above malleolus Report Status: Verified Date Reported: JUL 29, 2024 Date Verified: JUL 29, 2024 Marketing Project Coordinator E-Sig:/ES/JEFFERY GARCIA JR Report: Study: AP, lateral [...] Primary Interpreting Staff: JEFFERY GARCIA JR, Radiologist (Marketing Project Coordinator) /EAJEFFERY CARMONA JR [facility] Jul 29, 2024 11:55 AM SHOULDER,COMPLETE(RIGHT): MUKESH DURBIN [id number] -1990 F Exm Date: JUL 29, 2024@11:55 Req Phys: TYLER,FILOMENA CASPER Pat Loc: CWM/NO/PACT 5 (Req'g Loc) Img Loc: [facility] 1 Service: Unknown Screen: Patient answered no [place] [address] (Case 90 COMPLETE) SHOULDER,COMPLETE(RIGHT) (RAD Detailed) CPT:50092 Reason for Study: Right shoulder pain Clinical History: Post rugby injury last month Report Status: Verified Date Reported: JUL 29, 2024 Date Verified: JUL 29, 2024 Marketing Project Coordinator E-Sig:/WERNER/JEFFERY GARCIA JR Report: Study: AP internally [...] Primary Interpreting Staff: JEFFERY GARCIA JR, Radiologist (Marketing Project Coordinator) /JEFFERY CASTILLO JR [facility] Encounter Notes: All associated encounter notes This section contains the clinical notes associated to the Encounter. Date/Time Encounter Note(s) Provider Source Jul 08, 2024 01:56 PM ADDENDUM: LOCAL TITLE: Addendum STANDARD TITLE: ADDENDUM DATE OF NOTE: JUL 08, 2024@13:56:30 ENTRY DATE: JUL 08, 2024@13:56:31 AUTHOR: WILMA LOCO COSIGNER: URGENCY: STATUS: COMPLETED Please call to establish care in no pact 5. /werner/ WILMA LOCO TOW TRUCK DISPATCHER SIMA Signed: 07/08/2024 13:57 Receipt Acknowledged By: 07/08/2024 14:09 /werner/ BE CHRISTIANSEN Advanced Ordering Box Operator === --- Original Document --- 07/04/24 CCC: SCHEDULING ADMINISTRATION: Patient Demographics Patient Name: MUKESH DURBIN Patient Primary Phone: [phone] Patient Primary Address: [address] [place] [address] [place] [address] Patient : 1990 Patient Age: 34 Call Back Number: [phone] Caller/Recipient Relation to Patient: Self Administrative Administrative Note Reason: Other Administrative Note Comments: Vet is calling to check the status of getting a PCP team assigned. 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 IMPORTANT: This note was created by [facility] Clinical Contact Center staff. Please do not alert the staff member by adding them as a signer for future communications. Alerts are not monitored by this user. /werner/ ARNOLDO PRESCOTT Signed: 07/04/2024 08:23 Receipt Acknowledged By: * AWAITING SIGNATURE * MILANA REYES 07/08/2024 13:56 /werner/ WILMA LOCO TOW TRUCK DISPATCHER [facility] 07/08/2024 ADDENDUM STATUS: COMPLETED Scheduled. /werner/ BE CHRISTIANSEN Advanced Ordering Box Operator Signed: 07/08/2024 14:08 WILMA LOCO [place] [facility] Jul 04, 2024 08:23 AM ADMINISTRATIVE NOTE: LOCAL TITLE: CCC: SCHEDULING ADMINISTRATION STANDARD TITLE: ADMINISTRATIVE NOTE DATE OF NOTE: JUL 04, 2024@08:23:02 ENTRY DATE: JUL 04, 2024@08:23:03 AUTHOR: ARNOLDO PRESCOTT EXP COSIGNER: URGENCY: STATUS: COMPLETED CCC: SCHEDULING ADMINISTRATION Has ADDENDA Patient Demographics Patient Name: MUKESH DURBIN Patient Primary Phone: [phone] Patient Primary Address: [place] [address] Patient : 1990 Patient Age: 34 Call Back Number: [phone] Caller/Recipient Relation to Patient: Self Administrative Administrative Note Reason: Other Administrative Note Comments: Vet is calling to check the status of getting a PCP team assigned. 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 IMPORTANT: This note was created by [facility] Clinical Contact Center staff. Please do not alert the staff member by adding them as a signer for future communications. Alerts are not monitored by this user. /werner/ ARNOLDO PRESCOTT Signed: 07/04/2024 08:23 Receipt Acknowledged By: 07/25/2024 17:50 /es/ MILANA REYES MSN Ed., BSN WINDOW FRAMER NURSE 07/08/2024 13:56 /werner/ WILMA LOCO TOW TRUCK DISPATCHER SIMA 07/08/2024 ADDENDUM STATUS: COMPLETED Please call to establish care in no pact 5. /werner/ WILMA LOCO TOW TRUCK DISPATCHER SIMA Signed: 07/08/2024 13:57 Receipt Acknowledged By: 07/08/2024 14:09 /werner/ BE CHRISTIANSEN Advanced Ordering Box Operator 07/08/2024 ADDENDUM STATUS: COMPLETED Scheduled. /werner/ BE CHRISTIANSEN Advanced Ordering Box Operator Signed: 07/08/2024 14:08 ARNOLDO PRESCOTT [facility]
--- OUTSIDE RECORDS SUMMARY | 2024-10-22 22:46 | XMS_ITS ---
Author Name [facility] ([place]) Organization [facility] of [facility] [place]) Address [address] [place] [address] Care Team Providers Care Meter Reader Chief Name Role Phone TAYLOR LETA Primary Care Provider Unavailshelley e Insurance Providers: [...] TRICA RE DODA* Jun 16, 2024 DODA [id number] Luis Carlos DURBIN PATIENT [facility] [address] T Jun 16, 2024 [id number] [phone] Luis Carlos DURBIN PATIENT Selected Encounter This section includes the information on record at [place] for the Encounter. Date/Time Encounter Type Encounter Description Reason Pro vider Source Jul 24, 2024 02:36 PM Outpatient Encounter TELEPHONE PRIMARY CARE IHE Encounter Template Text not used by [place] Plan of Treatment: Future Appointments (+ 6 months) and Future Tests (+/- 45 days) The Plan of Treatment section includes future care activities for the patient from all [place] treatmentfacilities. This section includes future appointments and future orders which are active, pending or scheduled. Future Appointments This section includes appointments that were scheduled to occur 6 months from the date of the Encounter, up to a maximum of 20 appointments. The data comes from all [place] treatment facilities. Appointment Date/Time Appointment Type Appointme nt Facility Name Jul 29, 2024 10:00 AM AMBULATORY - MEDICINE [facility] Jul 29, 2024 11:45 AM [facility] Aug 01, 2024 02:30 PM AMBULATORY - MEDICINE [facility] NTRL TRN [facility] Oct 06, 2024 10:00 AM AMBULATORY - [facility] Active, Pending, and Scheduled Orders This section includes a listing of several types of active, pending, and scheduled orders, including clinic medications orders, diagnostic test orders, procedure orders and consult orders; where the start date of the order is 45 days before the date of the Encounter or 45 days after the date of theEncounter. The data comes from all [place] treatment facilities. Test Date/Time Test Type Test Details Facility Name Jul 29, 2024 01:03 PM Consult Order [facility] Feeder Operator's Choice [facility] Lab Results: +/- 30 days of the encounter This section includes the Chemistry and Hematology Lab Results on record with [place] for the patient. Radiology Reports and Pathology Reports are provided separately, in subsequent sections. Lab Results This section contains the Chemistry/Hematology Results that were resulted 30 days before or 30 daysafter the date of the Encounter. Date/Time Source Result Type Result - Unit Interpretation Reference Range Comment Jul 29, 2024 11:38 AM [facility] T-SPOT TB PANEL Specimen Type: [...] For additional information, please refer to http://education .HutGrip/faq/RPL643 (This link is being provided for informational/ educational purposes only.) Test Performed by [facility], [address] [place] [address] Patel Tamez M.D., Ph.D., Director of Laboratories , CLIA [id number] TEST PERFORMED AT: , Ordering Provider: LETA SCOTT Report Released Date/Time: Jul 29, 2024 10:55 AM Reporting Lab: [facility] [address] [facility] [address] Performing Lab: [facility] [address] [place] [id number] M-MEOA-SOBWTX (o) Negative Negative T-SPOT-PNLA 0 T-SPOT-PNLB 0 U-HHNB-URZXWD L Passed Y-FXIE-VGTWCS L Passed Jul 29, 2024 11:38 AM [facility] MMRV (IGG) IMMUNE STATUS PANEL Specimen Type: SERUM Comment: A result of 'REACTIVE' indicates presence of IgG to Measles, Mumps, Rubella or Varicella following exposure to these viruses through either infection or vaccination. If quantitative index values are required for clinical interpretation, call Virology Reference lab during weekday business hours. Ordering Provider: LETA SCOTT Report Released Date/Time: Jul 29, 2024 10:55 AM Reporting Lab: [address] [address] Performing Lab: [address] [address] MEASLES (IGG) REACTIVE SEE COMMENT MUMPS (IGG) REACTIVE SEE COMMENT RUBELLA (IGG) REACTIVE SEE COMMENT VARICELLA (IGG) REACTIVE SEE COMMENT Jul 29, 2024 11:38 AM [facility] BASIC METABOLIC PANEL (non-fasting) Specimen Type: SERUM No comment entered. Ordering Provider: LETA SCOTT Report Released Date/Time: Jul 29, 2024 10:39 AM Reporting Lab: [address] [address] Performing Lab: [facility] [address] [facility] [address] UREA NITROGEN 12 mg/dL 7-25 GLUCOSE 94 mg/dL 65-100 SODIUM 141 mmol/L 135-145 POTASSIUM 4.0 mmol/L 3.5-5.0 CHLORIDE 106 mmol/L 100-110 CO2 26 meq/L 20-30 CREATININE, Serum 0.82 mg/dL 0.50-1.40 eGFR(CKD-EPI 2020) >90 mL/min >60 Jul 29, 2024 11:38 AM [facility] LIPID PANEL FASTING Specimen Type: SERUM No comment entered. Ordering Provider: LETA SCOTT Report Released Date/Time: Jul 29, 2024 10:39 AM Reporting Lab: [facility] [address] [facility] [address] Performing Lab: [address] [address] CHOLESTEROL 159 mg/dL TRIGLYCERIDE 66 mg/dL 0-150 LDL calculated 89 mg/dL 0-129 CHOL/HDL 2.8 HDL CHOLESTEROL 57 mg/dL 40-60 Jul 29, 2024 11:38 AM [facility] LIVER FUNCTION Specimen Type: SERUM No comment entered. Ordering Provider: LETA SCOTT Report Released Date/Time: Jul 29, 2024 10:39 AM Reporting Lab: [address] [address] Performing Lab: [address] [address] PROTEIN,TOTAL 6.9 g/dL 6.0-8.3 ALBUMIN 4.5 g/dL 3.5-5.0 ALKALINE PHOSPHATASE 82 U/L 40-150 AST 13 U/L 5-34 ALT 9 U/L BILIRUBIN, TOTAL 1.4 mg/dL H 0.2-1.2 BILIRUBIN, DIRECT 0.5 mg/dL 0-0.5 Jul 29, 2024 11:38 AM [facility] CBC AND DIFF (AUTO) Specimen Type: BLOOD No comment entered. Ordering Provider: LETA SCOTT Report Released Date/Time: Jul 29, 2024 10:39 AM Reporting Lab: [facility] [address] [facility] [address] Performing Lab: [facility] [address] [facility] [address] WBC 4.06 10*3/uL L 4.50-11.00 RBC 3.93 [...] 10*3/uL 0.00-0.00 Jul 29, 2024 11:38 AM [facility] HEMOGLOBIN A1C PANEL Specimen Type: BLOOD Comment: Values obtained from A1C measurements can vary. For atypical A1C assays, a reported value of 7.0 could actually be between 6.72 and 7.28 if measured by a reference method. A reported value of 9.0 could actually be between 8.73 and 9.27. Ref: http://www.ngsp. org/CAPdata.asp Ordering Provider: LETA SCOTT Report Released Date/Time: Jul 29, 2024 10:39 AM Reporting Lab: [facility] [address] [facility] [address] Performing Lab: [address] [address] HEMOGLOBIN A1C 4.9 4.0-5.6 Jul 29, 2024 11:38 AM [facility] TSH Specimen Type: SERUM No comment entered. Ordering Provider: LETA SCOTT Report Released Date/Time: Jul 29, 2024 10:39 AM Reporting Lab: [address] [address] Performing Lab: [address] [address] TSH 0.80 u[IU]/mL 0.35-5.00 Jul 29, 2024 11:38 AM [facility] HEPATITIS C ANTIBODY (HCV)-ARC Specimen Type: SERUM Comment: Hep C Ab: No HCV antibody detected. If recent infection is suspected or other evidence suggests HCV infection, consider HCV nucleic acid testing Ordering Provider: LETA SCOTT Report Released Date/Time: Jul 29, 2024 11:10 AM Reporting Lab: [address] [address] Performing Lab: [address] [address] HEPATITIS C ANTIBODY NON-REACTIVE NON-REACTI VE Social History: Smoking Status (Most current) and Tobacco Use (All prior to encounter date) This section includes the most current, and the historical, smoking and tobacco- related health factors from the [place] facility where the Encounter took place. Current Smoking Status This section includes the most current smoking, or tobacco-related health factor, from the [place] facility where the Encounter took place. Date/Time Current Smoking Status Comment Facil petros Jul 24, 2024 11:37 AM VA-TOBACCO NEVER USED [facility] Radiology Reports: +/- 30 days [...] the Encounter. The data comes from all [place] treatment facilities. Date/Time Radiology Report Provider Source Jul 29, 2024 11:[address] MAXILLOFACIAL W/O CONT: MUKESH DURBIN [id number] -1990 F Exm Date: JUL 29, 2024@11:56 Req Phys: LETA SCOTT Pat Loc: CWM/NO/PACT 5 (Req'g Loc) Img Loc: NHM/CT Service: Unknown Screen: Patient answered no [facility] [place] [address] (Case 92 COMPLETE) CT MAXILLOFACIAL W/O CONT (CT Detailed) CPT:54101 Reason for Study: right jaw pain and zygomatic arch pain Clinical History: Post rugby injury last month with head on collision on right side of skull and cheek pain with opening jaw right side Report Status: Verified Date Reported: JUL 31, 2024 Date Verified: JUL 31, 2024 Chain Maker Loom Control E-Sig: Report: CT MAXILLOFACIAL W/O CONT right [...] tissue swelling. READING PHYSICIAN: Alen Guzman MD -[id number] 07/31/2024 7:21 [facility] Exacterradiology Program [phone] (For Medical Practitioner Use Only) Attention Patients / Veterans: If you have questions or concerns about these test results, please contact your ordering provider or primary care team. 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, mild ecchymosis also with small firm pea size tender nodule on medial right ankle just above malleolus Report Status: Verified Date Reported: JUL 29, 2024 Date Verified: JUL 29, 2024 [employer] E-Sig:/ES/JEFFERY GARCIA JR Report: Study: AP, lateral [...] Primary Interpreting Staff: JEFFERY GARCIA JR, Radiologist (Chain Maker Loom Control) /JEFFERY CASTILLO JR [facility] Jul 29, 2024 11:55 AM SHOULDER,COMPLETE(RIGHT): MUKESH DURBIN [id number] -1990 F Exm Date: JUL 29, 2024@11:55 Req Phys: LETA SCOTT Pat Loc: CWM/NO/PACT 5 (Req'g Loc) Img Loc: [facility] 1 Service: Unknown Screen: [place] [address] (Case 90 COMPLETE) SHOULDER,COMPLETE(RIGHT) (RAD Detailed) CPT:83542 Reason for Study: Right shoulder pain Clinical History: Post rugby injury last month Report Status: Verified Date Reported: JUL 29, 2024 Date Verified: JUL 29, 2024 Chain Maker [employer]oom [employer] E-Sig:/ES/JEFFERY GARCIA JR Report: Study: AP internally [...] Primary Interpreting Staff: JEFFERY GARCIA JR, Radiologist (Chain Maker Loom Control) /JEFFERY CASTILLO JR [facility] Encounter Notes: All associated encounter notes This section contains the clinical notes associated to the Encounter. Date/Time Encounter Note(s) Provider Source Jul 24, 2024 02:42 PM MEDICATION MGT NOTE: LOCAL TITLE: MEDICATION RECONCILIATION STANDARD TITLE: MEDICATION MGT NOTE DATE OF NOTE: JUL 24, 2024@14:42 ENTRY DATE: JUL 24, 2024@14:42:40 AUTHOR: MILANA REYES COSIGNER: URGENCY: STATUS: COMPLETED Vet was given an appt with:JANE Zaman on 07/29/24@1000 = F: Medication reconciliation D: Vet says that he is on the following Medications: 1. Non-VA LEVONORGESTREL (MIRENA) INSERT,INTRAUTERINE 52MG 1 IMPLANT INTRAUTERINE Medication prescribed by Non-VA provider. Indication: FOR CONTROL === Gavino says that he has the following Medical Hx: 1. Traumatic dislocation of acromioclavicular joint- Dislocation of left acromioclavicular joint, greater than 200% displacement, initial encounter 2. ACL repair right knee- 2012 3. Right thumb surgery 2010- tendon severed === Gavino says that he has the following community Providers: 1. [facility] Date(s): 02/12/23 - 03/14/23 [facility] [address] [address]- 2. [facility] Emergency Department [address] [place] [phone] Demian Burnette MD [address] [place] [address] ==== Gavino says that he has allergies or adverse effects to the following Medications: 1. Gavino has No known Drug allergies /es/ MILANA REYES MSN Ed., BSN EPIDEMIOLOGIST NURSE Signed: 07/25/2024 17:46 Receipt Acknowledged By: 07/29/2024 12:38 /es/ DESTINY NEGRO Nurse Practitioner 08/04/2024 14:47 /es/ [facility] Women Veterans Program V Belt Inspector 07/28/2024 10:37 /es/ VIPUL MUNOZ, MSN, RN, CNL PRIMARY CARE TEAM NURSE 08/21/2024 10:28 /es/ ANDREY SEXTON, RN MSN REGISTERED NURSE MILANA REYES [place] [facility] [place] [facility] Jul 24, 2024 02:41 PM LETTERS: LOCAL TITLE: PATIENT LETTER (B) STANDARD TITLE: LETTERS DATE OF NOTE: JUL 24, 2024@14:41 ENTRY DATE: JUL 24, 2024@14:41:28 AUTHOR: MILANA REYES EXP COSIGNER: URGENCY: STATUS: COMPLETED [facility] [address] [place] [address] * [phone] * Date: 07/24/24 Dear : Mukesh Thank you for choosing the [facility] ([place]) [facility]. The Whole Health Program aims to support you in pursuing what matters most to you, and includes services that support your values and overall wellness. This includes the following offerings: * Yoga * Acupuncture * [place] Acupuncture for Acute Pain (offered weekly; drop-in or scheduled) * Individual health coaching * Machine Feeder * Biofeedback for Hypertension and Anxiety * Guided Imagery Group * Meditation Group * Cancer Support Group * Stress Management Group ( Stress Less ) The following require no referral from a provider, and can be initiated by you at any time: * Yoga * Meditation * [place] Acupuncture * Cancer Support Group * Individual Health Coaching * Stress Management Group ( Stress Less ) If interested in any of the above offerings, please reach out to the Whole Health Team at ext. [phone]. To schedule consult-required services, or if you would like more information regarding [place] health care benefits, please call toll free at [phone]), visit the [place] website at [email or web address], or contact your local [place] Medical Center. If you have any questions, please do not hesitate to contact the Department of 's Affairs call center. Sincerely. Dr. Marsha Perkins [facility] and Integrated Property Coordinator [facility] Direct MILANA REYES [place] [facility] [place] [facility] Jul 24, 2024 02:39 PM LETTERS: LOCAL TITLE: PATIENT LETTER (B) STANDARD TITLE: LETTERS DATE OF NOTE: JUL 24, 2024@14:39 ENTRY DATE: JUL 24, 2024@14:39:21 AUTHOR: MILANA REYES EXP COSIGNER: URGENCY: STATUS: [place] [address] * * Date: 07/25/24 Dear Katarina Lutz Thank you for choosing the [facility] ([place]) Medical [place]. Please be a few minutes early to this appt- about 15 mins. We would like to update your demographic information. To schedule or if you would like more information regarding [place] health care benefits, please call toll free at [phone]), visit the [place] website at [email or web address], or contact your local [place] Medical Center. Welcome to patient aligned care team (Pact Team 5) with (Leta DIXON, JANE). Prior to meeting you at your new patient appointment we are requesting some of your past medical history so that we may provide you with the exceptional care you deserve. Please note that it is very helpful to have these documents prior to your appointment date as the more information we have the better we will be able to meet your needs: * Last History & Physical * Immunization records * Medication list * Diagnosis list * Most recent labs * Diagnostic screens (Colonoscopy, Abdominal Aortic Aneurysm screen, Mammograms, PAPS, etc.) We have scheduled the following appt with you to see your new PCP: Your appt is scheduled for (07/29/24@1000)- This appt will be about an hour long appt which will give you and your Provider a chance to get to know each other. We have noticed that you are due to receive the following Immunizations: 1. Hep B Virus Vaccine-3 shot series 2. Covid 19 vaccine 3. Influenza Vaccine- after 07/27 You may either bring your records with you to your scheduled appointment, or drop them off ahead of your appointment or you may have them faxed to ATTN: ESTUARDO/NO/ASAM-1-Ufreycpo If you have any questions, please do not hesitate to contact the Department of 's Affairs call center at Ext [phone]. Just so that you know if you're feeling sick we have sick call hours at the [facility], and the [facility]- Sun thru Sunday 08-1530- first come first serve- walk-in basis. [facility] also has sick call hours Sun- Sun- 1100-12N, and 3P-4P- first come first serve basis- no appt needed. You can utilize our sick call system once you have seen the PCP for the first appt. Audiology Phone number- [phone] Ext [phone] Optometry Phone Number- [phone] Ext [phone] Mental Health Clinic- [phone] Ext- [phone] Eligibility/Enrollment- [phone] [phone] Veterans Rep [phone] Ext [phone] MILLIE Van [phone] [facility] Transportation [phone] Ext [phone], or,[phone] [place] [phone] ( Call within 72hrs of being seen in an acute care setting Sincerely. [facility] [address] [place] [address] Phone: Ext [phone] Upcoming Appointments: 07/29/24@1000- CWM/NO/PACT-5- Taylor Reyes MSN Ed., BSN, RN [facility] [address] [address] [place] [address] - Ext [phone] [facility] Outpatient [address] [place] [address] # [phone] [place] [address] MILANA REYES [place] [facility] [place] [facility] Jul 24, 2024 02:36 PM PREVENTIVE MEDICINE NURSING NOTE: LOCAL TITLE: CLINICAL REMINDERS/NURSING STANDARD TITLE: PREVENTIVE MEDICINE NURSING NOTE DATE OF NOTE: JUL 24, 2024@14:36 ENTRY DATE: JUL 24, 2024@14:36:11 AUTHOR: MILANA REYES EXP COSIGNER: URGENCY: STATUS: COMPLETED Advance Directive Screen AD: Patient does not have an Advance Directive completed and is requesting more information. The patient received education about Advance Directives and written notification of his/her rights. Vet was sent an advanced directive and was asked to fill out and bring in for PCP appt. Tdap Immunization: Td/Tdap given previously - written records available The patient has previously received the Tetanus, Diphtheria, Pertussis vaccine (Tdap). Documented: TDAP Historical Date Administered: Dec 01, 2016 Series: Series 1 Lot: [id number] Exp Date: Unknown Outside Location: Outside Healthcare Provider Admin Route/Site: INTRAMUSCULAR/RIGHT DELTOID Dosage: 0.5mL Information Source: FROM OTHER REGISTRY Comment: tetanus toxoid, reduced diphtheria toxoid, and acellular pertussis vaccine, adsorbed Documented: COVID-19 (JAEL), VECTOR-NR, RS-AD26, PF, 0.5 ML Historical Date Administered: Feb 18, 2021 Series: Series 1 Customer Success Associate: [employer] Lot: [id number] Exp Date: Unknown Outside Location: Outside Healthcare Provider Admin Route/Site: INTRAMUSCULAR/RIGHT DELTOID Dosage: 0.5mL Information Source: FROM OTHER REGISTRY Comment: SARS-COV-2 (COVID-19) vaccine, vector non-replicating, recombinant spike protein-Ad26, preservative free, 0.5 mL Documented: COVID-19 (JAEL), VECTOR-NR, RS-AD26, PF, 0.5 ML Historical Date Administered: Oct 24, 2021 Series: Series 2 Customer Success Associate: Easyaula Lot: [id number] Exp Date: Unknown Outside Location: Outside Healthcare Provider Admin Route/Site: INTRAMUSCULAR/LEFT DELTOID Information Source: FROM OTHER REGISTRY Comment: SARS-COV-2 (COVID-19) vaccine, vector non-replicating, recombinant spike protein-Ad26, preservative free, 0.5 mL Depression Screening: Perform PHQ-2 A PHQ-2 screen was performed. The score was 0 which is a negative screen for depression. Over the past two weeks, how often have you been bothered by the following problems? 1. Little interest or pleasure in doing things Not at all 2. Feeling down, depressed, or hopeless Not at all Suicide Screen: C-SSRS Screening [place] Suicide Severity Rating Scale (C-SSRS) screener 1. Over the past month, have you wished you were or wished you could go to sleep and not wake up? No 2. Over the past month, have you had any actual thoughts of killing yourself? No 3. Over the past month, have you been thinking about how you might do this? Response not required due to responses to other questions. 4. Over the past month, have you had these thoughts and had some intention of acting on them? Response not required due to responses to other questions. 5. Over the past month, have you started to work out or worked out the details of how to kill yourself? Response not required due to responses to other questions. 6. If yes, at any time in the past month did you intend to carry out this plan? Response not required due to responses to other questions. 7. In your lifetime, have you ever done anything, started to do anything, or prepared to do anything to end your life (for example, collected pills, obtained a gun, gave away valuables, went to the roof but didn't jump)? No 8. If YES, was this within the past 3 months? Response not required due to responses to other questions. MST Screening: Patient denies experiencing sexual trauma (MST). PTSD Screening: PC-PTSD-5 A PTSD screening test (PC-PTSD-5) was negative (score=0). IN THE PAST MONTH, have you ever had any experience that was so frightening, horrible or traumatic. For example: A serious accident or fire a physical or sexual assault or abuse An earthquake or flood A war Seeing someone be killed or seriously injured Having a loved one through homicide or suicide 1. Have you ever experienced this kind of event? NO 2. Had nightmares about the event(s) or thought about the event(s) when you did not want to? Response not required due to responses to other questions. 3. Tried hard not to think about the event(s) or went out of your way to avoid situations that reminded you of the event(s)? Response not required due to responses to other questions. 4. Been constantly on guard, watchful, or easily startled? Response not required due to responses to other questions. 5. Reading numb or detached from people, activities, or your surroundings? Response not required due to responses to other questions. 6. Reading guilty or unable to stop blaming yourself or others for the event(s) or any problems the event(s) may have caused? Response not required due to responses to other questions. TBI Screening: The [place] was not deployed in support of post-07/23 operations. Influenza Immunization: The patient has received the seasonal influenza vaccine for the current season at another location. Documented: INFLUENZA, UNSPECIFIED FORMULATION Historical Date Administered: Sep 2023 Exact date unknown Outside Location: Outside Healthcare Provider Information Source: FROM OTHER REGISTRY Comment: Lázaro marinelli/ MILANA REYES MSN Ed., BSN EPIDEMIOLOGIST NURSE Signed: 07/25/2024 17:47 MILANA REYES [facility]
--- OUTSIDE RECORDS SUMMARY | 2024-10-22 22:46 | XMS_ITS | Continuity of Care Document ---
Author Name DOD-AR Organization DOD-AR Care Team Providers Care Info Print Press Operator Name Role Phone DOD-AR Unavailable Unavailable Problems Combined list of problems from Department of Defense and Veterans [facility] facilities. It does not include entries that were removed or entered in error. 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, LONG Active 11/09/18 99 Condition [facility] Insertion of intrauterine contraceptive device done Active Condition Oct 06, 2024 Entered By: MARINE SCOTT Comment: inserted on 10/06/24 [facility] Obstructive sleep apnea syndrome Active Condition Jul 29, 2024 Entered By: MARINE SCOTT Comment: Diagnosed when stationed in [facility] 2023 Entered By: MARINE SCOTT Comment: never obtained CPAP [facility] Traumatic dislocation of acromioclavicular joint Active Condition [facility] Diagnosis: ICD-10-CM Z12.4 Encounter for screening for malignant neoplasm of cervix Active Diagnosis [facility] Diagnosis: ICD-10-CM Z71.89 Other specified counseling Active Diagnosis [facility] Diagnosis: ICD-10-CM G47.33 Obstructive sleep apnea (adult) (pediatric) Active Diagnosis [facility] Diagnosis: ICD-10-CM S43.132A Dislocation of l acromioclav jt, > 200% displacmnt, init Active Diagnosis [facility] Medications Combined list of outpatient medications from Department of Defense and Veterans Affairs facilities.Medications provided include 1) outpatient medications from the last 15 months, and 2) patient-reported medications. Medication Details Route Status Patient Instructions Prescription Expires Prescription Number Last Dispense Date Ordering Provider Order Date Order Qty Source AFLURIA QUAD 2018- (3YR UP) (influenza virus vaccine quadrivalen t (36 mos up)/PF), 60MCG/ AFLURIA QUAD (3YR UP) (influen za virus vaccine quadriva lent (36 mos up)/PF), 60MCG/ Start Date: 10/05/19 Stop Date: 10/16/23 Status: Disconti nued Discont inued 10/16/2023 No Facilit y Access FLUCELVAX QUAD (flu vaccine quad (4 years and older)cell derived/PF) , 60MCG/.5ML FLUCELVA X QUAD 1 (flu vaccine quad 1(4 years and older)ce ll derived/ PF), 60MCG/.5 ML Start Date: 08/23/20 Stop Date: 10/16/23 Status: Disconti nued Discont inued 10/16/2023 No Facilit y Access IBUPROFEN TAB TAKE BY MOUTH NEEDED ORAL ACTIVE [facility] LEVONORGEST REL 52MG INSERT SA, INTRAUTERIN E 1 IMPLANT INTRAUTE RINE INTRAU TERINE ACTIVE CAESAR CEDENO 2023 [facility] Allergies, Adverse Reactions, Alerts Combined list of allergies from Department of Defense and Veterans Affairs facilities. It does not include entries that were removed or entered in error. Substance Category Reaction Severity Reaction type Status Date Reported Comments Source No Known Allergies Drug allergy (disorder) active 12/01/[address] [facility] Immunizations Combined list of available immunizations from the Department of Defense and Veterans Affairs facilities. Immunization Series Date Given Administered By Site Reaction Lot Number CVX Code Drug Shelving Supervisor Status Comments Source COVID-19 (MODERNA), MRNA, LNP-S, PF, 50 MCG/0.5 ML (AGES 12+ YEARS) 2023 VIPUL MUNOZ LEFT DELTO ID [id number] complet ed [facility] INFLUENZA, SPLIT VIRUS, TRIVALENT, PF 2023 VIPUL MUNOZ LEFT DELTO ID [id number] 140 complet ed [facility] INFLUENZA, UNSPECIFIED FORMULATION 2022 88 complet ed [facility] Influenza, injectable, quadrivalent, preservative free 1 2021 THEA RUIZ R [id number] 150 [facility] ([facility]) complet ed Influenza , injectabl e, quadrival ent, preservat roxie free [facility] COVID-19 ([facility]), VECTOR-NR, [id number]-AD26, PF, 0.5 ML 2 2020 LEFT DELTO ID 212 complet ed SARS-COV- 2 (COVID-19 ) vaccine, vector non-repli cating, recombina nt spike protein-A d26, preservat roxie free, 0.5 mL Lot#: [id number] Mfr: [facility] SARS-COV-2 (COVID-19) vaccine, vector non-replicati ng, recombinant spike protein-Ad26, preservative free, 0.5 mL 2 2020 HIRAM VINCENT [id number] 212 [facility] ([facility]) complet ed SARS-COV- 2 (COVID-19 ) vaccine, vector non-repli cating, recombina nt spike protein-A d26, preservat roxie free, 0.5 mL DoD Influenza, injectable, quadrivalent, preservative free 1 2020 JANELLE YOO R [id number] 150 Seqirus (SEQ) complet ed Influenza , injectabl e, quadrival ent, preservat roxie free DoD COVID-19 ([facility]), VECTOR-NR, RS-AD26, PF, 0.5 ML 1 2020 RIGHT DELTO ID 212 complet ed SARS-COV- 2 (COVID-19 ) vaccine, vector non-repli cating, recombina nt spike protein-A d26, preservat roxie free, 0.5 mL Lot#: [id number] Mfr: [facility] SARS-COV-2 (COVID-19) vaccine, vector non-replicati ng, recombinant spike protein-Ad26, preservative free, 0.5 mL 1 2020 MATHIEU HARMON [id number] 212 [facility] (JSN) complet ed SARS-COV- 2 (COVID-19 ) vaccine, vector non-repli cating, recombina nt spike protein-A d26, preservat roxie free, 0.5 mL DoD Influenza, inj, MDCK, quadrivalent- pf 2019 171 complet ed Influenza , inj, MDCK, quadrival ent-pf 08/15/20 Given Ambulat ory Pharmac y Influenza, injectable, MDCK, preservative free, quadrivalent 2019 RUSSEL, () Not Given Influenza , injectabl e, MDCK, preservat roxie free, quadrival ent DoD Influenza, injectable, Madin Kami Canine Kidney, preservative free, quadrivalent 0 2019 171 (MVX) complet ed Influenza , injectabl e, Madin Tenstrike Canine Kidney, preservat roxie free, quadrival ent DoD Influenza, injectable, Madin Kami Canine Kidney, quadrivalent with preservative 0 2019 186 Seqirus (SEQ) comple t ed Influenza , injectabl e, Madin Tenstrike Canine Kidney, quadrival ent with preservat roxie DoD influenza, injectable, quadrivalent- pf 2018 Body, whole TRANSCR IBED 150 complet ed influenza , injectabl e, quadrival ent-pf 10/04/19 Given Ambulat ory Pharmac y influenza, injectable, quadrivalent- pf 2018 150 complet ed influenza , injectabl e, quadrival ent-pf 10/04/19 Given Ambulat ory Pharmac y influenza, injectable, quadrivalent, preservative free 2018 RUSSEL, () Not Given influenza , injectabl e, quadrival ent, preservat roxie free DoD Influenza, injectable, quadrivalent, preservative free 0 2018 150 (MVX) complet ed Influenza , injectabl e, quadrival ent, preservat roxie free DoD influenza, injectable, quadrivalent- pf 2017 UNK 150 complet ed influenza , injectabl e, quadrival ent-pf 09/09/18 Given Ambulat ory Pharmac y influenza virus vaccine, unspecified 2017 zzLef t Arm TRANSCR IBED 88 complet ed influenza virus vaccine, unspecifi ed 09/09/18 Given Ambulat ory Pharmac y influenza virus vaccine, unspecified formulation 1 2017 JASON KHAN 88 Transcribed (TRS) complet ed influenza virus vaccine, unspecifi ed formulati on DoD Influenza, injectable, quadrivalent, preservative free 0 2017 UNK 150 (TRN) complet ed Influenza , injectabl e, quadrival ent, preservat roxie free DoD measles and rubella virus vaccine 0 2016 04 () Not Given measles and rubella virus vaccine DoD hepatitis B vaccine, pediatric or pediatric/ado lescent dosage 0 2016 08 () Not Given hepatitis B vaccine, pediatric or pediatric /adolesce nt dosage DoD varicella virus vaccine 0 2016 21 () Not Given varicella virus vaccine DoD influenza virus vaccine, inactivated 2016 UNK 88 Seqirus complet ed influenza virus vaccine, inactivat ed 10/24/17 Given Ambulat ory Pharmac y Influenza, seasonal, injectable, preservative free 2016 RUSSEL, () Not Given Influenza , seasonal, injectabl e, preservat roxie free DoD Influenza, injectable, Madin Kami Canine Kidney, quadrivalent with preservative 0 2016 UNK 186 Seqirus (SEQ) comple t ed Influenza , injectabl e, Madin Tenstrike Canine Kidney, quadrival ent with preservat roxie DoD Human Papillomaviru s 9-valent vaccine 2016 zzLef t Arm [id number] 165 [employer] complet ed Human Papilloma virus 9-valent vaccine 07/30/17 Given Ambulat ory Pharmac y hepatitis A adult vaccine 2016 zzLef t Arm [id number] 52 GlaxoSmithKli ne complet ed hepatitis A adult vaccine 07/30/17 Given Ambulat ory Pharmac y HEP A, ADULT 2 2016 LEFT DELTO ID 52 complet ed hepatitis A vaccine, adult dosage Lot#: [id number] [facility] HPV9 2016 LEFT DELTO ID 165 complet ed Human Papilloma virus 9-valent vaccine Lot#: [id number] [facility] hepatitis A vaccine, adult dosage 2 2016 BHAVANA JARQUIN [id number] 52 [facility] complet ed hepatitis A vaccine, adult dosage DoD Human Papillomaviru s 9-valent vaccine 2 2016 BHAVANA JARQUIN [id number] 165 Merck (MSD) complet ed Human Papilloma virus 9-valent vaccine DoD Human Papillomaviru s 9-valent vaccine 2016 [id number] 165 Merck & Company Inc complet ed Human Papilloma virus 9-valent vaccine 03/26/17 Given Ambulat ory Pharmac y HPV9 2016 165 complet ed Human Papilloma virus 9-valent vaccine Lot#: [id number] [facility] Human Papillomaviru s 9-valent vaccine 1 2016 [id number] 165 Merck (MSD) complet ed Human Papilloma virus 9-valent vaccine DoD poliovirus vaccine, inactivated 2016 zzLef t Arm [id number] 10 sanofi pasteur complet ed polioviru s vaccine, inactivat ed 01/04/17 Given Ambulat ory Pharmac y IPV 2016 LEFT ARM 10 complet ed polioviru s vaccine, inactivat ed Lot#: [id number] Mfr: SANOFI PASTEUR [facility] poliovirus vaccine, inactivated 1 2016 RADHA BLOOM [id number] Sanofi Pasteur ([facility]) complet ed polioviru s vaccine, inactivat ed DoD measles and rubella virus vaccine 0 2016 04 () Not Given measles and rubella virus vaccine DoD hepatitis B vaccine, pediatric or pediatric/ado lescent dosage 0 2016 08 () Not Given hepatitis B vaccine, pediatric or pediatric /adolesce nt dosage DoD varicella virus vaccine 0 2016 21 () Not Given varicella virus vaccine DoD tuberculin purified protein derivative 2016 zzLef t Arm [id number] 96 sanofi pasteur complet ed Patient Tolerance : Negative Ambulat ory Pharmac y tuberculin skin test; purified protein derivative solution, intradermal 0 2016 KODI SANCHEZ [id number] 96 Sanofi Pasteur (PMC) complet ed tuberculi n skin test; purified protein derivativ e solution, intraderm al DoD adenovirus vaccine, live 2016 [id number] 143 Unknown complet ed adenoviru s vaccine, live 12/01/16 Given Ambulat ory Pharmac y tetanus, diphtheria, acellular pertu is 2016 zNabor Arm [id number] 115 Unknown complet ed tetanus, diphtheri a, acellular pertussis 12/01/16 Given Ambulat ory Pharmac y meningococcal A,C,Y,W-135 (MCV4P) 2016 zzLef t Arm [id number] 114 sanofi pasteur complet ed meningoco ccal A,C,Y,W-1 35 (MCV4P) 12/01/16 Given Ambulat ory Pharmac y influenza, seasonal, injectable-pf 2016 zzLef t Arm [id number] 140 Seqirus complet ed influenza , seasonal, injectabl e-pf 12/01/16 Given Ambulat ory Pharmac y hepatitis A adult vaccine 2016 zzLef t Arm [id number] 52 GlaxoSmithKli ne complet ed hepatitis A adult vaccine 12/01/16 Given Ambulat ory Pharmac y ADENOVIRUS TYPES 4 AND 7 1 2016 143 complet ed Adenoviru s, type 4 and type 7, live, oral Lot#: [id number] [facility] [employer]laCarN [employer] Book Farm[employer] [facility] HEP A, ADULT 1 2016 LEFT DELTO ID 52 complet ed hepatitis A vaccine, adult dosage Lot#: [id number] [facility]TRN [facility] [facility] MENINGOCOCCAL MCV4P 1 2016 LEFT DELTO ID 114 complet ed meningoco ccal polysacch aride (groups A, C, Y and W-135) diphtheri a toxoid conjugate vaccine (MCV4P) Lot#: [id number] Mfr: SANOFI PASTEUR [facility]laCarTRN [facility] [facility] TDAP 1 2016 RIGHT DELTO ID 115 complet ed tetanus toxoid, reduced diphtheri a toxoid, and acellular pertussis vaccine, adsorbed Lot#: [id number] [facility] BlaBlaCarTRN [employer] Book [facility]CHU [facility] hepatitis A vaccine, adult dosage 1 2016 JOSH YEE P [id number] SmithKline (SKB) complet ed hepatitis A vaccine, adult dosage DoD meningococcal polysaccharid e (groups A, C, Y and W-135) diphtheria toxoid conjugate vaccine (MCV4P) 1 2016 JOSH YEE P [id number] 114 Sanofi Pasteur (PMC) complet ed meningoco ccal polysacch aride (groups A, C, Y and W-135) diphtheri a toxoid conjugate vaccine (MCV4P) DoD tetanus toxoid, reduced diphtheria toxoid, and acellular pertu is vaccine, adsorbed 1 2016 JOSH YEE P [id number] 115 Other (OTH) complet ed tetanus toxoid, reduced diphtheri a toxoid, and acellular pertussis vaccine, adsorbed DoD Influenza, seasonal, injectable, preservative free 1 2016 JOSH YEE P [id number] 140 Seqirus (SEQ) complet ed Influenza , seasonal, injectabl e, preservat roxie free DoD Adenovirus, type 4 and type 7, live, oral 1 2016 JOSH YEE P [id number] 143 Other (OTH) complet ed Adenoviru s, type 4 and type 7, live, oral DoD HEP B, ADULT 3 1995 43 complet ed [facility] HEP B, ADULT 2 1994 43 complet ed [facility] [facility] HEP B, ADULT 1 1994 43 complet ed [facility] Results Combined list of recent chemistry, hematology and other laboratory results from Department of Defense and Veterans Affairs, ranging from 15 months to all on record, depending upon the facility. Order Name Results Value Reference Range Date Interpretation Specimen Comments Source HCG QUAL, URINE CHORIOGONA DOTROPIN.B ETA SUBUNIT ( TEST) [PRESENCE] IN URINE Negative 10/06 Specimen Type: URINE Comment: Test performd by Leta Scott NP. [facility] Ordering Provider: SURESH SCOTT SA Report Released Date/Time: Oct 06, 2024 11:28 AM Reporting Lab: [facility] [address] [address] Performing Lab: [facility] [place] [facility] [address] [address] [facility] BASIC METABOLI C PANEL (non-fas ting) UREA NITROGEN [MASS/VOLU ME] IN SERUM OR PLASMA 12 mg/dL 7 - 25 07/29 Specimen Type: SERUM No comment entered. Ordering Provider: SURESH SCOTT SA Report Released Date/Time: Jul 29, 2024 10:39 AM Reporting Lab: [facility] [place] [facility] [address] [address] Performing Lab: [facility] [address] [address] [facility] BASIC METABOLI C PANEL (non-fas ting) GLUCOSE [MASS/VOLU ME] IN SERUM OR PLASMA 94 mg/dL 65 - 100 07/29 Specimen Type: SERUM No comment entered. Ordering Provider: SURESH SCOTT SA Report Released Date/Time: Jul 29, 2024 10:39 AM Reporting Lab: [facility] [address] [address] Performing Lab: [facility] [address] [address] [facility] BASIC METABOLI C PANEL (non-fas ting) SODIUM [MOLES/VOL UME] IN SERUM OR PLASMA 141 mmol/L 135 - 145 07/29 Specimen Type: SERUM No comment entered. Ordering Provider: SURESH SCOTT SA Report Released Date/Time: Jul 29, 2024 10:39 AM Reporting Lab: [facility] [address] [address] Performing Lab: [facility] [address] [address] [facility] BASIC METABOLI C PANEL (non-fas ting) POTASSIUM [MOLES/VOL UME] IN SERUM OR PLASMA 4.0 mmol/L 3.5 - 5.0 07/29 Specimen Type: SERUM No comment entered. Ordering Provider: SURESH SCOTT SA Report Released Date/Time: Jul 29, 2024 10:39 AM Reporting Lab: [facility] [place] [facility] [address] [address] Performing Lab: [facility] [place] [facility] [address] [address] [facility] [place] [facility] BASIC METABOLI C PANEL (non-fas ting) CHLORIDE [MOLES/VOL UME] IN SERUM OR PLASMA 106 mmol/L 100 - 110 07/29 Specimen Type: SERUM No comment entered. Ordering Provider: SURESH SCOTT SA Report Released Date/Time: Jul 29, 2024 10:39 AM Reporting Lab: [facility] [place] [address] [address] Performing Lab: [facility] [place] [address] [address] [facility] [place] [facility] BASIC METABOLI C PANEL (non-fas ting) CARBON DIOXIDE, TOTAL [MOLES/VOL UME] IN SERUM OR PLASMA 26 meq/L 20 - 30 07/29 Specimen Type: SERUM No comment entered. Ordering Provider: SURESH SCOTT SA Report Released Date/Time: Jul 29, 2024 10:39 AM Reporting Lab: [facility] [place] [address] [address] Performing Lab: [facility] [place] [address] [address] [facility] [place] [facility] BASIC METABOLI C PANEL (non-fas ting) CREATININE [MASS/VOLU ME] IN SERUM OR PLASMA 0.82 mg/dL 0.50 - 1.40 07/29 Specimen Type: SERUM No comment entered. Ordering Provider: SURESH SCOTT SA Report Released Date/Time: Jul 29, 2024 10:39 AM Reporting Lab: [facility] [place] [address] [address] Performing Lab: [facility] [place] [address] [address] [facility] BASIC METABOLI C PANEL (non-fas ting) GLOMERULAR FILTRATION RATE/1.73 SQ M.PREDICTE D [VOLUME RATE/AREA] IN SERUM, PLASMA OR BLOOD BY CREATININE -BASED FORMULA (CKD-EPI 2020) >90mL/mi n 60 07/29 Specimen Type: SERUM No comment entered. Ordering Provider: SURESH SCOTT SA Report Released Date/Time: Jul 29, 2024 10:39 AM Reporting Lab: [facility] [place] [facility] [address] [address] Performing Lab: [facility] [place] [facility] [address] [address] [facility] CBC AND DIFF (AUTO) LEUKOCYTES [#/VOLUME] IN BLOOD BY AUTOMATED COUNT 4.06 10*3/uL 4.50 - 11.00 07/29 L Specimen Type: BLOOD No comment entered. Ordering Provider: SURESH SCOTT SA Report Released Date/Time: Jul 29, 2024 10:39 AM Reporting Lab: [facility] [place] [facility] [address] [address] Performing Lab: [facility] [address] [address] [facility] CBC AND DIFF (AUTO) ERYTHROCYT ES [#/VOLUME] IN BLOOD BY AUTOMATED COUNT 3.93 10*6/uL 3.93 - 5.16 07/29 Specimen Type: BLOOD No comment entered. Ordering Provider: SURESH SCOTT SA Report Released Date/Time: Jul 29, 2024 10:39 AM Reporting Lab: [facility] [place] [facility] [address] [address] Performing Lab: [facility] [address] [address] [facility] CBC AND DIFF (AUTO) HEMOGLOBIN [MASS/VOLU ME] IN BLOOD 12.8 g/dL 12 - 15.2 07/29 Specimen Type: BLOOD No comment entered. Ordering Provider: SURESH SCOTT SA Report Released Date/Time: Jul 29, 2024 10:39 AM Reporting Lab: [facility] [place] [facility] [address] [address] Performing Lab: [facility] [place] [facility] [address] [address] [facility] CBC AND DIFF (AUTO) HEMATOCRIT [VOLUME FRACTION] OF BLOOD BY AUTOMATED COUNT 36.4 36.6 - 45.6 07/29 L Specimen Type: BLOOD No comment entered. Ordering Provider: SURESH SCOTT SA Report Released Date/Time: Jul 29, 2024 10:39 AM Reporting Lab: [facility] [place] [facility] [address] [address] Performing Lab: [facility] [place] [facility] [address] [address] [facility] CBC AND DIFF (AUTO) MCV [ENTITIC VOLUME] BY AUTOMATED COUNT 92.6 fL 82 - 99 07/29 Specimen Type: BLOOD No comment entered. Ordering Provider: SURESH SCOTT SA Report Released Date/Time: Jul 29, 2024 10:39 AM Reporting Lab: [facility] [place] [facility] [address] [address] Performing Lab: [facility] [place] [facility] [address] [address] [facility] CBC AND DIFF (AUTO) MCHC [MASS/VOLU ME] BY AUTOMATED COUNT 35.2 g/dL 30.8 - 35.1 07/29 H Specimen Type: BLOOD No comment entered. Ordering Provider: SURESH SCOTT SA Report Released Date/Time: Jul 29, 2024 10:39 AM Reporting Lab: [facility] [place] [facility] [address] [address] Performing Lab: [facility] [place] [facility] [address] [address] [facility] CBC AND DIFF (AUTO) PLATELETS [#/VOLUME] IN BLOOD BY AUTOMATED COUNT 217 10*3/uL 140 - 360 07/29 Specimen Type: BLOOD No comment entered. Ordering Provider: SURESH SCOTT SA Report Released Date/Time: Jul 29, 2024 10:39 AM Reporting Lab: [facility] [place] [facility] [address] [address] Performing Lab: [facility] [place] [facility] [address] [address] [facility] [place] [facility] CBC AND DIFF (AUTO) ERYTHROCYT E DISTRIBUTI ON WIDTH [RATIO] BY AUTOMATED COUNT 11.4 12.0 - 16.0 07/29 L Specimen Type: BLOOD No comment entered. Ordering Provider: SURESH SCOTT SA Report Released Date/Time: Jul 29, 2024 10:39 AM Reporting Lab: [facility] [place] [facility] [address] [address] Performing Lab: [facility] [place] [address] [address] [facility] [place] [facility] CBC AND DIFF (AUTO) MONOCYTES [#/VOLUME] IN BLOOD BY AUTOMATED COUNT 0.34 10*3/uL 0.30 - 1.10 07/29 Specimen Type: BLOOD No comment entered. Ordering Provider: SURESH SCOTT SA Report Released Date/Time: Jul 29, 2024 10:39 AM Reporting Lab: [facility] [place] [facility] [address] [address] Performing Lab: [facility] [place] [facility] [address] [address] [facility] [place] [facility] CBC AND DIFF (AUTO) MCH [ENTITIC MASS] BY AUTOMATED COUNT 32.6 pg 26.2 - 32.6 07/29 Specimen Type: BLOOD No comment entered. Ordering Provider: SURESH SCOTT SA Report Released Date/Time: Jul 29, 2024 10:39 AM Reporting Lab: [facility] [place] [address] [address] Performing Lab: [facility] [place] [facility] [address] [address] [facility] [place] CBC AND DIFF (AUTO) NEUTROPHIL S/100 LEUKOCYTES IN BLOOD BY AUTOMATED COUNT 44.4 43.7 - 75.8 07/29 Specimen Type: BLOOD No comment entered. Ordering Provider: SURESH SCOTT SA Report Released Date/Time: Jul 29, 2024 10:39 AM Reporting Lab: [facility] [place] [facility] [address] [address] Performing Lab: [facility] [place] [facility] [address] [address] [facility] [place] CBC AND DIFF (AUTO) LYMPHOCYTE S/100 LEUKOCYTES IN BLOOD BY AUTOMATED COUNT 46.3 14.0 - 42.3 07/29 H Specimen Type: BLOOD No comment entered. Ordering Provider: SURESH SCOTT SA Report Released Date/Time: Jul 29, 2024 10:39 AM Reporting Lab: [facility] [address] [place] [address] Performing Lab: [facility] [address] [facility] [address] [facility] CBC AND DIFF (AUTO) MONOCYTES/ 100 LEUKOCYTES IN BLOOD BY AUTOMATED COUNT 8.4 5.1 - 13.7 07/29 Specimen Type: BLOOD No comment entered. Ordering Provider: SURESH SCOTT SA Report Released Date/Time: Jul 29, 2024 10:39 AM Reporting Lab: [facility] [address] [facility] [address] Performing Lab: [facility] [address] [facility] [address] [facility] CBC AND DIFF (AUTO) EOSINOPHIL S/100 LEUKOCYTES IN BLOOD BY AUTOMATED COUNT 0.5 0.4 - 6.8 07/29 Specimen Type: BLOOD No comment entered. Ordering Provider: SURESH SCOTT SA Report Released Date/Time: Jul 29, 2024 10:39 AM Reporting Lab: [facility] [address] [facility] [address] Performing Lab: [facility] [address] [facility] [address] [facility] CBC AND DIFF (AUTO) BASOPHILS/ 100 LEUKOCYTES IN BLOOD BY AUTOMATED COUNT 0.2 0.1 - 2.0 07/29 Specimen Type: BLOOD No comment entered. Ordering Provider: SURESH SCOTT SA Report Released Date/Time: Jul 29, 2024 10:39 AM Reporting Lab: [facility] [address] [facility] [address] Performing Lab: [facility] [address] [facility] [address] [facility] CBC AND DIFF (AUTO) NEUTROPHIL S [#/VOLUME] IN BLOOD BY AUTOMATED COUNT 1.80 10*3/uL 2.20 - 7.60 07/29 L Specimen Type: BLOOD No comment entered. Ordering Provider: SURESH SCOTT SA Report Released Date/Time: Jul 29, 2024 10:39 AM Reporting Lab: [facility] [address] [facility] [address] Performing Lab: [facility] [address] [facility] [address] [facility] CBC AND DIFF (AUTO) LYMPHOCYTE S [#/VOLUME] IN BLOOD BY AUTOMATED COUNT 1.88 10*3/uL 1.00 - 3.20 07/29 Specimen Type: BLOOD No comment entered. Ordering Provider: SURESH SCOTT SA Report Released Date/Time: Jul 29, 2024 10:39 AM Reporting Lab: [facility] [address] [facility] [address] Performing Lab: [facility] [address] [facility] [address] [facility] CBC AND DIFF (AUTO) EOSINOPHIL S [#/VOLUME] IN BLOOD BY AUTOMATED COUNT 0.02 10*3/uL 0.03 - 0.44 07/29 L Specimen Type: BLOOD No comment entered. Ordering Provider: SURESH SCOTT SA Report Released Date/Time: Jul 29, 2024 10:39 AM Reporting Lab: [facility] [address] [facility] [address] Performing Lab: [facility] [address] [facility] [address] [facility] CBC AND DIFF (AUTO) BASOPHILS [#/VOLUME] IN BLOOD BY AUTOMATED COUNT 0.01 10*3/uL 0.01 - 0.13 07/29 Specimen Type: BLOOD No comment entered. Ordering Provider: SURESH SCOTT SA Report Released Date/Time: Jul 29, 2024 10:39 AM Reporting Lab: [facility] [address] [facility] [address] Performing Lab: [facility] [address] [facility] [address] [facility] CBC AND DIFF (AUTO) IMMATURE GRANULOCYT ES/100 LEUKOCYTES IN BLOOD BY AUTOMATED COUNT 0.2 0.0 - 0.7 07/29 Specimen Type: BLOOD No comment entered. Ordering Provider: SURESH SCOTT SA Report Released Date/Time: Jul 29, 2024 10:39 AM Reporting Lab: [facility] [address] [facility] [address] Performing Lab: [facility] [address] [facility] [address] [facility] CBC AND DIFF (AUTO) IMMATURE GRANULOCYT ES [#/VOLUME] IN BLOOD 0.01 10*3/uL 0.00 - 0.06 07/29 Specimen Type: BLOOD No comment entered. Ordering Provider: SURESH SCOTT SA Report Released Date/Time: Jul 29, 2024 10:39 AM Reporting Lab: [facility] [address] [facility] [address] Performing Lab: [facility] [address] [facility] [address] [facility] CBC AND DIFF (AUTO) NRBC % 0.0 0.0 - 0.0 07/29 Specimen Type: BLOOD No comment entered. Ordering Provider: SURESH SCOTT SA Report Released Date/Time: Jul 29, 2024 10:39 AM Reporting Lab: [facility] [address] [facility] [address] Performing Lab: [facility] [address] [facility] [address] [facility] CBC AND DIFF (AUTO) NRBC, ABS 0.00 10*3/uL 0.00 - 0.00 07/29 Specimen Type: BLOOD No comment entered. Ordering Provider: SURESH SCOTT SA Report Released Date/Time: Jul 29, 2024 10:39 AM Reporting Lab: [facility] [address] [facility] [address] Performing Lab: [address] [address] [facility] HEMOGLOB IN A1C PANEL HEMOGLOBIN A1C/HEMOGL OBIN.TOTAL IN BLOOD BY HPLC 4.9 4.0 - 5.6 07/29 Specimen Type: BLOOD Comment: Values obtained from A1C measurement s can vary. For atypical A1C assays, a reported value of 7.0 could actually be between 6.72 and 7.28 if measured by a reference method. A reported value of 9.0 could actually be between 8.73 and 9.27. Ref: http://www. ngsp.org/[place] Pdata.asp Ordering Provider: SURESH SCOTT SA Report Released Date/Time: Jul 29, 2024 10:39 AM Reporting Lab: [facility] [address] [facility] [address] Performing Lab: [address] [address] [facility] HEPATITI S C ANTIBODY (HCV)-AR C HEPATITIS C VIRUS AB [PRESENCE] IN SERUM NON-REAC TIVE 07/29 Specimen Type: SERUM Comment: Hep C Ab: No HCV antibody detected. If recent infection is suspected or other evidence suggests HCV infection, consider HCV nucleic acid testing Ordering Provider: SURESH SCOTT SA Report Released Date/Time: Jul 29, 2024 11:10 AM Reporting Lab: [facility] [address] [facility] [address] Performing Lab: [facility] [address] [facility] [address] [facility] LIPID PANEL FASTING CHOLESTERO L [MASS/VOLU ME] IN SERUM OR PLASMA 159 mg/dL 07/29 Specimen Type: SERUM No comment entered. Ordering Provider: SURESH SCOTT SA Report Released Date/Time: Jul 29, 2024 10:39 AM Reporting Lab: [facility] [address] [facility] [address] Performing Lab: [facility] [address] [address] [facility] LIPID PANEL FASTING TRIGLYCERI DE [MASS/VOLU ME] IN SERUM OR PLASMA 66 mg/dL 0 - 150 07/29 Specimen Type: SERUM No comment entered. Ordering Provider: SURESH SCOTT SA Report Released Date/Time: Jul 29, 2024 10:39 AM Reporting Lab: [facility] [address] [facility] [address] Performing Lab: [facility] [address] [address] [facility] LIPID PANEL FASTING CHOLESTERO L IN LDL [MASS/VOLU ME] IN SERUM OR PLASMA BY CALCMAVIS N 89 mg/dL 0 - 129 07/29 Specimen Type: SERUM No comment entered. Ordering Provider: SURESH SCOTT SA Report Released Date/Time: Jul 29, 2024 10:39 AM Reporting Lab: [facility] [address] [facility] [address] Performing Lab: [facility] [address] [facility] [address] [facility] LIPID PANEL FASTING CHOLESTERO L.TOTAL/CH OLESTEROL IN HDL [MASS RATIO] IN SERUM OR PLASMA 2.8 07/29 Specimen Type: SERUM No comment entered. Ordering Provider: SURESH SCOTT SA Report Released Date/Time: Jul 29, 2024 10:39 AM Reporting Lab: [facility] [address] [facility] [address] Performing Lab: [facility] [address] [facility] [address] [facility] LIPID PANEL FASTING CHOLESTERO L IN HDL [MASS/VOLU ME] IN SERUM OR PLASMA 57 mg/dL 40 - 60 07/29 Specimen Type: SERUM No comment entered. Ordering Provider: SURESH SCOTT SA Report Released Date/Time: Jul 29, 2024 10:39 AM Reporting Lab: [facility] [address] [address] Performing Lab: [facility] [address] [address] [facility] LIVER FUNCTION PROTEIN [MASS/VOLU ME] IN SERUM OR PLASMA 6.9 g/dL 6.0 - 8.3 07/29 Specimen Type: SERUM No comment entered. Ordering Provider: SURESH SCOTT SA Report Released Date/Time: Jul 29, 2024 10:39 AM Reporting Lab: [facility] [address] [address] Performing Lab: [facility] [address] [address] [facility] LIVER FUNCTION ALBUMIN [MASS/VOLU ME] IN SERUM OR PLASMA 4.5 g/dL 3.5 - 5.0 07/29 Specimen Type: SERUM No comment entered. Ordering Provider: SURESH SCOTT SA Report Released Date/Time: Jul 29, 2024 10:39 AM Reporting Lab: [facility] [address] [address] Performing Lab: [facility] [address] [place] [address] [facility] LIVER FUNCTION ALKALINE PHOSPHATAS E [ENZYMATIC ACTIVITY/V OLUME] IN SERUM OR PLASMA 82 U/L 40 - 150 07/29 Specimen Type: SERUM No comment entered. Ordering Provider: SURESH SCOTT SA Report Released Date/Time: Jul 29, 2024 10:39 AM Reporting Lab: [facility] [address] [facility] [address] Performing Lab: [facility] [address] [facility] [address] [facility] LIVER FUNCTION ASPARTATE AMINOTRANS FERASE [ENZYMATIC ACTIVITY/V OLUME] IN SERUM OR PLASMA 13 U/L 5 - 34 07/29 Specimen Type: SERUM No comment entered. Ordering Provider: SURESH SCOTT SA Report Released Date/Time: Jul 29, 2024 10:39 AM Reporting Lab: [facility] [address] [facility] [address] Performing Lab: [facility] [address] [facility] [address] [facility] LIVER FUNCTION ALANINE AMINOTRANS FERASE [ENZYMATIC ACTIVITY/V OLUME] IN SERUM OR PLASMA 9 U/L 07/29 Specimen Type: SERUM No comment entered. Ordering Provider: SURESH SCOTT SA Report Released Date/Time: Jul 29, 2024 10:39 AM Reporting Lab: [facility] [address] [facility] [address] Performing Lab: [facility] [address] [facility] [address] [facility] LIVER FUNCTION BILIRUBIN. TOTAL [MASS/VOLU ME] IN SERUM OR PLASMA 1.4 mg/dL 0.2 - 1.2 07/29 H Specimen Type: SERUM No comment entered. Ordering Provider: SURESH SCOTT SA Report Released Date/Time: Jul 29, 2024 10:39 AM Reporting Lab: [facility] [address] [facility] [address] Performing Lab: [facility] [address] [facility] [address] [facility] LIVER FUNCTION BILIRUBIN. DIRECT [MASS/VOLU ME] IN SERUM OR PLASMA 0.5 mg/dL 0 - 0.5 07/29 Specimen Type: SERUM No comment entered. Ordering Provider: SURESH SCOTT SA Report Released Date/Time: Jul 29, 2024 10:39 AM Reporting Lab: [address] [address] Performing Lab: [address] [address] [facility] MMRV (IGG) IMMUNE STATUS PANEL MEASLES VIRUS IGG AB [PRESENCE] IN SERUM BY IMMUNOASSA Y REACTIVE 07/29 Specimen Type: SERUM Comment: A result of 'REACTIVE' indicates presence of IgG to Measles, Mumps, Rubella or Varicella following exposure to these viruses through either infection or vaccination . If quantitativ e index values are required for clinical interpretat ion, call Virology Reference lab during weekday business hours. Ordering Provider: SURESH SCOTT SA Report Released Date/Time: Jul 29, 2024 10:55 AM Reporting Lab: [address] [address] Performing Lab: [address] [address] [facility] MMRV (IGG) IMMUNE STATUS PANEL MUMPS VIRUS IGG AB [PRESENCE] IN SERUM BY IMMUNOASSA Y REACTIVE 07/29 Specimen Type: SERUM Comment: A result of 'REACTIVE' indicates presence of IgG to Measles, Mumps, Rubella or Varicella following exposure to these viruses through either infection or vaccination . If quantitativ e index values are required for clinical interpretat ion, call Virology Reference lab during weekday business hours. Ordering Provider: SURESH SCOTT SA Report Released Date/Time: Jul 29, 2024 10:55 AM Reporting Lab: [address] [address] Performing Lab: [address] [address] [facility] MMRV (IGG) IMMUNE STATUS PANEL RUBELLA VIRUS IGG AB [PRESENCE] IN SERUM OR PLASMA BY IMMUNOASSA Y REACTIVE 07/29 Specimen Type: SERUM Comment: A result of 'REACTIVE' indicates presence of IgG to Measles, Mumps, Rubella or Varicella following exposure to these viruses through either infection or vaccination . If quantitativ e index values are required for clinical interpretat ion, call Virology Reference lab during weekday business hours. Ordering Provider: SURESH SCOTT SA Report Released Date/Time: Jul 29, 2024 10:55 AM Reporting Lab: [address] [address] Performing Lab: [address] [address] [facility] MMRV (IGG) IMMUNE STATUS PANEL VARICELLA ZOSTER VIRUS IGG AB [PRESENCE] IN SERUM BY IMMUNOASSA Y REACTIVE 07/29 Specimen Type: SERUM Comment: A result of 'REACTIVE' indicates presence of IgG to Measles, Mumps, Rubella or Varicella following exposure to these viruses through either infection or vaccination . If quantitativ e index values are required for clinical interpretat ion, call Virology Reference lab during weekday business hours. Ordering Provider: SURESH SCOTT SA Report Released Date/Time: Jul 29, 2024 10:55 AM Reporting Lab: [address] [address] Performing Lab: [address] [address] [facility] T-SPOT TB PANEL MYCOBACTER IUM TUBERCULOS IS STIMULATED GAMMA INTERFERON [INTERPRET ATION] IN BLOOD QUALITATIV E Negative 07/29 Specimen Type: BLOOD Comment: A negative test result does not exclude the possibility of exposure to or infection with Mycobacteri um tuberculosi s (M. tuberculosi s). Patients with recent exposure to TB infected individuals exhibiting a negative T-SPOT.TB result should be considered for retesting within 6 weeks or if other relevant clinical symptoms indicate. Results from T-SPOT.TB testing must be used in conjunction with each individual' s epidemiolog ical history, current medical status, and results of other diagnostic evaluations . The T-SPOT.TB test is qualitative and results are reported as positive, borderline, or negative, given that the test controls perform as expected. In line with the Centers for Disease Control and Prevention' s 2010 recommendat ion to report quantitativ e measurement s alongside the qualitative result, the laboratory provides spot counts for information al purposes only. The T-SPOT.TB test should not be interpreted as a quantitativ e test. For additional information , please refer to http://educ ation.Jimmy Fairly .Student Designed/faq/FA Q215 (This link is being provided for information al/ educational purposes only.) Test Performed by [employer], [employer] [facility], [address] [place] [address] Patel Tamez M.D., Ph.D., Director of Laboratorie s , CLIA [id number] TEST PERFORMED AT: , Ordering Provider: SURESH SCOTT SA Report Released Date/Time: Jul 29, 2024 10:55 AM Reporting Lab: [facility] [address] [facility] [address] Performing Lab: [facility] [address] [address] [facility] T-SPOT TB PANEL MYCOBACTER IUM TUBERCULOS IS STIMULATED GAMMA INTERFERON ESAT-6 AG SPOT COUNT [#] IN BLOOD 0 07/29 Specimen Type: BLOOD Comment: A negative test result does not exclude the possibility of exposure to or infection with Mycobacteri um tuberculosi s (M. tuberculosi s). Patients with recent exposure to TB infected individuals exhibiting a negative T-SPOT.TB result should be considered for retesting within 6 weeks or if other relevant clinical symptoms indicate. Results from T-SPOT.TB testing must be used in conjunction with each individual' s epidemiolog ical history, current medical status, and results of other diagnostic evaluations . The T-SPOT.TB test is qualitative and results are reported as positive, borderline, or negative, given that the test controls perform as expected. In line with the Centers for Disease Control and Prevention' s 2010 recommendat ion to report quantitativ e measurement s alongside the qualitative result, the laboratory provides spot counts for information al purposes only. The T-SPOT.TB test should not be interpreted as a quantitativ e test. For additional information , please refer to http://educ ation.hc1.[employer]faq/FA Q215 (This link is being provided for information al/ educational purposes only.) Test Performed by [employer], [employer] [facility], [address] [place] [address] Patel Tamez M.D., Ph.D., Director of Laboratorie s , CLIA [id number] TEST PERFORMED AT: , Ordering Provider: SURESH SCOTT SA Report Released Date/Time: Jul 29, 2024 10:55 AM Reporting Lab: [facility] [address] [facility] [address] Performing Lab: [facility] [employer] [facility] [address] [address] [facility] T-SPOT TB PANEL MYCOBACTER IUM TUBERCULOS IS STIMULATED GAMMA INTERFERON CFP10 AG SPOT COUNT [#] IN BLOOD 0 07/29 Specimen Type: BLOOD Comment: A negative test result does not exclude the possibility of exposure to or infection with Mycobacteri um tuberculosi s (M. tuberculosi s). Patients with recent exposure to TB infected individuals exhibiting a negative T-SPOT.TB result should be considered for retesting within 6 weeks or if other relevant clinical symptoms indicate. Results from T-SPOT.TB testing must be used in conjunction with each individual' s epidemiolog ical history, current medical status, and results of other diagnostic evaluations . The T-SPOT.TB test is qualitative and results are reported as positive, borderline, or negative, given that the test controls perform as expected. In line with the Centers for Disease Control and Prevention' s 2010 recommendat ion to report quantitativ e measurement s alongside the qualitative result, the laboratory provides spot counts for information al purposes only. The T-SPOT.TB test should not be interpreted as a quantitativ e test. For additional information , please refer to http://[employer]/faq/FA Q215 (This link is being provided for information al/ educational purposes only.) Test Performed by [employer], [employer] [facility], [address] [place] [address] Patel Tamez M.D., Ph.D., Director of Laboratorie s , [place] [id number] TEST PERFORMED AT: , Ordering Provider: SURESH SCOTT SA Report Released Date/Time: Jul 29, 2024 10:55 AM Reporting Lab: [facility] [address] [facility] [address] Performing Lab: [facility] [address] [address] [facility] T-SPOT TB PANEL MITOGEN STIMULATED GAMMA INTERFERON POSITIVE CONTROL SPOT COUNT [#] IN BLOOD Passed 07/29 Specimen Type: BLOOD Comment: A negative test result does not exclude the possibility of exposure to or infection with Mycobacteri um tuberculosi s (M. tuberculosi s). Patients with recent exposure to TB infected individuals exhibiting a negative T-SPOT.TB result should be considered for retesting within 6 weeks or if other relevant clinical symptoms indicate. Results from T-SPOT.TB testing must be used in conjunction with each individual' s epidemiolog ical history, current medical status, and results of other diagnostic evaluations . The T-SPOT.TB test is qualitative and results are reported as positive, borderline, or negative, given that the test controls perform as expected. In line with the Centers for Disease Control and Prevention' s 2010 recommendat ion to report quantitativ e measurement s alongside the qualitative result, the laboratory provides spot counts for information al purposes only. The T-SPOT.TB test should not be interpreted as a quantitativ e test. For additional information , please refer to http://Yoop[employer] .Student Designed/faq/FA Q215 (This link is being provided for information al/ educational purposes only.) Test Performed by [employer] [address] [place], [place] Patel Tamez M.D., Ph.D., Director of Laboratorie s , CLIA [id number] TEST PERFORMED AT: , Ordering Provider: SURESH SCOTT SA Report Released Date/Time: Jul 29, 2024 10:55 AM Reporting Lab: [facility] [employer] [facility] [address] [facility] [address] Performing Lab: [facility] [address] [address] [facility] T-SPOT TB PANEL GAMMA INTERFERON NEGATIVE CONTROL SPOT COUNT [#] IN BLOOD Passed 07/29 Specimen Type: BLOOD Comment: A negative test result does not exclude the possibility of exposure to or infection with Mycobacteri um tuberculosi s (M. tuberculosi s). Patients with recent exposure to TB infected individuals exhibiting a negative T-SPOT.TB result should be considered for retesting within 6 weeks or if other relevant clinical symptoms indicate. Results from T-SPOT.TB testing must be used in conjunction with each individual' s epidemiolog ical history, current medical status, and results of other diagnostic evaluations . The T-SPOT.TB test is qualitative and results are reported as positive, borderline, or negative, given that the test controls perform as expected. In line with the Centers for Disease Control and Prevention' s 2010 recommendat ion to report quantitativ e measurement s alongside the qualitative result, the laboratory provides spot counts for information al purposes only. The T-SPOT.TB test should not be interpreted as a quantitativ e test. For additional information , please refer to http://educ ation.Jimmy Fairly .Student Designed/faq/FA Q218 (This link is being provided for information al/ educational purposes only.) Test Performed by [employer], [address] [place], [place] Patel Tamez M.D., Ph.D., Director of Laboratorie s , CLIA [id number] TEST PERFORMED AT: , Ordering Provider: SURESH SCOTT SA Report Released Date/Time: Jul 29, 2024 10:55 AM Reporting Lab: [facility] [address] [facility] [address] Performing Lab: [facility] [address] [address] [facility] TSH THYROTROPI N [UNITS/VOL UME] IN SERUM OR PLASMA 0.80 u[IU]/mL 0.35 - 5.00 07/29 Specimen Type: SERUM No comment entered. Ordering Provider: SURESH SCOTT SA Report Released Date/Time: Jul 29, 2024 10:39 AM Reporting Lab: [facility] [address] [facility] [address] Performing Lab: [facility] [address] [address] [facility] Infectio us Disease HIV-1/O/2 Non-Reac tive 1 (04/12/24 2:36 PM) 04/12 N Interpretiv e Data: INTERPRETAT ION: This method is a screening procedure for the detection of HIV p24 Antigen and Antibodies to HIV-1, including Group O, and/or HIV-2. NON-REACTIV E: HIV-1 antigen and HIV-1 / HIV-2 antibodies were not detected. No laboratory evidence of HIV infection. A negative test result does not exclude the possibility of exposure to or infection with HIV. HIV antibodies and/or p24 antigen may be undetectabl e in some stages of the infection and in some clinical conditions. If acute HIV infection is suspected, consider submitting another specimen to a reference laboratory for HIV-1 RNA. SCREEN REACTIVE - CONFIRMATIO N TO FOLLOW: Possible presence of HIV-1antibo dies, HIV-2 antibodies and/or HIV-1 p24 antigen. Specimen will reflex to the confirmatio n testing that fulfills the Center for Disease Control and Prevention' s HIV diagnostic algorithm. Refer to [facility] Lab Guide for additional information : [email or web address]/ [email or web address] x Testing performed by [facility] Donnie [facility]wood Sendouts Repository Sample Received (04/12/24 2:36 PM) 04/12 N [facility] Vital Signs Combined list of inpatient and outpatient Vital Signs from Department of Defense and Veterans Affairs, ranging from 12 months to all on record, depending upon the facility. Vital Sign Value Date Comments Source SYSTOLIC BLOOD PRESSURE 105 10/06/20 24 10:19:31 [facility] DIASTOLIC BLOOD PRESSURE 69 024 10:19:31 [facility] PULSE OXIMETRY 99 10/06/2024 10:19:31 [facility] WEIGHT 150 10/06/2024 10:19:31 [facility] BMI 24kg/m2 10/06/2024 10:19:31 [facility] PAIN 0 10/06/2024 10:19:31 [facility] TEMPERATURE 97.9 10/06/2024 10:19:31 [facility] PULSE 71 10/06/2024 10:19:31 [facility] RESPIRATION 18 10/06/2024 10:19:31 [facility] SYSTOLIC BLOOD PRESSURE 108 07/29/20 24 10:11:34 [facility] DIASTOLIC BLOOD PRESSURE 68 024 10:11:34 [facility] PULSE OXIMETRY 98 07/29/2024 10:11:34 [facility] WEIGHT 149.8 07/29/2024 10:11:34 [facility] BMI 24kg/m2 07/29/2024 10:11:34 [facility] HEIGHT 66 07/29/2024 10:11:34 [facility] TEMPERATURE 97.9 07/29/2024 10:11:34 [facility] PULSE 77 07/29/2024 10:11:34 [facility] RESPIRATION 14 07/29/2024 10:11:34 [facility] No data available for this section Ambulatory Pharm acy Encounters Combined list of: 1) Encounters from Department of Veterans Affairs facilities going back up to thelast 18 months. 2) Encounters from the Department of Defense facilities going back up to 280 months. Location Location Details Encounter Type Encounter Number Reason For Visit Attending Provider ADM Date DC Date Status Disposition Source [facility](Au diology [facility] 1523) OUTPATIENT [id number] PILY ARIZA 11/30 Released w/o Limitations [facility]( Audiolo gy [facility] 1523) [facility](Op tometry [facility] 1523) OUTPATIENT [id number] SORIN HAIRSTON 11/30 Released w/o Limitations [facility]( Optomet ry HC 1523) [facility](Fe male Screening 1523) OUTPATIENT [id number] [facility] CALI ANA LUISA 12/01 Released w/o Limitations [facility]( Female Screeni ng 1523) [facility] Female) OUTPATIENT [id number] ASHLEY PUGA 12/01 Released w/o Limitations [facility]( [facility] Female) [facility](Im munizatio n 1523) OUTPATIENT [id number] Notes Entered by: Stacy YEE 01 Dec 2016 1224 ------- ------- ------- ------- -- P4 Immuniz ations ALFREDO PRATT 12/01 Released w/o Limitations [facility]( Immuniz ation 1523) [facility](Pr ev Med Immunizat ions/237) OUTPATIENT [id number] Notes Entered by: Daren SANCHEZ 07 Dec 2016 1021 ------- ------- ------- ------- -- TST PPD TB Testing MARTIN TAVERAS 12/07 Released w/o Limitations [facility]( Prev Med Immuniz ations/ 237) [facility](Sp ecial Physicals [facility] 1007) OUTPATIENT [id number] dive 091 ELY ART 12/08 Released w/o Limitations [facility]( Special Physica ls [facility] 1007) [facility] [place](Sp ecial Physicals [facility] 1007) OUTPATIENT [id number] LIDYALAURA 12/21 Released w/o Limitations [facility] [place]( Special Physica ls [facility] 1007) [facility](Co urage (White) 1007) OUTPATIENT [id number] COLD ELIZABETH STEVENS P 01/02 Sick at Home/Quarter s [facility]( Courage (White) 1007) [facility](Me d. Assessmen t/1523) OUTPATIENT [id number] Notes Entered by: GARCÍA HOLGUIN 04 Jan 2017 0816 ------- ------- ------- ------- -- 5-2 screeni ng DIV 091 ALFREDO PRATT 01/04 Released w/o Limitations [facility]( Med. Assessm ent/152 3) [facility](Co urage (White) 1007) OUTPATIENT [id number] f/u Cold-li ke sx ELIZABETH PARSON P 01/04 Released w/o Limitations [facility] [place]( Courage (White) 1007) [place] [address](Critical access hospital) OUTPATIENT [id number] Notes Entered by: SHERMAN MORALES 22 Mar 2017 0835 ------- ------- ------- ------- -- women's health issues; no disclos ure ZHANG, WESLEY 03/22 Released w/o Limitations [facility] [place] [address]([facility] [place]) [facility]) OUTPATIENT [id number] RASH ON BOTH ANKLES X2 MONTHS BRANNON MCKEON 07/26 Released w/o Limitations [facility]) [facility] Tm 1) OUTPATIENT [id number] Notes Entered by: TEJINDER JARQUIN 30 Jul 2017 0747 ------- ------- ------- ------- -- HPV/HEP A #2 BHAVANA JARQUIN 07/30 Released w/o Limitations [facility](N [facility] Imms [facility] Tm 1) [facility]) OUTPATIENT [id number] NECK PAIN [id number] // JAIDEN DONIS 12/07 Released w/o Limitations [facility](N [facility] Fam Med [facility] Tm 1) [facility]) OUTPATIENT [id number] NECK PAIN, RECURRI NG JAIDEN DONIS 12/17 Released w/o Limitations [facility] Fam [facility] Tm 1) [facility]) OUTPATIENT [id number] Notes Entered by: MARAL ALTMAN 18 Dec 2017 0745 ------- ------- ------- ------- -- VINNY Chau 12/18 Released w/o Limitations [facility] HC Program ) [facility] Fam Med [facility] Tm 1) TELE CONSULT [id number] Notes Entered by: ERNESTO MUÑOZ I 18 Dec 2017 1051 ------- ------- ------- ------- -- SIQ CHIT NECK PAIN REQUEST JAIDEN DONIS 12/18 [facility] Fam Med [facility] Tm 1) [facility] Fam [facility] Tm 1) OUTPATIENT [id number] request ing light duty chit for her neck pain [phone] SHANTA CONNELLY 12/26 Released with Work/Duty Limitations [facility] Fam Med [facility] Tm 1) [facility]) OUTPATIENT [id number] neck BATSHEVA OLIVEIRA 01/03 Released w/o Limitations [facility] Phys[facility] ) [facility]) OUTPATIENT [id number] LAINA HUTCHISON 01/10 Released w/o Limitations [facility] Phys[facility] ) [facility]) TELE CONSULT [id number] Notes Entered by: TONIE GOLDSMITH 11 Jan 2018 1457 ------- ------- ------- ------- -- epha ANTONETTE Mchugh 01/11 Referred for Appointment [facility]) [facility] Tm 1) OUTPATIENT [id number] [facility] KELLY PRINCE 01/14 Released w/o Limitations [facility] Fam Med [facility] Tm 1) [facility]) OUTPATIENT [id number] NAN CABA 01/15 Released w/o Limitations [facility] Phys[facility] ) [facility] ) OUTPATIENT [id number] GENTRY NAIDU 01/16 Sick at Home/Quarter s [facility] [place] Optomet ry) [facility]) TELE CONSULT [id number] Notes Entered by: KELLY PRINCE 16 Jan 2018 1322 ------- ------- ------- ------- -- BOONE Peace 01/16 Referred for Appointment [facility] Primary [facility]) [facility] Fam Med [facility] Tm 1) OUTPATIENT [id number] SHOLA BARRETT PHY [phone] PRINCE KELLY P 01/21 Released w/o Limitations [facility] Fam Med [facility] Tm 1) [facility]) OUTPATIENT [id number] ANDREW KAN 01/22 Released w/o Limitations [facility] Physica [facility] Therapy ) [facility] Fam Med [facility] Tm 1) OUTPATIENT [id number] STIFF NECK BEKA HECTOR 01/23 Released w/o Limitations [facility] Fam Med [facility] Tm 1) [facility]) OUTPATIENT [id number] DAILY BETHEA V 01/29 Released with Work/Duty Limitations [facility] Phys[facility] Therapy ) [facility]) OUTPATIENT [id number] f/u Rita, neck BATSHEVA OLIVEIRA 02/05 Released w/o Limitations [facility] Phys[facility] ) [facility] Med Readiness CLN) OUTPATIENT [id number] ePHA/MH A VIA FACE TO FACE BRANNON MCKEON 02/18 Released w/o Limitations [facility](N [facility] Med Readine ss CLN) [facility]) OUTPATIENT [id number] f/u neck BATSHEVA OLIVEIRA 03/20 Released w/o Limitations [facility] Physica [facility] Therapy ) [facility] Fam Med [facility] Tm 1) OUTPATIENT [id number] Notes Entered by: ALEXA CHRISTINA 20 Mar 2018 1343 ------- ------- ------- ------- -- Ba CASANOVA JAIDEN DONIS 03/20 Released w/o Limitations [facility] Tm 1) [facility] 1) OUTPATIENT [id number] CONSULT SPEC//Ara LUND// // ALHAJI VILLEGAS 04/04 Released w/o Limitations [facility] Tm 1) [facility] Physical Therapy) OUTPATIENT [id number] f/u L shoulde r, MRI results BATSHEVA OLIVEIRA 04/22 Released w/o Limitations [facility] Physica l Therapy ) [facility] 1) OUTPATIENT [id number] BILATER IAL FEET PX JAIDEN DONIS 06/10 Released w/o Limitations [facility] Tm 1) [facility] 1) TELE CONSULT [id number] Notes Entered by: ERNESTO MUÑOZ I 09 Jul 2018 1143 ------- ------- ------- ------- -- EDF//Jun//L HAND AND L THUMB LAC//LESLI THORNTON // CHANG MUÑOZ 07/09 Referred for Appointment [facility] Tm 1) [facility]) OUTPATIENT [id number] Notes Entered by: Ba PAL 16 Jul 2018 1531 ------- ------- ------- ------- -- Left Fingers LUDY Browne 07/16 Released with Work/Duty Limitations [facility]) [facility] Ortho Foot/Ankl e) OUTPATIENT [id number] Pain in unspeci fied foot IVANIA WYMAN 07/29 Released w/o Limitations [facility](S D Ortho Foot/An kle) [facility] Fam Med [facility] Tm 1) TELE CONSULT [id number] Notes Entered by: ERNESTO MUÑOZ I 10 Sep 2018 0854 ------- ------- ------- ------- -- EDF//Aug//[facility]//LESLI THORNTON // CHANG MUÑOZ 09/10 Released w/o Limitations [facility] Fam Med [facility] Tm 1) [facility] Fam Med [facility] Tm 1) OUTPATIENT [id number] SHOULDE R L PAIN A MONTH JAIDEN DONIS 09/11 Released w/o Limitations [facility] Fam Med [facility] Tm 1) [facility] Med Readiness CLN) TELE CONSULT [id number] Notes Entered by: TONIE GOLDSMITH 23 Jan 2019 1042 ------- ------- ------- ------- -- Epha review HARRY THOMPSON 01/23 Referred for Appointment [facility] Med Readine ss CLN) [facility] Readiness CLN) OUTPATIENT [id number] Notes Entered by: MELISSA CHÁVEZ 13 Feb 2019 0711 ------- ------- ------- ------- -- EPHA/MH A VIA FACE TO FACE DEV DORAN([facility]) 02/13 Released w/o Limitations [facility] Med Readine ss CLN) [facility]) OUTPATIENT [id number] Notes Entered by: ROSELIA NANCE 13 Feb 2019 0753 ------- ------- ------- ------- -- BI-LAT EAR PAIN X3 WEEKS// [phone] SHAKIRA BONILLA 02/13 Released w/o Limitations [facility](N aval [facility] Primary Care) [facility] HC [facility]) OUTPATIENT [id number] Notes Entered by: HENRI HUNTER 17 Feb 2019 0625 ------- ------- ------- ------- -- Annual HCP audiogr am SHIRA HUNTER 02/17 Released w/o Limitations [facility] HC Program ) [facility] Fam Med [facility] Tm 1) OUTPATIENT [id number] lt shoulde r pain request ing referra l to Orth JAIDEN DONIS 03/11 Released w/o Limitations [facility]( [facility] Fam Med [facility] Tm 1) [facility] Smart Sports Med) OUTPATIENT [id number] L Shoulde r NADINE OLIVAS 03/20 Released with Work/Duty Limitations [facility]( [facility] Smart Sports Med) [facility]([place] [facility] Tm) OUTPATIENT [id number] Bursiti s of left shoulde r JULIETTE CHANEY 04/25 Released w/o Limitations [facility](S D Ortho Surgica l Sports Tm) [facility]) OUTPATIENT [id number] B/L YANNI NBSD FORCE PROTECT ION AD JORGE LUIS HARMAN E 04/29 Released w/o Limitations [facility]) [facility]) OUTPATIENT [id number] P2 B/L YANNI NBSD FORCE PROTECT ION/AD HARPER GOMEZ E 05/05 Released w/o Limitations [facility]) [facility]([place] [facility] Tm) OUTPATIENT [id number] Re: Dr. Ronnie bates F/U MRI Left Shoulde r ALTA BRADFORD 06/24 Released w/o Limitations [facility](S D Ortho Surgica l Sports Tm) [facility] Fam Med [facility] Tm 1) OUTPATIENT [id number] LEFT SHOULDE R PAIN X 1 YEAR//4 [phone] NIGEL DOTSON 06/25 Released w/o Limitations [facility](N [facility] Fam Med [facility] Tm 1) [facility] Sports Tm) OUTPATIENT [id number] PREOP [id number] ltsh dxax,sa d,open DCE ALTA BRADFORD A 07/24 Released w/o Limitations [facility](S D Ortho Surgica l Sports Tm) [facility] Sports Tm) OUTPATIENT [id number] POP#1 [id number] ltsh dxax,sa d,open DCE ALTA BRADFORD A 08/06 Released with Work/Duty Limitations [facility](S D Ortho Surgica l Sports Tm) [facility]) OUTPATIENT [id number] post-op , L shouldjamie r, DOS:23S ep19 ARVIND HERNANDEZ 08/11 Released w/o Limitations [facility] Phys[facility] Therapy ) [facility]) OUTPATIENT [id number] JULIÁN PULIDO 08/13 Released w/o Limitations [facility] Phys[facility] ) [facility]) OUTPATIENT [id number] ANDREW KAN 08/15 Released w/o Limitations [facility] Phys[facility] ) [facility]) OUTPATIENT [id number] TERESE JOHNSON 08/19 Released w/o Limitations [facility] Phys[facility] ) [facility]) OUTPATIENT [id number] DAILY BETHEA V 08/21 Released with Work/Duty Limitations [facility] Phys[facility] ) [facility]) OUTPATIENT [id number] 7 TERESE JOHNSON 08/26 Released w/o Limitations [facility] Physica [facility] Therapy ) [facility]) OUTPATIENT [id number] AB CADENA I 08/28 Released w/o Limitations [facility] Phys[facility] ) [facility]) OUTPATIENT [id number] TERESE JOHNSON 09/02 Released w/o Limitations [facility] Phys[facility] ) [facility]) OUTPATIENT [id number] f/u L ARVIND Curtis 09/05 Released w/o Limitations [facility] Physica l Therapy ) [facility] Fam Med [facility] Tm 1) OUTPATIENT [id number] Notes Entered by: TONIE HWANG 05 Sep 2019 1013 ------- ------- ------- ------- -- PRT WAIVER/ /ADALID VILLATORO 09/05 Released with Work/Duty Limitations [facility] Fam Med [facility] Tm 1) [facility]) OUTPATIENT [id number] TERESE JOHNSON 09/23 Released w/o Limitations [facility] Physica [facility] Therapy ) [facility] Surgical Sports Tm) OUTPATIENT [id number] f/u ltsh dxax,sa d,openD CE pop2 [id number] ALTA BRADFORD 09/25 Released with Work/Duty Limitations [facility](S D Ortho Surgica l Sports Tm) [facility]) OUTPATIENT [id number] MARTHA LUCIO 09/26 Released w/o Limitations [facility] Physica [facility] Therapy ) [facility]) OUTPATIENT [id number] TERESE JOHNSON 09/30 Released w/o Limitations [facility] Physica [facility] Therapy ) [facility](SD Desktop Technician PINC) OUTPATIENT [id number] PINC/IU D REMOVAL AND IUD REPLACE MENT SKINNY PUENTE 10/02 Released w/o Limitations [facility](S D Desktop Technician PINC) [facility]) OUTPATIENT [id number] MARTHA LUCIO R 10/03 Released w/o Limitations [facility] Physica [facility] Therapy ) [facility]) OUTPATIENT [id number] TERESE JOHNSON C 10/06 Released w/o Limitations [facility] Physica [facility] Therapy ) [facility]) OUTPATIENT [id number] MARTHA LUCIO R 10/08 Released w/o Limitations [facility] Physica [facility] Therapy ) [facility]) OUTPATIENT [id number] f/u Ba Cedeno CORTNEY C 10/14 Released w/o Limitations [facility] Physica [facility] Therapy ) [facility]) OUTPATIENT [id number] MARTHA LUCIO R 10/16 Released w/o Limitations [facility] Physica [facility] Therapy ) [facility]) OUTPATIENT [id number] MARTHA LUCIO R 10/20 Released w/o Limitations [facility] Physica [facility] Therapy ) [facility] Surgical Sports Tm) OUTPATIENT [id number] pop3 dos [id number] lt sh dxax sad opendce ALTA BRADFORD 10/23 Released with Work/Duty Limitations [facility](S D Ortho Surgica l Sports Tm) [facility]) OUTPATIENT [id number] MARTHA LUCIO R 10/24 Released w/o Limitations [facility] Physica [facility] Therapy ) [facility]) OUTPATIENT [id number] MARTHA LUCIO R 10/28 Released w/o Limitations [facility] Physica [facility] Therapy ) [facility]) OUTPATIENT [id number] MARTHA LUCIO R 10/31 Released w/o Limitations [facility] Physica [facility] Therapy ) [facility]) OUTPATIENT [id number] 7 MARTHA LUCIO R 11/07 Released w/o Limitations [facility] Physica [facility] Therapy ) [facility]) OUTPATIENT [id number] MARTHA LUCIO R 11/10 Released w/o Limitations [facility] Physica [facility] Therapy ) [facility]) OUTPATIENT [id number] f/u L ARVIND Curtis 11/13 Released w/o Limitations [facility] Physica [facility] Therapy ) [facility]) OUTPATIENT [id number] DAWSON STARK 11/19 Released w/o Limitations [facility] Phys[facility] Therapy ) [facility]) OUTPATIENT [id number] MARTHA LUCIO R 11/24 Released w/o Limitations [facility] Physica [facility] Therapy ) [facility]) OUTPATIENT [id number] MARTHA LUCIO R 11/27 Released w/o Limitations [facility] Physica [facility] Therapy ) [facility]) OUTPATIENT [id number] MARTHA LUCIO R 12/03 Released w/o Limitations [facility] Physica [facility] Therapy ) [facility]) OUTPATIENT [id number] f/u L ARVIND Monsivais 12/05 Released w/o Limitations [facility] Physica [facility] Therapy ) [facility]) OUTPATIENT [id number] MARTHA LUCIO R 12/12 Released w/o Limitations [facility] Physica [facility] Therapy ) [facility]) OUTPATIENT [id number] MARTHA LUCIO R 12/17 Released w/o Limitations [facility] Physica [facility] Therapy ) [facility]) OUTPATIENT [id number] NAVEED MARTHA R 12/25 Released w/o Limitations [facility] Physica [facility] Therapy ) [facility]) OUTPATIENT [id number] NAVEED MARTHA R 12/30 Released w/o Limitations [facility] Physica [facility] Therapy ) [facility]) OUTPATIENT [id number] MARTHA LUCIO R 01/01 Released w/o Limitations [facility] Physica l Therapy ) [facility]) OUTPATIENT [id number] f/u L SKINNY Matos 01/05 Released w/o Limitations [facility] Physica [facility] Therapy ) [facility]) OUTPATIENT [id number] MARTHA LUCIO R 01/12 Released w/o Limitations [facility] Physica l Therapy ) [facility]) OUTPATIENT [id number] NAVEED MARTHA R 01/19 Released w/o Limitations [facility] Physica l Therapy ) [facility] Med Readiness CLN) TELE CONSULT [id number] Notes Entered by: LITTLE KAN 28 Jan 2020 0658 ------- ------- ------- ------- -- EPHA REVIEW JAKE AMEZCUA 01/27 Referred for Appointment [facility](N [facility] Med Readine ss CLN) [facility] [facility] Physical Therapy) TELE CONSULT [id number] MARTHA LUCIO R 02/01 Other Not Elsewhere Classified [facility](N aval Station Physica l Therapy ) [facility] Med Readiness CLN) OUTPATIENT [id number] wwexam/ JAKE JIMENEZ 02/02 Released w/o Limitations [facility](N [facility] Med Readine ss CLN) [facility]) TELE CONSULT [id number] MARTHA LUCIO R 02/09 Other Not Elsewhere Classified [facility] Station Physica l Therapy ) [facility](SD Ortho Surgical Sports Tm) OUTPATIENT [id number] F/U LT SH ALTA BRADFORD Caty 02/16 Released w/o Limitations [facility](S D Ortho Surgica l Sports Tm) [facility] [facility]) OUTPATIENT [id number] 7 F/U L SHOULDE R SKINNY CEDENO 02/17 Released w/o Limitations [facility](N [facility] Station Physica l Therapy ) [facility]([place] [facility]) OUTPATIENT [id number] T-CON [id number] MARTHA LUCIO R 02/24 Released w/o Limitations [facility] Physica l Therapy ) [facility]([place] [facility]) OUTPATIENT [id number] T-CON [id number] MARTHA LUCIO R 03/11 Released w/o Limitations [facility] Physica l Therapy ) [facility]([place] [facility]) OUTPATIENT [id number] 4 T CON F/U L SHOULDE [id number] SKINNY CEDENO 03/18 Released w/o Limitations [facility] Physica l Therapy ) [facility] Med Readiness CLN) TELE CONSULT [id number] Notes Entered by: JR GUTIÉRREZ 29 Mar 2020 1322 ------- ------- ------- ------- -- josias ruth no imr discrep ancies. ready for phone fernie. ALPHONSE AUGUSTINE 03/29 [facility] Med Readine ss CLN) [facility]) OUTPATIENT [id number] t-con, f/u L shoulde r, SKINNY CEDENO 04/22 Released w/o Limitations [facility](N [facility] Station Physica l Therapy ) [facility](NTC Medical Exam Cln) OUTPATIENT [id number] CHARISSE LOMBARDI V 05/12 Released w/o Limitations [facility](N TC Medical Exam Cln) [facility] Fam Med PCMH Tm 1) OUTPATIENT [id number] 9 V/A//RA SH UNDER RIGHT ARM PIT//41 [phone] SHAKIRA BONILLA A 08/02 Released w/o Limitations [facility] Fam Med PCMH Tm 1) [facility] ([facility] OUTPATIENT [id number] 2 establi sh care + left shoulde r px GEORGE PETERSON 01/06 Released w/o Limitations [facility] ([facility])) [facility] ([facility] ([facility])) TELE CONSULT [id number] Notes Entered by: Curtis PETERSON 10 Jan 2021 1303 ------- ------- ------- ------- -- Thyroid level CHARMAINE SMALLS 01/10 Other Not Elsewhere Classified [facility] ([facility])) [facility] ([facility] Therapy [facility]) OUTPATIENT [id number] Pain in left shoulde r SARA BROWN 01/27 Released w/o Limitations [facility] ical [facility]) [facility] (Audiolog y Clinic) OUTPATIENT [id number] 3 Tinnitu skey MATTHEW Z 02/01 Released w/o Limitations [facility]) [facility] ([facility]) OUTPATIENT [id number] 7 dry needlin lorna SARA BROWN 02/01 Released w/o Limitations [facility] ical [facility]) [facility] (Immuniza tion Prev) OUTPATIENT [id number] Notes Entered by: MATHIEU HARMON 18 Feb 2021 0852 ------- ------- ------- ------- -- covid19 Vaccine Abi FAUSTINO, MATHIEU S 02/18 Released w/o Limitations [facility](Immu nizatio n Prev) [facility] ([facility] ([facility])) OUTPATIENT [id number] derm concern FEDERICO PETERSONClarice Smith 02/28 Released w/o Limitations [facility] ([facility])) [facility] ([facility]) OUTPATIENT [id number] dry needmohit rothman [place], SARA L 03/04 Released w/o Limitations [facility]) [facility] ([facility] ([facility])) OUTPATIENT [id number] 7 Mole Removal SHAHANA PETERSONARTI Smith 03/16 Released w/o Limitations [facility] ([facility])) [facility] ([facility]) OUTPATIENT [id number] 5 dry ernie rothman [place], SARA L 03/24 Released w/o Limitations [facility]) [facility] ([facility])) OUTPATIENT [id number] Notes Entered by: SABINO ARECHIGA 25 Mar 2021 1038 ------- ------- ------- ------- -- chest px MINERVA SAMUEL 03/25 Immediate Referral [facility] [facility] ([facility])) [facility] (Referral Managemen t Clinic) TELE CONSULT [id number] Notes Entered by: JEREMIAH MICHAELS 31 Mar 2021 1758 ------- ------- ------- ------- -- Network Results - Cardiol ogy 1 MINERVA SAMUEL 03/31 [facility] [facility](Refe rral Manage ent Clinic) [facility] ([facility] ([facility])) TELE CONSULT [id number] Notes Entered by: DANA CARDOZO V 04 Apr 2021 1550 ------- ------- ------- ------- -- PHA needs to be reviewe d VITALIY OTERO 04/04 Referred for Appointment [facility] ([facility])) [facility] ([facility])) OUTPATIENT [id number] [facility] [phone] GEORGE PETERSON 04/08 Released w/o Limitations [facility] [facility] ([facility])) [facility] (Occupati onal Health Clinic) OUTPATIENT [id number] 5 BASELIN E [phone] ([phone]) KATI CABA I 04/15 Released w/o Limitations [facility] [facility](Occu pationa l Health Clinic) [facility] (Hearing Conservat ion Clinic) OUTPATIENT [id number] Notes Entered by: JOSE ELIAS CABA I 15 Apr 2021 0853 ------- ------- ------- ------- -- Annual hearing KATI CABA I 04/15 Released w/o Limitations [facility] [facility](Hear ing Conserv ation [facility]) [facility] (Referral Managemen t Clinic) TELE CONSULT [id number] Notes Entered by: LISA MORENO 15 Apr 2021 112 ------- ------- ------- ------- -- Network Results - Cardiol ogy (Holter ) 1 MINERVA SAMUEL 04/15 [facility] [facility]fe [facility]ral Manage ent Clinic) [facility] (Occupati onal Health Clinic) OUTPATIENT [id number] 7 BASELIN E [phone] ([phone]) FROILAN REDDY 04/26 Released w/o Limitations [facility](Occu pationa l Health Clinic) [facility] ([facility] ([facility])) OUTPATIENT [id number] feet pain GEORGE PETERSON R 05/12 Released w/o Limitations [facility] [place]([facility] ([facility])) [facility] (Podiatry Clinic) OUTPATIENT [id number] Plantar fascial fibroma JEFF Wiggins 05/27 Released w/o Limitations [facility] [facility](Podi [facility]ry [facility]) [facility] ([facility])) OUTPATIENT [id number] Hip px L side DENIS SANTIAGO E 06/29 Released w/o Limitations [place] ([facility])) [facility] ([facility] t [facility]) TELE CONSULT [id number] Notes Entered by: LISA MORENO 05 Jul 2021 1556 ------- ------- ------- ------- -- Network Results - Orthoti cs 1 KYLE NELSON 07/05 [place](Refe rral [facility] ent Clinic) [facility] (Immuniza tion Prev) OUTPATIENT [id number] Notes Entered by: Ba YOO R 21 Sep 2021 1137 ------- ------- ------- ------- -- flu shot JANELLE YOO 09/21 Released w/o Limitations [facility] [facility](Immu nizatio n Prev) [facility] ([facility] ([facility])) OUTPATIENT [id number] 2 left shoulde r px TIAGO SCHULTE R 10/20 Released w/o Limitations [facility] [facility] ([facility])) [facility] (Immuniza tion Prev) OUTPATIENT [id number] J&J booster [phone] HIRAM VINCENT 10/24 Released w/o Limitations [facility](Immu nizatio n Prev) [facility] (Physical Therapy Clinic) OUTPATIENT [id number] Cervica lgia SARA BROWN 11/03 Released w/o Limitations [facility] [facility] ical [facility]) [facility] ([facility]) OUTPATIENT [id number] SARA BROWN 11/22 Released w/o Limitations [facility]) [facility] ([facility]) OUTPATIENT [id number] SARA BROWN 12/05 Released w/o Limitations [facility]) [facility] TELE CONSULT [id number] Notes Entered by: CHARMAINE HARDEN 20 Jan 2022 0840 ------- ------- ------- ------- -- Vaccine Questio n CHARMAINE SMALLS 01/20 Released to Self Care [place]([facility] ([facility])) [facility] ([facility])) TELE CONSULT [id number] Notes Entered by: MATHIEU HARMON 28 Mar 2022 1332 ------- ------- ------- ------- -- pha SABINO Barton 03/28 Referred for Appointment [facility] [facility] ([facility])) OUTPATIENT [id number] PHA [facility] [phone] GEORGE PETERSON 03/31 Released w/o Limitations [place] (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)) OUTPATIENT [id number] GEORGE Spann 06/06 Released w/o Limitations [facility] [facility] ([facility])) [facility] ([facility])) TELE CONSULT [id number] Notes Entered by: Curtis PETERSON 20 Jun 2022 1057 ------- ------- ------- ------- -- Results CHARMAINE SMALLS 06/20 Referred for Appointment [facility] [facility] ([facility])) [facility] ([facility])) OUTPATIENT [id number] f/u for lab results MILANA TAVERAS 08/03 Released w/o Limitations [facility] [facility] ([facility])) [facility] ([facility]at ion [facility]) OUTPATIENT [id number] Notes Entered by: Luis Carlos FITZPATRICK 08 Aug 2022 0918 ------- ------- ------- ------- -- annual hearing test CHARLEE FITZPATRICK 08/08 Released w/o Limitations [facility] [facility] ing Conserv ation [facility]) [facility] ([facility] TELE CONSULT [id number] Notes Entered by: MILANA TAVERAS 11 Aug 2022 0806 ------- ------- ------- ------- -- lab results MILANA TAVERAS 08/11 [facility] [facility] ([facility])) [facility] ([facility])) OUTPATIENT [id number] SEPERAT ION GEORGE ESPINOSA 08/18 Released w/o Limitations [facility] [facility] ([facility])) [facility] (Immuniza tions ([facility])) OUTPATIENT [id number] Notes Entered by: ANEL VASQUEZ 30 Aug 2022 1425 ------- ------- ------- ------- -- Flu shot THEA RUIZ R 08/30 Released w/o Limitations [facility](Immu eliecer montero ([facility])) [facility]) TELE CONSULT [id number] Notes Entered by: LISA MORENO 30 Aug 2022 1552 ------- ------- ------- ------- -- Network Results - Sleep disorde r 2 MILANA TAVERAS 08/30 [facility] Outpatient Encounter [id number] 09/12 [facility] 8203[facility]-104 [facility] Between Visit [id number] 05/30 Discharge Disposition: Home or Self Care 8203R-1 04 MDG 8203R-104 MDG Between Visit [id number] 05/30 Discharge Disposition: Home or Self Care 8203R-1 04 MDG 8203R-104 MDG Outpatient [id number] GENTRY HARMON 06/12 Discharge Disposition: Home or Self Care 8203R-1 04 MDG [facility] Outpatient Encounter [id number] 06/25 [facility] Outpatient Encounter [id number] 07/04 [facility] [place]Joint [facility] Between Visit 07/08 Discharge Disposition: Home or Self Care zzJoint [facility] [facility] Outpatient Encounter [id number] 1.07/17 [facility] [place] Outpatient Encounter [id number] Diagnos is: ICD-10- CM S43.132 A Disloca tion of l acromio clav jt, > 200% displac mnt, init
YUE CEDENO ClariceRogelio LESTERMANNY 07/24 [facility] [place] Outpatient Encounter [id number] [facility] [place] Outpatient Encounter [id number] 07/25 [facility] [place] OFFICE O/P EST MOD 30 MIN [id number] Diagnos is: ICD-10- CM G47.33 Obstruc tive sleep apnea (adult) (pediat jaime)
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<br/ > ALLY SALVADOR 07/29 [facility] [place] [place] Outpatient Encounter [id number] 07/30 [facility] [place] 8203R-104 MDG Between Visit [id number] 09/26 Discharge Disposition: Home or Self Care 8203R-1 04 MDG [facility] VERN AGUAYO Outpatient Encounter [id number] 10/06 [facility] DOMICIL LIARY [facility] Outpatient Encounter [id number] 1.10/06 [facility] INSERT INTRAUTERI NE DEVICE [id number] Diagnos is: ICD-10- CM Z12.4 Encount er for screeni ng for maligna nt neoplas m of cervix< br/> TYLER,Ba HIREN CASPER 10/06 [facility] Outpatient Encounter [id number] HENRI GREENE 10/16 [facility] Outpatient Encounter [id number] 1.10/17 [facility] [place] [facility] Procedures Combined list of: 1) Procedures from Department of Veterans Affairs facilities going back up to thelast 18 months, not all VA non-surgical procedures are included; 2) All procedures from the Department of Defense facilities. Procedure Procedure Type Code Date Perfomer Comments [facility] e IMMUNIZATION ADMINISTRATION (INCLUDES PERCUTANEOUS, INTRADERMAL, SUBCUTANEOUS, OR INTRAMUSCULAR INJECTIONS); 1 VACCINE (SINGLE OR COMBINATION VACCINE/TOXOID) 08/30 [facility] PURE TONE AUDIOMETRY (THRESHOLD), AUTOMATED; AIR ONLY 08/08 DoD ADMINISTRATION OF PATIENT-FOCUSED HEALTH RISK ASSESSMENT INSTRUMENT (EG, HEALTH HAZARD APPRAISAL) WITH SCORING AND DOCUMENTATION, PER STANDARDIZED INSTRUMENT 08/04 DoD DETERMINATION OF REFRACTIVE STATE 05/22 DoD ADMINISTRATION OF PATIENT-FOCUSED HEALTH RISK ASSESSMENT INSTRUMENT (EG, HEALTH HAZARD APPRAISAL) WITH SCORING AND DOCUMENTATION, PER STANDARDIZED INSTRUMENT 04/03 DoD NEEDLE INSERTION(S) WITHOUT INJECTION(S); 1 OR 2 MUSCLE(S) 12/05 DoD MANUAL THERAPY TECHNIQUES (EG, MOBILIZATION/ MANIPULATION, MANUAL LYMPHATIC DRAINAGE, MANUAL TRACTION), 1 OR MORE REGIONS, EACH 15 MINUTES 11/22 DoD THERAPEUTIC PROCEDURE, 1 OR MORE AREAS, EACH 15 MINUTES; THERAPEUTIC EXERCISES TO DEVELOP STRENGTH AND ENDURANCE, RANGE OF MOTION AND FLEXIBILITY 11/03 DoD IMMUNIZATION ADMINISTRATION (INCLUDES PERCUTANEOUS, INTRADERMAL, SUBCUTANEOUS, OR INTRAMUSCULAR INJECTIONS); 1 VACCINE (SINGLE OR COMBINATION VACCINE/TOXOID) 10/24 DoD IMMUNIZATION ADMINISTRATION (INCLUDES PERCUTANEOUS, INTRADERMAL, SUBCUTANEOUS, OR INTRAMUSCULAR INJECTIONS); 1 VACCINE (SINGLE OR COMBINATION VACCINE/TOXOID) 09/21 [facility] HANDLING,CONVEY,&/ ANY OTH SERV,CONN W IMP OF ORD INV DEV (EG,DESIGN,FIT,PCK ,HND,DEL/MAIL) WHEN DEV SUCH ORTH,PROT,PROSTH,F AB,OUTSIDE LAB/SHOP BUT ITEM DENI,&ARE TO BE FIT&ADJ,ATT PHYS/OTH QUAL HCP 05/27 DoD VIS FUNCT SCREEN,AUTOMAT/TAIRA I-AUTOMAT BILAT QUANT DETERM VISUAL ACUITY,OCULAR ALIGN,COLOR VISION,PSEUDOISOCH ROMAT PLATES,& FIELD VIS (MAY INC ALL/SOME SCRN DETERM FOR CONTRAST SENSITIV,VIS UND GLARE) 04/15 [facility] PURE TONE AUDIOMETRY (THRESHOLD), AUTOMATED; AIR ONLY 04/15 DoD BRIEF COMM TECH-BASE SERV,E.G. VIRT CHK-IN,BY PHYS/OTH QUAL HCP,RPT E&M SERV,PROV TO EST PT,NOT ORIG FRM REL E/M SERV PROV W/IN PREV 7DAY NOR LEAD TO E/M SRV/PX W/IN NEXT 24HR/SOON OSITO; 5-10 MIN DISC 04/12 [facility] TANGENTIAL BIOPSY OF SKIN (EG, SHAVE, SCOOP, SAUCERIZE, CURETTE); SINGLE LESION 04/01 [facility] ELECTROCARDIOGRAM, ROUTINE ECG WITH AT LEAST 12 LEADS; WITH INTERPRETATION AND REPORT 03/25 [facility] RE-EVAL,PHYSICAL THERAPY EST PLAN OF CARE,REQ:EXAM,REV, HX & USE,STAND TESTS &SUZAN REQ;REV PLAN OF CARE USING STAND PAT ASSESS INSTR &/SUZAN ASSESS FUNC OUTCOME TYP,20 MIN SPENT [id number] W PAT&/FAM 03/24 [facility] THERAPEUTIC PROCEDURE, 1 OR MORE AREAS, EACH 15 MINUTES; THERAPEUTIC EXERCISES TO DEVELOP STRENGTH AND ENDURANCE, RANGE OF MOTION AND FLEXIBILITY 03/04 DoD IMMUNIZATION ADMINISTRATION (INCLUDES PERCUTANEOUS, INTRADERMAL, SUBCUTANEOUS, OR INTRAMUSCULAR INJECTIONS); 1 VACCINE (SINGLE OR COMBINATION VACCINE/TOXOID) 02/18 [facility] THERAPEUTIC PROCEDURE, 1 OR MORE AREAS, EACH 15 MINUTES; THERAPEUTIC EXERCISES TO DEVELOP STRENGTH AND ENDURANCE, RANGE OF MOTION AND FLEXIBILITY 02/01 [facility] EDUCATION &TRAINING, PATIENT SELF-MGT QUALIFIED, NONPHYSICIAN HEALTH CAT DRIVER USING STDIZED CURRICULUM, [id number] W THE PATIENT (COULD INCL CAREGIVER/FAMILY) EA 30 MIN; INDIVIDUAL PATIENT 02/01 [facility] PHYSICAL THERAPY EVALUATION:MODERAT E COMPLEXITY,REQ:HIS T PRES PROB,1-2 PERS FACT &/COMORB,IMPACT PLAN OF CARE;CLIN DECIS MAKING OF MOD COMPLEX,TYP,30 MIN ARE SPENT [id number] W THE PATIENT &/FAMILY 01/27 [facility] BRIEF COMM TECH-BASE SERV,E.G. VIRT CHK-IN,BY PHYS/OTH QUAL HCP,RPT E&M SERV,PROV TO EST PT,NOT ORIG FRM REL E/M SERV PROV W/IN PREV 7DAY NOR LEAD TO E/M SRV/PX W/IN NEXT 24HR/SOON OSITO; 5-10 MIN DISC 05/12 DoD WAIVER SERVICES; NOT OTHERWISE SPECIFIED (NOS) 04/22 DoD TELE ASSESS & MGT SRV PROV QUAL NONPHYS HLTH CARE PRO TO EST PAT,PARENT,GUARD NOT ORIG REL ASSESS & MGT SRV PROV W/IN PREV 7 DAYS NOR LEAD ASSESS & MGT SRV/PX W/IN NXT 24H/SOON APT; 11-20 MIN MED DIS 03/29 DoD WAIVER SERVICES; NOT OTHERWISE SPECIFIED (NOS) 03/18 DoD WAIVER SERVICES; NOT OTHERWISE SPECIFIED (NOS) 03/11 DoD WAIVER SERVICES; NOT OTHERWISE SPECIFIED (NOS) 02/24 [facility] THERAPEUTIC PROCEDURE, 1 OR MORE AREAS, EACH 15 MINUTES; THERAPEUTIC EXERCISES TO DEVELOP STRENGTH AND ENDURANCE, RANGE OF MOTION AND FLEXIBILITY 02/17 [facility] SCREENING PAPANICOLAOU SMEAR; OBTAINING, PREPARING AND CONVEYANCE OF CERVICAL OR VAGINAL SMEAR TO LABORATORY 02/05 DoD TELE ASSESS & MGT SRV PROV QUAL NONPHYS HLTH CARE PRO TO EST PAT,PARENT,GUARD NOT ORIG REL ASSESS & MGT SRV PROV W/IN PREV 7 DAYS NOR LEAD ASSESS & MGT SRV/PX W/IN NXT 24H/SOON APT; 11-20 MIN MED DIS 01/27 DoD THERAPEUTIC PROCEDURE, 1 OR MORE AREAS, EACH 15 MINUTES; THERAPEUTIC EXERCISES TO DEVELOP STRENGTH AND ENDURANCE, RANGE OF MOTION AND FLEXIBILITY 01/19 DoD THERAPEUTIC PROCEDURE, 1 OR MORE AREAS, EACH 15 MINUTES; THERAPEUTIC EXERCISES TO DEVELOP STRENGTH AND ENDURANCE, RANGE OF MOTION AND FLEXIBILITY 01/12 DoD THERAPEUTIC PROCEDURE, 1 OR MORE AREAS, EACH 15 MINUTES; THERAPEUTIC EXERCISES TO DEVELOP STRENGTH AND ENDURANCE, RANGE OF MOTION AND FLEXIBILITY 01/05 DoD STRAPPING; SHOULDER (EG, VELPEAU) 01/01 DoD THERAPEUTIC PROCEDURE, 1 OR MORE AREAS, EACH 15 MINUTES; THERAPEUTIC EXERCISES TO DEVELOP STRENGTH AND ENDURANCE, RANGE OF MOTION AND FLEXIBILITY 12/30 DoD THERAPEUTIC PROCEDURE, 1 OR MORE AREAS, EACH 15 MINUTES; THERAPEUTIC EXERCISES TO DEVELOP STRENGTH AND ENDURANCE, RANGE OF MOTION AND FLEXIBILITY 12/25 DoD THERAPEUTIC PROCEDURE, 1 OR MORE AREAS, EACH 15 MINUTES; THERAPEUTIC EXERCISES TO DEVELOP STRENGTH AND ENDURANCE, RANGE OF MOTION AND FLEXIBILITY 12/17 DoD THERAPEUTIC PROCEDURE, 1 OR MORE AREAS, EACH 15 MINUTES; THERAPEUTIC EXERCISES TO DEVELOP STRENGTH AND ENDURANCE, RANGE OF MOTION AND FLEXIBILITY 12/12 DoD RE-EVAL,PHYSICAL THERAPY EST PLAN OF CARE,REQ:EXAM,REV, HX & USE,STAND TESTS &SUZAN REQ;REV PLAN OF CARE USING STAND PAT ASSESS INSTR &/SUZAN ASSESS FUNC OUTCOME TYP,20 MIN SPENT [id number] W PAT&/FAM 12/05 DoD THERAPEUTIC PROCEDURE, 1 OR MORE AREAS, EACH 15 MINUTES; THERAPEUTIC EXERCISES TO DEVELOP STRENGTH AND ENDURANCE, RANGE OF MOTION AND FLEXIBILITY 12/03 DoD APPLICATION OF A MODALITY TO 1 OR MORE AREAS; HOT OR COLD PACKS 11/27 DoD THERAPEUTIC PROCEDURE, 1 OR MORE AREAS, EACH 15 MINUTES; THERAPEUTIC EXERCISES TO DEVELOP STRENGTH AND ENDURANCE, RANGE OF MOTION AND FLEXIBILITY 11/21 DoD APPLICATION OF A MODALITY TO 1 OR MORE AREAS; HOT OR COLD PACKS 11/19 DoD RE-EVAL,PHYSICAL THERAPY EST PLAN OF CARE,REQ:EXAM,REV, HX & USE,STAND TESTS &SUZAN REQ;REV PLAN OF CARE USING STAND PAT ASSESS INSTR &/SUZAN ASSESS FUNC OUTCOME TYP,20 MIN SPENT [id number] W PAT&/FAM 11/13 DoD APPLICATION OF A MODALITY TO 1 OR MORE AREAS; HOT OR COLD PACKS 11/10 DoD APPLICATION OF A MODALITY TO 1 OR MORE AREAS; HOT OR COLD PACKS 11/07 DoD APPLICATION OF A MODALITY TO 1 OR MORE AREAS; HOT OR COLD PACKS 10/31 DoD THERAPEUTIC PROCEDURE, 1 OR MORE AREAS, EACH 15 MINUTES; THERAPEUTIC EXERCISES TO DEVELOP STRENGTH AND ENDURANCE, RANGE OF MOTION AND FLEXIBILITY 10/28 DoD THERAPEUTIC PROCEDURE, 1 OR MORE AREAS, EACH 15 MINUTES; THERAPEUTIC EXERCISES TO DEVELOP STRENGTH AND ENDURANCE, RANGE OF MOTION AND FLEXIBILITY 10/24 DoD POSTOPERATIVE FOLLOW-UP VISIT, NORMALLY INCLUDED IN THE SURGICAL PACKAGE, INDICATE THAT EVALUATION & MANAGEMENT SERVICE WAS PERFORMED DURING A POSTOPERATIVE PERIOD REASON RELATED ORIGINAL PROCEDURE 10/23 [facility] MANUAL THERAPY TECHNIQUES (EG, MOBILIZATION/ MANIPULATION, MANUAL LYMPHATIC DRAINAGE, MANUAL TRACTION), 1 OR MORE REGIONS, EACH 15 MINUTES 10/20 DoD THERAPEUTIC PROCEDURE, 1 OR MORE AREAS, EACH 15 MINUTES; THERAPEUTIC EXERCISES TO DEVELOP STRENGTH AND ENDURANCE, RANGE OF MOTION AND FLEXIBILITY 10/16 [facility] RE-EVAL,PHYSICAL THERAPY EST PLAN OF CARE,REQ:EXAM,REV, HX & USE,STAND TESTS &SUZAN REQ;REV PLAN OF CARE USING STAND PAT ASSESS INSTR &/SUZAN ASSESS FUNC OUTCOME TYP,20 MIN SPENT [id number] W PAT&/FAM 10/14 [facility] MANUAL THERAPY TECHNIQUES (EG, MOBILIZATION/ MANIPULATION, MANUAL LYMPHATIC DRAINAGE, MANUAL TRACTION), 1 OR MORE REGIONS, EACH 15 MINUTES 10/08 [facility] APPLICATION OF A MODALITY TO 1 OR MORE AREAS; HOT OR COLD PACKS 10/06 DoD THERAPEUTIC PROCEDURE, 1 OR MORE AREAS, EACH 15 MINUTES; THERAPEUTIC EXERCISES TO DEVELOP STRENGTH AND ENDURANCE, RANGE OF MOTION AND FLEXIBILITY 10/03 [facility] LEVONORGESTREL-REL EASING INTRAUTERINE CONTRACEPTIVE SYSTEM (MIRENA), 52 MG 10/02 DoD APPLICATION OF A MODALITY TO 1 OR MORE AREAS; HOT OR COLD PACKS 09/30 DoD THERAPEUTIC PROCEDURE, 1 OR MORE AREAS, EACH 15 MINUTES; THERAPEUTIC EXERCISES TO DEVELOP STRENGTH AND ENDURANCE, RANGE OF MOTION AND FLEXIBILITY 09/26 [facility] POSTOPERATIVE FOLLOW-UP VISIT, NORMALLY INCLUDED IN THE SURGICAL PACKAGE, INDICATE THAT EVALUATION & MANAGEMENT SERVICE WAS PERFORMED DURING A POSTOPERATIVE PERIOD REASON RELATED ORIGINAL PROCEDURE 09/25 [facility]D APPLICATION OF A MODALITY TO 1 OR MORE AREAS; HOT OR COLD PACKS 09/23 [facility] ADMINISTRATION OF PATIENT-FOCUSED HEALTH RISK ASSESSMENT INSTRUMENT (EG, HEALTH HAZARD APPRAISAL) WITH SCORING AND DOCUMENTATION, PER STANDARDIZED INSTRUMENT 09/05 [facility] THERAPEUTIC PROCEDURE, 1 OR MORE AREAS, EACH 15 MINUTES; THERAPEUTIC EXERCISES TO DEVELOP STRENGTH AND ENDURANCE, RANGE OF MOTION AND FLEXIBILITY 09/05 [facility] APPLICATION OF A MODALITY TO 1 OR MORE AREAS; HOT OR COLD PACKS 09/02 [facility]D APPLICATION OF A MODALITY TO 1 OR MORE AREAS; HOT OR COLD PACKS 08/28 DoD APPLICATION OF A MODALITY TO 1 OR MORE AREAS; HOT OR COLD PACKS 08/26 [facility] MANUAL THERAPY TECHNIQUES (EG, MOBILIZATION/ MANIPULATION, MANUAL LYMPHATIC DRAINAGE, MANUAL TRACTION), 1 OR MORE REGIONS, EACH 15 MINUTES 08/21 [facility] MANUAL THERAPY TECHNIQUES (EG, MOBILIZATION/ MANIPULATION, MANUAL LYMPHATIC DRAINAGE, MANUAL TRACTION), 1 OR MORE REGIONS, EACH 15 MINUTES 08/19 [facility] POSTOPERATIVE FOLLOW-UP VISIT, NORMALLY INCLUDED IN THE SURGICAL PACKAGE, INDICATE THAT EVALUATION & MANAGEMENT SERVICE WAS PERFORMED DURING A POSTOPERATIVE PERIOD REASON RELATED ORIGINAL PROCEDURE 08/18 [facility] THERAPEUTIC ACTIVITIES, DIRECT (ONE-ON-ONE) PATIENT CONTACT (USE OF DYNAMIC ACTIVITIES TO IMPROVE FUNCTIONAL PERFORMANCE), EACH 15 MINUTES 08/15 [facility] APPLICATION OF A MODALITY TO 1 OR MORE AREAS; HOT OR COLD PACKS 08/13 [facility] PHYSICAL THERAPY EVALUATION:LOW COMPLEXITY,REQ:HIS T W NO PERS FACT &/COMORB THAT IMPACT PLAN OF CARE;CLIN DECIS MAKING OF LOW COMPLEXITY,TYPICAL LY,20 MIN ARE SPENT [id number] W THE PATIENT &/FAMILY 08/11 [facility] CLAVICULECTOMY; PARTIAL 08/04 [facility] ARTHROCENTESIS, ASPIRATION AND/OR INJECTION, INTERMEDIATE JOINT OR BURSA (EG, TEMPOROMANDIBULAR, ACROMIOCLAVICULAR, WRIST, ELBOW OR ANKLE, OLECRANON BURSA); WITHOUT ULTRASOUND GUIDANCE 06/24 [facility] ELECTROCARDIOGRAM, ROUTINE ECG WITH AT LEAST 12 LEADS; INTERPRETATION AND REPORT ONLY 05/08 [facility] VIS FUNCT SCREEN,AUTOMAT/TIARA I-AUTOMAT BILAT QUANT DETERM VISUAL ACUITY,OCULAR ALIGN,COLOR VISION,PSEUDOISOCH ROMAT PLATES,& FIELD VIS (MAY INC ALL/SOME SCRN DETERM FOR CONTRAST SENSITIV,VIS UND GLARE) 04/29 [facility] PATIENT EDUCATION, NOT OTHERWISE CLASSIFIED, NON-PHYSICIAN PROVIDER, GROUP, PER SESSION 02/17 [facility]D ADMINISTRATION OF PATIENT-FOCUSED HEALTH RISK ASSESSMENT INSTRUMENT (EG, HEALTH HAZARD APPRAISAL) WITH SCORING AND DOCUMENTATION, PER STANDARDIZED INSTRUMENT 02/13 DoD TELE ASSESS & MGT SRV PROV QUAL NONPHYS HLTH CARE PRO TO EST PAT,PARENT,GUARD NOT ORIG REL ASSESS & MGT SRV PROV W/IN PREV 7 DAYS NOR LEAD ASSESS & MGT SRV/PX W/IN NXT 24H/SOON APT; 11-20 MIN MED DIS 01/23 [facility]D ARTHROCENTESIS, ASPIRATION AND/OR INJECTION, MAJOR JOINT OR BURSA (EG, SHOULDER, HIP, KNEE, SUBACROMIAL BURSA); WITHOUT ULTRASOUND GUIDANCE 09/24 DoD SIMPLE REPAIR OF SUPERFICIAL WOUNDS OF SCALP, NECK, AXILLAE, EXTERNAL GENITALIA, TRUNK AND/OR EXTREMITIES (INCLUDING HANDS AND FEET); 2.5 CM OR LESS 07/06 [facility]D RE-EVAL,PHYSICAL THERAPY EST PLAN OF CARE,REQ:EXAM,REV, HX & USE,STAND TESTS &SUZAN REQ;REV PLAN OF CARE USING STAND PAT ASSESS INSTR &/SUZAN ASSESS FUNC OUTCOME TYP,20 MIN SPENT [id number] W PAT&/FAM 04/22 [facility]D HEALTH&BEHAV ASSESSMENT (EG, HEALTH-FOC CLINICAL INTERVIEW, BEHAVIORAL OBSERVATIONS, PSYCHOPHYSICOLOGIC AL MONITOR, HEALTH-ORIENT QUESTIONNAIRES), EA 15 MIN [id number] W THE PATIENT; INIT ASSESSMENT 04/04 [facility] ARTHROCENTESIS, ASPIRATION AND/OR INJECTION, SMALL JOINT OR BURSA (EG, FINGERS, TOES); WITHOUT ULTRASOUND GUIDANCE 03/20 [facility]D RE-EVAL,PHYSICAL THERAPY EST PLAN OF CARE,REQ:EXAM,REV, HX & USE,STAND TESTS &SUZAN REQ;REV PLAN OF CARE USING STAND PAT ASSESS INSTR &/SUZAN ASSESS FUNC OUTCOME TYP,20 MIN SPENT [id number] W PAT&/FAM 03/20 [facility]D ADMINISTRATION OF PATIENT-FOCUSED HEALTH RISK ASSESSMENT INSTRUMENT (EG, HEALTH HAZARD APPRAISAL) WITH SCORING AND DOCUMENTATION, PER STANDARDIZED INSTRUMENT 02/18 DoD SELF-CARE/HOME MANAGMENT TRAIN (EG,ACT OF DAILY LIVING (ADL) &COMPENSAT TRAIN,MEAL PREPARATION,SAFETY PROCS,AND INSTRUCT IN USE OF ASST TECHNOLOGY DEV/ADPT EQUIP) DIR ONE-ON-ONE CONT,EA 15 MINUTES 02/05 [facility]D THERAPEUTIC PROCEDURE, 1 OR MORE AREAS, EACH 15 MINUTES; THERAPEUTIC EXERCISES TO DEVELOP STRENGTH AND ENDURANCE, RANGE OF MOTION AND FLEXIBILITY 01/29 [facility] MANUAL THERAPY TECHNIQUES (EG, MOBILIZATION/ MANIPULATION, MANUAL LYMPHATIC DRAINAGE, MANUAL TRACTION), 1 OR MORE REGIONS, EACH 15 MINUTES 01/22 [facility] ELECTROCARDIOGRAM, ROUTINE ECG WITH AT LEAST 12 LEADS; INTERPRETATION AND REPORT ONLY 01/21 [facility] DETERMINATION OF REFRACTIVE STATE 01/16 [facility] MANUAL THERAPY TECHNIQUES (EG, MOBILIZATION/ MANIPULATION, MANUAL LYMPHATIC DRAINAGE, MANUAL TRACTION), 1 OR MORE REGIONS, EACH 15 MINUTES 01/15 [facility] TELE ASSESS & MGT SRV PROV QUAL NONPHYS HLTH CARE PRO TO EST PAT,PARENT,GUARD NOT ORIG REL ASSESS & MGT SRV PROV W/IN PREV 7 DAYS NOR LEAD ASSESS & MGT SRV/PX W/IN NXT 24H/SOON APT; 11-20 MIN MED DIS 01/11 [facility] PHYSICAL OR MANIPULATIVE THERAPY PERFORMED FOR MAINTENANCE RATHER THAN ORTHODOXY 01/10 DoD PHYSICAL OR MANIPULATIVE THERAPY PERFORMED FOR MAINTENANCE RATHER THAN ORTHODOXY 01/03 [facility] IMMUNIZATION ADMINISTRATION (INCLUDES PERCUTANEOUS, INTRADERMAL, SUBCUTANEOUS, OR INTRAMUSCULAR INJECTIONS); EACH ADDITIONAL VACCINE (SINGLE OR COMBINATION VACCINE/TOXOID) 07/30 [facility] POLIOVIRUS VACCINE, INACTIVATED (IPV), FOR SUBCUTANEOUS OR INTRAMUSCULAR USE 01/04 [facility] ELECTROCARDIOGRAM, ROUTINE ECG WITH AT LEAST 12 LEADS; WITH INTERPRETATION AND REPORT 12/08 [facility] SKIN TEST; TUBERCULOSIS, INTRADERMAL 12/07 [facility] INJECTION, PENICILLIN G BENZATHINE, 100,000 UNITS 12/01 [facility] SCREENING PAPANICOLAOU SMEAR; OBTAINING, PREPARING AND CONVEYANCE OF CERVICAL OR VAGINAL SMEAR TO LABORATORY 12/01 [facility] PATIENT EDUCATION, NOT OTHERWISE CLASSIFIED, NON-PHYSICIAN PROVIDER, GROUP, PER SESSION 12/01 [facility] VIS FUNCT SCREEN,AUTOMAT/TIARA I-AUTOMAT BILAT QUANT DETERM VISUAL ACUITY,OCULAR ALIGN,COLOR VISION,PSEUDOISOCH ROMAT PLATES,& FIELD VIS (MAY INC ALL/SOME SCRN DETERM FOR CONTRAST SENSITIV,VIS UND GLARE) 11/30 [facility] PURE TONE AUDIOMETRY (THRESHOLD); AIR ONLY 11/30 [facility] Physical Therapy Mobilization Joint Physical Therapy Mobilization Joint 79370 09/23 TERESE JOHNSON [facility] Physical Therapy: ___ Se ion Segments, 15 Minutes Each Physical Therapy: ___ Session Segments, 15 Minutes Each 09449 09/23 TERESE JOHNSON [facility] Physical Therapy: ___ Se ion Segments, 15 Minutes Each Physical Therapy: ___ Session Segments, 15 Minutes Each 67542 09/05 ARVIND HERNANDEZ [facility] Physical Therapy Service Re-Evaluation Physical Therapy Service Re-Evaluation 75462 09/05 ARVIND HERNANDEZ [facility] Preventive Medicine Administration Of Health Risk Questionnaire Patient-Focused Preventive Medicine Administration Of Health Risk Questionnaire Patient-Focused 47178 09/05 ADALID ALFRED [facility] Modalities Cryotherapy Cold Packs Modalities Cryotherapy Cold Packs 57677 09/02 TERESE JOHNSON [facility] Physical Therapy Mobilization Joint Physical Therapy Mobilization Joint 13906 09/02 TERESE JOHNSON [facility] Physical Therapy: ___ Se ion Segments, 15 Minutes Each Physical Therapy: ___ Session Segments, 15 Minutes Each 06667 09/02 TERESE JOHNSON [facility] Modalities Cryotherapy Cold Packs Modalities Cryotherapy Cold Packs 26156 08/28 AB CADENA I [facility] Physical Therapy Mobilization Joint Physical Therapy Mobilization Joint 33644 08/28 AB CADENA I [facility] A isted Exercises For ROM Assisted Exercises For ROM 23739 08/28 AB CADENA I [facility] Modalities Cryotherapy Cold Packs Modalities Cryotherapy Cold Packs 24612 08/26 TERESE JOHNSON [facility] Physical Therapy: ___ Se ion Segments, 15 Minutes Each Physical Therapy: ___ Session Segments, 15 Minutes Each 52266 08/26 TERESE JOHNSON [facility] Physical Therapy Mobilization Joint Physical Therapy Mobilization Joint 41447 08/21 DAILY BETHEA V [facility] A isted Exercises For ROM Assisted Exercises For ROM 67217 08/21 DAILY BETHEA V [facility] Physical Therapy Mobilization Joint Physical Therapy Mobilization Joint 64291 08/19 TERESE JOHNSON [facility] Physical Therapy: ___ Se ion Segments, 15 Minutes Each Physical Therapy: ___ Session Segments, 15 Minutes Each 93578 08/19 TERESE JOHNSON [facility] Postoperative Visit, Without Charge Postoperative Visit, Without Charge 67619 08/18 ALTA BRADFORD [facility] PT A e ment Kinetic Training PT Assessment Kinetic Training 14322 08/15 ANDREW KAN [facility] Modalities Cryotherapy Cold Packs Modalities Cryotherapy Cold Packs 41427 08/13 JULIÁN PULIDO [facility] Physical Therapy Mobilization Joint Physical Therapy Mobilization Joint 06099 08/13 JULIÁN PULIDO [facility] Physical Therapy: ___ Se ion Segments, 15 Minutes Each Physical Therapy: ___ Session Segments, 15 Minutes Each 34355 08/13 JULIÁN PULIDO [facility] Physical Therapy Service Evaluation Low Complexity Physical Therapy Service Evaluation Low Complexity 96528 08/11 ARVIND HERNANDEZ [facility] Arthrocentesis Injection Of Acromioclavicular Joint Arthrocentesis Injection Of Acromioclavicular Joint 71941 06/27 ALTA BRADFORD LEFT AC JOINT INJECTION PROCEDURE NOTE: Informed consent for left acromioclavicula r joint cortisone injection was obtained. We discussed the expectations of the injection as well as the risks, benefits and alternatives of steroid injection including, but not limited to, pain, bleeding, infection, bruising, lightheadedness, dizziness and nausea. Prospective benefits include alleviation of pain as well as increased motion. The AC joint was palpated and marked with a pen. The skin was prepped with alcohol and Betadine. Cutaneous anesthesia was obtained with ethyl chloride spray. A solution of 2 mL of 1% plain lidocaine was injected in the ac joint utilizing a 25-gauge needle. After the needle was withdrawn, the site was cleaned with alcohol and a sterile swab and a Band-Aid was applied. The patient tolerated the procedure well. There were no complications. The patient was not sedated and fully conscious for the injection. Prior to the injection, verification followed the [place] Protocol in the following manner: [X] A Time Out was performed prior to the procedure to confirm patient identification, injection site, and preparation of equipment. [X] The patient was identified using two patient identifiers. [X] Patient allergies were reviewed and verified. [X] The consent was completed and verified for the planned procedure, site, and laterality. [X] The site was marked or the physician was continuously with the patient following discussion and consent. [facility] ECG Interpretation And Report Only ECG Interpretation And Report Only [id number] 05/05 HARPER GOMEZ 12/04/16 - NSR, RATE 76, NORMAL AXIS, INTERVALS AND COMPLEXES - NORMAL EKG [facility] Visual Function Screening Visual Function Screening 16944 06/18 /2019 GHAZAL JORGE LUIS E Near vision Reginald uncorrected: rt, lft and ou all J#1 20/15 at 14-15 color ishihara: 14/14 pass horizontal yee: 85 bilaterally [facility] Patient education, not otherwise cla ified, non-physician provider, group, per se ion 02/17 SHIRA HUNTER [facility] Threshold Audiogram (Pure Tone) Automated Threshold Audiogram (Pure Tone) Automated [id number] 02/17 SHIRA HUNTER No STS [facility] Audiometry Group Testing Audiometry Group Testing 27325 02/17 SHIRA HUNTER [facility] Preventive Medicine Administration Of Health Risk Questionnaire Patient-Focused Preventive Medicine Administration Of Health Risk Questionnaire Patient-Focused 18632 02/13 DEV DORAN(IDC) [facility] Non-Physician Phone Call To Pt/Provider Intermed (11-20 min) Non-Physician Phone Call To Pt/Provider Intermed (11-20 min) 66896 01/24 HARRY THOMPSON [facility] Corticosteroids Injection Intraarticular Left Shoulder Corticosteroids Injection Intraarticular Left Shoulder 09/26 JAIDEN DONIS [facility] Physical Therapy Service Re-Evaluation Physical Therapy Service Re-Evaluation 08386 04/22 LANCE LOVE [facility] Health And Behav A e mt Each 15 Min Initial A e ment Health And Behav Assessmt Each 15 Min Initial Assessment 53606 04/04 ALHAJI KNOX [facility] Corticosteroids Injection Intraarticular Small Joint Corticosteroids Injection Intraarticular Small Joint 03/20 JAIDEN DONIS [facility] Taping Shoulder Taping Shoulder 24834 03/20 BATSHEVA OLIVEIRA [facility] Physical Therapy Service Re-Evaluation Physical Therapy Service Re-Evaluation 28517 03/20 BATSHEVA OLIVEIRA [facility] Preventive Medicine Administration Of Health Risk Questionnaire Patient-Focused Preventive Medicine Administration Of Health Risk Questionnaire Patient-Focused 63101 02/18 BRANNON MCKEON [facility] Phys Therapy Education Self Care Training - Per 15 Minutes Phys Therapy Education Self Care Training - Per 15 Minutes 56229 02/05 LINDA ALMONTE [facility] Physical Therapy Service Re-Evaluation Physical Therapy Service Re-Evaluation 30572 02/05 LINDA ALMONTE [facility] Non-Physician Phone Call To Pt/Provider Intermed (11-20 min) Non-Physician Phone Call To Pt/Provider Intermed (11-20 min) 01817 01/31 CAROL REILLY [facility] A isted Exercises For ROM Assisted Exercises [place] ROM 69102 01/30 DAILY BETHEA Mobilization Soft Ti ue Mobilization Soft Tissue 64656 01/22 ANDREW KAN PT A e ment Kinetic Training PT Assessment Kinetic Training 83803 01/22 ANDREW KAN ECG Interpretation And Report Only ECG Interpretation And Report Only 61661 01/21 KELLY PRINCE Ophthalmological New Patient Start Comprehensive Care Ophthalmological New Patient Start Comprehensive Care 80289 01/17 TRAMAINE NORMAN Determination Of Refractive State Determination Of Refractive State 20910 01/17 TRAMAINE NORMAN Mobilization Soft Ti ue Mobilization Soft Tissue 91629 01/15 NAN CABA Physical or manipulative therapy performed for maintenance rather than druze 01/15 NAN CABA PT A e ment Kinetic Training Each Additional 15 Minutes PT Assessment Kinetic Training Each Additional 15 Minutes 35003 01/15 NAN CABA Physical or manipulative therapy performed for maintenance rather than druze 01/10 LAINA HUTCHISON A isted Exercises For ROM Assisted Exercises For ROM 09794 01/10 LAINA HUTCHISON Physical or manipulative therapy performed for maintenance rather than druze 01/03 LANCE LOVE PT A e ment Kinetic Training PT Assessment Kinetic Training 53102 01/03 LANCE LOVE Physical Therapy Service Evaluation Moderate Complexity Physical Therapy Service Evaluation Moderate Complexity 31435 01/03 LANCE LOVE Hepatitis A Vaccine Adult Dosage (Intramuscular Use) Hepatitis A Vaccine Adult Dosage (Intramuscular Use) 77351 07/30 BHAVANA JARQUIN Hep A (Adult); Series #: 2; 1.0 mL; IM; Left Arm; Mfg: Dandelion; Lot: [id number]; VIS given (Giuliana: 05/31/2016). French Human Papilloma Virus Vaccine, Nonavalent Human Papilloma Virus Vaccine, Nonavalent 1068207/30 BHAVANA JARQUIN HPV9; Series #: 2; .5 mL; IM; Left Arm; Mfg: Merck; Lot: [id number]; VIS given (Giuliana: 10/13/2016). DoD Immunization Administration By Injection, One Vaccine Immunization Administration By Injection, One Vaccine 8671807/30 BHAVANA JARQUIN Immunization Administration By Injection, Each Additional Vaccine Immunization Administration By Injection, Each Additional Vaccine 0611807/30 BHAVANA JARQUIN [facility] ECG 12-Lead With Interpretation And Report ECG 12-Lead With Interpretation And Report 79276 12/08 KAELYNELY STUBBS French Skin Test Anergy Tuberculin Intradermal Skin Test Anergy Tuberculin Intradermal 29395 12/07 KODI SANCHEZ IPPD; Series #: 1; .1 mL; ID; Left Arm; Mfg: Sanofi Pasteur; Lot: [id number]; VIS given. DoD Physician Supervised Injection Intramuscular Antibiotic Physician Supervised Injection Intramuscular Antibiotic 44580 12/01 JOSH YEE Injection, penicillin g benzathine, 100,000 units 12/01 JOSH YEE Vaccines Adenovirus Type 7 Live, For Oral Use Vaccines Adenovirus Type 7 Live, For Oral Use 28072 12/01 JOSH YEE Immunization Admin Intranasal / Oral Each Additional Vaccine Immunization Admin Intranasal / Oral Each Additional Vaccine 07322 12/01 JOSH YEE Vaccines Adenovirus Type 4 Live, For Oral Use Vaccines Adenovirus Type 4 Live, For Oral Use 72687 12/01 JOSH YEE Influenza Split Virus Vaccine 0.5mL Dosage Intramuscular Influenza Split Virus Vaccine 0.5mL Dosage Intramuscular 73275 12/01 JOSH YEE Immunization Administration By Injection, One Vaccine Immunization Administration By Injection, One Vaccine 8525812/01 JOSH YEE Immunization Administration By Injection, Each Additional Vaccine Immunization Administration By Injection, Each Additional Vaccine 3224512/01 JOSH YEE Hepatitis A Vaccine Adult Dosage (Intramuscular Use) Hepatitis A Vaccine Adult Dosage (Intramuscular Use) 83305 12/01 JOSH YEE Hep A (Adult); Series #: 1; .5 mL; IM; Left Arm; Mfg: SmithKline; Lot: [id number]; VIS given (Giuliana: 05/31/2016). [facility] Meningococcal Polysaccharide Diphtheria Toxoid Conjugate Vaccine 12/01 JOSH YEE Meningococcal MCV4P; Series #: 1; .5 mL; IM; Left Arm; Mfg: Sanofi Pasteur; Lot: [id number]; VIS given (Giuliana: 02/10/2016). [facility] Tdap Vaccine Tdap Vaccine 37437 12/01 JOSH YEE Tdap; Series #: 1; .5 mL; IM; Right Arm; Mfg: Other; Lot: [id number]; VIS given (Giuliana: 01/05/15). [facility] Patient education, not otherwise cla ified, non-physician provider, group, per se ion 12/01 SHIRA BLANC [facility] Screening papanicolaou smear; obtaining, preparing and conveyance of cervical or vaginal smear to laboratory 12/01 CALI MARIE Visual Function Screening Visual Function Screening 38065 11/30 SORIN HAIRSTON Threshold Audiogram (Pure Tone) Threshold Audiogram (Pure Tone) 58566 11/30 PILY ARIZA Audiometry Group Testing Audiometry Group Testing 22213 11/30 PILY ARIZA Non-Physician Phone Call To Pt/Provider Intermed (11-20 min) Non-Physician Phone Call To Pt/Provider Intermed (11-20 min) 81330 02/02 TONIE HWANG [facility] Physical Therapy: ___ Se ion Segments, 15 Minutes Each Physical Therapy: ___ Session Segments, 15 Minutes Each 94737 01/05 SKINNY CEDENO Physical Therapy Service Re-Evaluation Physical Therapy Service Re-Evaluation 64835 01/05 SKINNY CEDENO Taping Shoulder Taping Shoulder 49546 01/01 MARTHA LUCIO [facility] Physical Therapy: ___ Se ion Segments, 15 Minutes Each Physical Therapy: ___ Session Segments, 15 Minutes Each 37989 01/01 MARTHA LUCIO [facility] Physical Therapy: ___ Se ion Segments, 15 Minutes Each Physical Therapy: ___ Session Segments, 15 Minutes Each 15597 12/31 MARTHA LUCIO R [facility] Physical Therapy: ___ Se ion Segments, 15 Minutes Each Physical Therapy: ___ Session Segments, 15 Minutes Each 75759 12/25 MARTHA LUCIO R [facility] Physical Therapy: ___ Se ion Segments, 15 Minutes Each Physical Therapy: ___ Session Segments, 15 Minutes Each 51417 12/17 MARTHA LUCIO R [facility] Physical Therapy: ___ Se ion Segments, 15 Minutes Each Physical Therapy: ___ Session Segments, 15 Minutes Each 47842 12/12 MARTHA LUCIO R [facility] Physical Therapy Service Re-Evaluation Physical Therapy Service Re-Evaluation 40483 12/05 ARVIND HERNANDEZ [facility] Physical Therapy: ___ Se ion Segments, 15 Minutes Each Physical Therapy: ___ Session Segments, 15 Minutes Each 84141 12/03 MARTHA LUCIO R [facility] Physical Therapy: ___ Se ion Segments, 15 Minutes Each Physical Therapy: ___ Session Segments, 15 Minutes Each 90654 11/28 MARTHA LUCIO R [facility] Modalities Cryotherapy Cold Packs Modalities Cryotherapy Cold Packs 80187 11/28 MARTHA LUCIO R [facility] Physical Therapy: ___ Se ion Segments, 15 Minutes Each Physical Therapy: ___ Session Segments, 15 Minutes Each 12570 11/24 MARTHA LUCIO R [facility] Modalities Cryotherapy Cold Packs Modalities Cryotherapy Cold Packs 64884 11/24 NAVEEDMARTHA Stephens R [facility] Modalities Cryotherapy Cold Packs Modalities Cryotherapy Cold Packs 86640 11/19 DAWSON STARK [facility] Physical Therapy: ___ Se ion Segments, 15 Minutes Each Physical Therapy: ___ Session Segments, 15 Minutes Each 92138 11/19 DAWSON STARK [facility] Postoperative Visit, Without Charge Postoperative Visit, Without Charge 67710 11/18 ALTA BRADFORD [facility] Physical Therapy Service Re-Evaluation Physical Therapy Service Re-Evaluation 67694 11/13 ARVIND HERNANDEZ [facility] Modalities Cryotherapy Cold Packs Modalities Cryotherapy Cold Packs 21875 11/10 NAVEED MARTHA R [facility] Physical Therapy: ___ Se ion Segments, 15 Minutes Each Physical Therapy: ___ Session Segments, 15 Minutes Each 42104 11/10 NAVEEDMARTHA Stephens [facility] Modalities Cryotherapy Cold Packs Modalities Cryotherapy Cold Packs 32324 11/07 NAVEED MARTHA Smith [facility] Physical Therapy: ___ Se ion Segments, 15 Minutes Each Physical Therapy: ___ Session Segments, 15 Minutes Each 27549 11/07 NAVEED MARTHAHER [facility] Modalities Cryotherapy Cold Packs Modalities Cryotherapy Cold Packs 06758 10/31 NAVEED MARTHAHER [facility] Physical Therapy: ___ Se ion Segments, 15 Minutes Each Physical Therapy: ___ Session Segments, 15 Minutes Each 02138 10/31 NAVEED MARTHAHER [facility] Modalities Cryotherapy Cold Packs Modalities Cryotherapy Cold Packs 32789 10/28 NAVEED MARTHA R [facility] Physical Therapy: ___ Se ion Segments, 15 Minutes Each Physical Therapy: ___ Session Segments, 15 Minutes Each 81307 10/28 NAVEED MARTHAHER [facility] Physical Therapy: ___ Se ion Segments, 15 Minutes Each Physical Therapy: ___ Session Segments, 15 Minutes Each 63624 10/24 NAVEED MARTHA R [facility] Physical Therapy Mobilization Joint Physical Therapy Mobilization Joint 94971 10/20 NAVEED MARTHA R [facility] Physical Therapy: ___ Se ion Segments, 15 Minutes Each Physical Therapy: ___ Session Segments, 15 Minutes Each 80464 10/20 NAVEED MARTHAHER [facility] Physical Therapy: ___ Se ion Segments, 15 Minutes Each Physical Therapy: ___ Session Segments, 15 Minutes Each 88531 10/16 NAVEED MARTHA R [facility] Physical Therapy Service Re-Evaluation Physical Therapy Service Re-Evaluation 12104 10/14 ARVIND HERNANDEZ [facility] Physical Therapy Mobilization Joint Physical Therapy Mobilization Joint 58267 10/08 NAVEED MARTHA R [facility] Physical Therapy: ___ Se ion Segments, 15 Minutes Each Physical Therapy: ___ Session Segments, 15 Minutes Each 86290 10/08 NAVEED MARTHAHER [facility] Modalities Cryotherapy Cold Packs Modalities Cryotherapy Cold Packs 90813 10/06 TERESE JOHNSON [facility] Physical Therapy Mobilization Joint Physical Therapy Mobilization Joint 65563 10/06 TERESE JOHNSON Physical Therapy: ___ Se ion Segments, 15 Minutes Each Physical Therapy: ___ Session Segments, 15 Minutes Each 64151 10/06 TERESE JOHNSON Physical Therapy Mobilization Joint Physical Therapy Mobilization Joint 66825 10/03 MARTHA LUCIO Physical Therapy: ___ Se ion Segments, 15 Minutes Each Physical Therapy: ___ Session Segments, 15 Minutes Each 12828 10/03 MARTHA LUCIO Levonorgestrel-rel easing intrauterine contraceptive system (Mirena), 52 mg 10/02 SKINNY PUENTE [facility] Intrauterine Device (IUD) Insertion Gynecologic Services Intrauterine Device (IUD) Insertion 70636 10/02 SKINNY PUENTE [facility] Intrauterine Device (IUD) Removal Gynecologic Services Intrauterine Device (IUD) Removal 21668 10/02 SKINNY PUENTE Test Test 58190 10/02 SKINNY PUENTE Modalities Cryotherapy Cold Packs Modalities Cryotherapy Cold Packs 28030 09/30 TERESE JOHNSON Physical Therapy: ___ Se ion Segments, 15 Minutes Each Physical Therapy: ___ Session Segments, 15 Minutes Each 90614 09/30 TERESE JOHNSON Physical Therapy: ___ Se ion Segments, 15 Minutes Each Physical Therapy: ___ Session Segments, 15 Minutes Each 20302 09/26 MARTHA LUCIO Postoperative Visit, Without Charge Postoperative Visit, Without Charge 43437 09/25 ALTA BRADFORD [facility] Modalities Cryotherapy Cold Packs Modalities Cryotherapy Cold Packs 56000 09/23 TERESE JOHNSON [facility] Physical Therapy: ___ Se ion Segments, 15 Minutes Each Physical Therapy: ___ Session Segments, 15 Minutes Each 48052 MARTHA LUCIO Screening papanicolaou smear; obtaining, preparing and conveyance of cervical or vaginal smear to laboratory JAKE JIMENEZ Physical Therapy Service Re-Evaluation Physical Therapy Service Re-Evaluation 16335 SKINNY CEDENO [facility] Waiver services; not otherwise specified (NOS) MARTHA LUCIO Preventive Medicine Administration Of Health Risk Questionnaire Patient-Focused Preventive Medicine Administration Of Health Risk Questionnaire Patient-Focused 53216 ALPHONSE MELCHOR [facility] Non-Physician Phone Call To Pt/Provider Intermed (11-20 min) Non-Physician Phone Call To Pt/Provider Intermed (11-20 min) 58523 ALPHONSE MELCHOR [facility] Brief communication technology-based service, e.g. virtual check-in, by a physician or other qualified health care profjamie brar who can report evaluation and management services, provided to an established patient, not originating from a related E/M service provided within the previous 7 days nor leading to an E/M service or procedure within the next 24 hours or soonest available appointment; 5-10 minutes of medical discu ion CHARISSE SETH V [facility] Physical Therapy Service Evaluation Moderate Complexity Physical Therapy Service Evaluation Moderate Complexity 96445 SARA XIE [facility] Patient Counseling Medical Management Individual Patient Patient Counseling Medical Management Individual Patient 41452 ANTOINETTE CRUZ Stacy [facility] Musculoskeletal Needle Insertion Without Injection 1 Or 2 Muscles Musculoskeletal Needle Insertion Without Injection 1 Or 2 Muscles 14299 SARA XIE [facility] Vaccine SARS-CoV-2 DNA Obi Protein Ad26 Preservative Free 5x10*10vp/0.5mL IM Vaccine SARS-CoV-2 DNA Obi Protein Ad26 Preservative Free 5x10*10vp/0.5mL IM 17390 MATHIEU HARMON COVID-19 Abi; Series #: 1; 0.5 mL; IM; Right Arm; Mfg: Mirifice; Lot: [id number]; VIS given (Giuliana: 12/13/2020). [facility] Vaccine SARS-CoV-2 DNA Obi Protein Ad26 Preservative Free 5x10*10vp/0.5mL IM Single Dose Vaccine SARS-CoV-2 DNA Obi Protein Ad26 Preservative Free 5x10*10vp/0.5mL IM Single Dose 0031A MATHIEU HARMON [facility] Immunization Administration By Injection, One Vaccine Immunization Administration By Injection, One Vaccine 53939 MATHIEU HARMON [facility] Skin Biopsy Technique Shave Single Lesion Skin Biopsy Technique Shave Single Lesion 35300 GEORGE PETERSON [facility] Threshold Audiogram (Pure Tone) Automated Threshold Audiogram (Pure Tone) Automated 0208T KATI CABA I [facility] ECG Performance of Tracing Only ECG Performance of Tracing Only 87274 KATI CABA I PRIOR TO ADMINISTRATION, THE INDIVIDUAL WAS MADE AWARE OF THE IMPORTANCE OF TESTING IT PERTAINED TO THE DUTIES RELATED TO THE JOB. THE INDIVIDUAL VOICED AN UNDERSTANDING AND A WILLINGNESS TO COMPLY. [facility] Visual Function Screening Visual Function Screening 83511 KATI CABA I PRIOR TO TESTING, THE INDIVIDUAL WAS MADE AWARE OF ITS IMPORTANCE A SCREENING TOOL WHICH WILL BE USED TO MONITOR FOR SIGNIFICANT VISUAL CHANGES WHICH MIGHT INDICATE FURTHER VISUAL ACUITY TESTING. THE INDIVIDUAL VOICED AN UNDERSTANDING AND A WILLINGNESS TO COOPERATE WITH CURRENT TESTING. [facility] Motor - Performing Exam - Extremity (not hand) Motor - Performing Exam - Extremity (not hand) 38580 GOURDINE, JEFF CHERAE [facility] Range Of Motion Evaluation Of Extremity Range Of Motion Evaluation Of Extremity 29408 GOURDINE, JEFF CHERAE [facility] Impre ion casting of a foot performed by a practitioner other than the lithographic press feeder of the orthotic GOURDINE, JEFF CHERAE [facility] Physician Supervised Ordering / Handling / Fitting Patient Devices Physician Supervised Ordering / Handling / Fitting Patient Devices 02094 GOJOCELYNDINE, JEFF CHERAE [facility] Influenza Split Virus Vaccine IM Preserv Free 0.5mL Dosage Quadrivalent Influenza Split Virus Vaccine IM Preserv Free 0.5mL Dosage Quadrivalent 81391 JANELLE YOO Influenza, Inj., quad., preservative free; Series #: 1; 0.5 mL; IM; Left Arm; Mfg: Seqirus; Lot: [id number]; VIS given (Giuliana: 06/17/2021). [facility] Vaccine SARS-CoV-2 DNA Obi Protein Ad26 Preservative Free 5x10*10vp/0.5mL IM Vaccine SARS-CoV-2 DNA Obi Protein Ad26 Preservative Free 5x10*10vp/0.5mL IM 88552 HIRAM VINCENT COVID-19 Abi; Series #: 2; 0.5 mL; IM; Left Arm; Mfg: Abi; Lot: [id number]. [facility] Physical Therapy Service Evaluation Low Complexity Physical Therapy Service Evaluation Low Complexity 43357 SARA XIE Mobilization Soft Ti ue Mobilization Soft Tissue 64195 SARA XIE Ophthalmological New Patient Start Comprehensive Care Ophthalmological New Patient Start Comprehensive Care 47547 BJ ECHEVARRIA Determination Of Refractive State Determination Of Refractive State 29746 BJ ECHEVARRIA Influenza Split Virus Vaccine IM Preserv Free 0.5mL Dosage Quadrivalent Influenza Split Virus Vaccine IM Preserv Free 0.5mL Dosage Quadrivalent 19502 THEA RUIZ Influenza, Inj., quad., preservative free; Series #: 1; 0.5 mL; IM; Left Arm; Mfg: Dandelion; Lot: [id number]; VIS given (Giuliana: 06/17/2021). [facility] No data available for this section Ambulato ry Pharmacy Social History Combined list of available smoking, tobacco, and other social history from Department of Defense and Veterans Affairs facilities. Social History Type Response Date Comment Sourc e Tobacco smoking status NHIS [facility]ACCO NEVER USED 07/24/2024 [facility] Female 11/11/2020 Ambulatory Pha rmacy This section is an empty social history section. [facility] Sexual Orientation Ambula tory Pharmacy Gender identity Ambulator y Pharmacy Assessment and Plan Combined list of future care activities from Department of Defense and Veterans Affairs facilities (e.g., assessment and plan notes, appointments, orders, and referrals). Additional future care activities may be listed in the Plan of Care section. 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 Health History?completed? Respirator Questionnaire?? completed? Vital Signs?? completed? Visual Acuity and Horizontal Field of Vision?? completed? Physical Exam? completed? Spirometry? completed? Audiogram?? completed? Chest X-Ray?? completed? EKG? completed? Lab studies:??CBC, CMP, UA, Lipid Panel, HIV screening Immunizations:??Tetanus, Hepatitis B, Hepatitis A?? ?up to date?? ? The patient participated in a 60 minuted group briefing to include education on hearing protections, heat/hydration, proper use of sunscreen, nutrition, exercise, and supplement use. ? The member completed a respiratory fitness questionnaire and upon my review the member is: ? ? 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 ACTIVE DUTY REVIEW ? Member was offered a list of their active medications and? ? ?declinedat this time ? WWQ:? ?yes?Fit for Duty:??yes?Meets Medical Standards Directory (MSD):??yes?Fitness assessment exemption (469) was needed/granted:??no 10/23/2024 Ambulatory Pharmacy Plan of Care List of future care activities from Department of Veterans Affairs facilities. Additional future care activities may be listed in the Assessment and Plan section. Date/Time Care Activity Care Activity Detail Facili ty 10/06/2024 Consult Order [facility] Cons Equipment [facility] Functional Status Combined list of recent functional and cognitive assessments recorded at [facility] of Defense and Veterans Affairs (VA).VA Functional [place] Measurement (FIM) Scale: 1 = Total Assistance (Subject = 0% +), 2 = Maximal Assistance (Subject = 25% +), 3 = Moderate Assistance (Subject = 50% +), 4 = Minimal Assistance (Subject = 75% +), 5 = Supervision, 6 = Modified [place] (Device), 7 = Complete [place] (Timely, Safely). Assessment Date/Time Source Assessment Type Assessment Skill Assessment Score Assessment Details No data available for this section
--- OUTSIDE RECORDS SUMMARY | 2024-10-22 22:46 | XMS_ITS | Encounter Summary ---
Author Name [facility] ([place]) Organization [facility] ([place] Address [address] [place] [id number] Care Team Providers Care Senior Advisor Name Role Phone FILOMENA SCOTT Primary Care [...] TRICA RE DODA* Jun 16, 2024 DODA [id number] Luis Carlos DURBIN PATIENT [facility] [address] T Jun 16, 2024 [id number] Luis Carlos DURBIN PATIENT Selected Encounter This section includes the information on record at [place] for the Encounter. Date/Time Encounter Type Encounter Description Reason Provider Source Jul 24, 2024 11:37 AM Outpatient Encounter TELEPHONE PRIMARY CARE ICD-10-CM S43.132A Dislocation of l acromioclav jt, > 200% displacmnt, CONCHITA Wilkes E Encounter Template Text not used by [place] Assessments - Encounter Diagnoses This section includes the primary and secondary diagnoses documented for the Encounter. Date/Time Primary/Secondary Diagnosis Diagnosis Name Provider Source Jul 24, 2024 11:37 AM PRIMARY Dislocation of l acromioclav jt, > 200% displacmnt, CONCHITA Wilkes [facility] Plan of Treatment: Future Appointments (+ 6 months) and Future Tests (+/- 45 days) The Plan of Treatment section includes future care activities for the patient from all [place] [facility]. This section includes future appointments and future orders which are active, pending or scheduled. Future Appointments This section includes appointments that were scheduled to occur 6 months from the date of the Encounter, up to a maximum of 20 appointments. The data comes from all [place] treatment [facility]. Appointment Date/Time Appointment Type Appointme nt Facility Name Jul 29, 2024 10:00 AM AMBULATORY - MEDICINE [facility] Jul 29, 2024 11:45 AM [facility] Aug 01, 2024 02:30 PM AMBULATORY - MEDICINE [facility] Oct 06, 2024 10:00 AM AMBULATORY - MEDICINE [facility] Active, Pending, and Scheduled Orders This section includes a listing of several types of active, pending, and scheduled orders, including clinic medications orders, diagnostic test orders, procedure orders and consult orders; where the start date of the order is 45 days before the date of the Encounter or 45 days after the date of theEncounter. The data comes from all [place] treatment facilities. Test Date/Time Test Type Test Details Facility Name Jul 29, 2024 01:03 PM Consult Order [facility] Cons Bark Tanner's Choice [facility] Lab Results: +/- 30 days of the encounter This section includes the Chemistry and Hematology Lab Results on record with [place] for the patient. Radiology Reports and Pathology Reports are provided separately, in subsequent sections. Lab Results This section contains the Chemistry/Hematology Results that were resulted 30 days before or 30 daysafter the date of the Encounter. Date/Time Source Result Type Result - Unit Interpretation Reference Range Comment Jul 29, 2024 11:38 AM [facility] T-SPOT TB PANEL Specimen Type: BLOOD [...] For additional information, please refer to [email or web address] [email or web address]/faq/KPG848 (This link is being provided for informational/ educational purposes only.) Test Performed by [employer] [place], [employer] [facility], [address] [place] [address] Patel Tamez M.D., Ph.D., Director of Laboratories , [place] [id number] TEST PERFORMED AT: , Ordering Provider: FILOMENA SCOTT Report Released Date/Time: Jul 29, 2024 10:55 AM Reporting Lab: [address] [address] Performing Lab: [facility] [address] [address] B-APHV-[id number] (o) Negative Negative T-SPOT-PNLA 0 T-SPOT-PNLB 0 Q-IGEV-HBZOPQ L Passed T-JPVT-LESTYP L Passed Jul 29, 2024 11:38 AM [facility] MMRV (IGG) IMMUNE STATUS PANEL Specimen [...] Jul 29, 2024 10:55 AM Reporting Lab: [facility] [address] [facility] [address] Performing Lab: [facility] [address] [facility] [address] MEASLES (IGG) REACTIVE SEE COMMENT MUMPS (IGG) REACTIVE SEE COMMENT RUBELLA (IGG) REACTIVE SEE COMMENT VARICELLA (IGG) REACTIVE SEE COMMENT Jul 29, 2024 11:38 AM [facility] BASIC METABOLIC PANEL (non-fasting) Specimen Type: SERUM No comment entered. Ordering Provider: FILOMENA SCOTT Report Released Date/Time: Jul 29, 2024 10:39 AM Reporting Lab: [address] [address] Performing Lab: [address] [address] UREA NITROGEN 12 mg/dL 7-25 GLUCOSE 94 mg/dL 65-100 SODIUM 141 mmol/L 135-145 POTASSIUM 4.0 mmol/L 3.5-5.0 CHLORIDE 106 mmol/L 100-110 CO2 26 meq/L 20-30 CREATININE, Serum 0.82 mg/dL 0.50-1.40 eGFR(CKD-EPI 2020) >90 mL/min >60 Jul 29, 2024 11:38 AM [facility] LIPID PANEL FASTING Specimen Type: SERUM No comment entered. Ordering Provider: FILOMENA SCOTT Report Released Date/Time: Jul 29, 2024 10:39 AM Reporting Lab: [address] [address] Performing Lab: [address] [address] CHOLESTEROL 159 mg/dL TRIGLYCERIDE 66 mg/dL 0-150 LDL calculated 89 mg/dL 0-129 CHOL/HDL 2.8 HDL CHOLESTEROL 57 mg/dL 40-60 Jul 29, 2024 11:38 AM [facility] LIVER FUNCTION Specimen Type: SERUM No comment entered. Ordering Provider: FILOMENA SCOTT Report Released Date/Time: Jul 29, 2024 10:39 AM Reporting Lab: [address] [address] Performing Lab: [address] [address] PROTEIN,TOTAL 6.9 g/dL 6.0-8.3 ALBUMIN 4.5 g/dL 3.5-5.0 ALKALINE PHOSPHATASE 82 U/L 40-150 AST 13 U/L 5-34 ALT 9 U/L BILIRUBIN, TOTAL 1.4 mg/dL H 0.2-1.2 BILIRUBIN, DIRECT 0.5 mg/dL 0-0.5 Jul 29, 2024 11:38 AM [facility] CBC AND DIFF (AUTO) Specimen Type: BLOOD No comment entered. Ordering Provider: FILOMENA SCOTT Report Released Date/Time: Jul 29, 2024 10:39 AM Reporting Lab: [facility] [address] [facility] [address] Performing Lab: [facility] [address] [facility] [address] WBC 4.06 10*3/uL L 4.50-11.00 RBC 3.93 [...] 10*3/uL 0.00-0.00 Jul 29, 2024 11:38 AM [facility] HEMOGLOBIN A1C PANEL Specimen Type: BLOOD [...] Jul 29, 2024 10:39 AM Reporting Lab: [address] [address] Performing Lab: [address] [address] HEMOGLOBIN A1C 4.9 4.0-5.6 Jul 29, 2024 11:38 AM [facility] TSH Specimen Type: SERUM No comment entered. Ordering Provider: FILOMENA SCOTT Report Released Date/Time: Jul 29, 2024 10:39 AM Reporting Lab: [address] [address] Performing Lab: [address] [address] TSH 0.80 u[IU]/mL 0.35-5.00 Jul 29, 2024 11:38 AM [facility] HEPATITIS C ANTIBODY (HCV)-ARC Specimen Type: SERUM Comment: Hep C Ab: No HCV antibody detected. If recent infection is suspected or other evidence suggests HCV infection, consider HCV nucleic acid testing Ordering Provider: FILOMENA SCOTT Report Released Date/Time: Jul 29, 2024 11:10 AM Reporting Lab: [address] [address] Performing Lab: [address] [address] HEPATITIS C ANTIBODY NON-REACTIVE NON-REACTI VE Social History: Smoking Status (Most current) and Tobacco Use (All prior to encounter date) This section includes the most current, and the historical, smoking and tobacco- related health factors from the [place] facility where the Encounter took place. Current Smoking Status This section includes the most current smoking, or tobacco-related health factor, from the [place] facility where the Encounter took place. Date/Time Current Smoking Status Comment Facil ity Jul 24, 2024 11:37 AM VA-TOBACCO NEVER USED [facility] Radiology Reports: +/- 30 days of [...] the Encounter. The data comes from all [place] treatment facilities. Date/Time Radiology Report Provider Source Jul 29, 2024 11:[address] MAXILLOFACIAL W/O CONT: MUKESH DURBIN [id number] -1990 F Exm Date: JUL 29, 2024@11:56 Req Phys: FILOMENA SCOTT Pat Loc: CWM/NO/PACT 5 (Req'g Loc) Img Loc: [facility]/CT Service: Unknown Screen: [place] [address] (Case 92 COMPLETE) CT MAXILLOFACIAL W/O CONT (CT Detailed) CPT:69343 Reason for Study: right jaw pain and zygomatic arch pain Clinical History: Post rugby injury last month with head on collision on right side of skull and cheek pain with opening jaw right side Report Status: Verified Date Reported: JUL 31, 2024 Date Verified: JUL 31, 2024 Inspector And Mender E-Sig: Report: CT MAXILLOFACIAL W/O CONT right [...] tissue swelling. READING PHYSICIAN: Alen Guzman MD -[id number] 07/31/2024 7:21 [facility] [phone] (For Medical Practitioner Use Only) Attention Patients / Veterans: If you have questions or concerns about these test results, please contact your ordering provider or primary care team. Primary Diagnostic Code: NO ALERT REQUIRED Primary Interpreting Staff: RADIOLOGY,OUTSIDE SERVICE, Staff Physician / RADIOLOGY,OUTSIDE SERVICE [facility] Jul 29, 2024 11:55 AM ANKLE 3 OR MORE VIEWS (RIGHT): MUKESH DURBIN [id number] -1990 F Exm Date: JUL 29, 2024@11:55 Req Phys: FILOMENA SCOTT Pat Loc: CWM/NO/PACT 5 (Req'g Loc) Img Loc: [facility] 1 Service: Unknown Screen: Patient [place] [address] (Case 91 COMPLETE) ANKLE 3 OR MORE VIEWS (RIGHT) (RAD Detailed) CPT:29968 Reason for Study: Right medial ankle pain Clinical History: Slammed manager publishing door on right ankle, mild ecchymosis also with small firm pea size tender nodule on medial right ankle just above malleolus Report Status: Verified Date Reported: JUL 29, 2024 Date Verified: JUL 29, 2024 Inspector And Mender E-Sig:/ES/JEFFERY GARCIA JR Report: Study: AP, lateral [...] Primary Interpreting Staff: JEFFERY GARCIA JR, Radiologist (Inspector And Mender) /JEFFERY CASTILLO JR [facility] Jul 29, 2024 11:55 AM SHOULDER,COMPLETE(RIGHT): MUKESH DURBIN [id number] -1990 F Exm Date: JUL 29, 2024@11:55 Req Phys: FILOMENA SCOTT Pat Loc: CWM/NO/PACT 5 (Req'g Loc) Img Loc: [facility] 1 Service: Unknown Screen: [place] [address] (Case 90 COMPLETE) SHOULDER,COMPLETE(RIGHT) (RAD Detailed) CPT:17291 Reason for Study: Right shoulder pain Clinical History: Post rugby injury last month Report Status: Verified Date Reported: JUL 29, 2024 Date Verified: JUL 29, 2024 Inspector And Mender E-Sig:/ES/JEFFERY GARCIA JR Report: Study: AP internally [...] Primary Interpreting Staff: JEFFERY GARCIA JR, Radiologist (Inspector And Mender) /JEFFERY CASTILLO JR [facility] Encounter Notes: All associated encounter notes This section contains the clinical notes associated to the Encounter. Date/Time Encounter Note(s) Provider Source Jul 24, 2024 11:39 AM TELEPHONE ENCOUNTER NOTE: LOCAL TITLE: TELEPHONE NOTE/PA STANDARD TITLE: TELEPHONE ENCOUNTER NOTE DATE OF NOTE: JUL 24, 2024@11:39 ENTRY DATE: JUL 24, 2024@11:39:38 AUTHOR: CONCHITA CEDENO EXP COSIGNER: URGENCY: STATUS: COMPLETED INITIAL CONTACT FROM MEDICAL PROVIDER Would like to discuss at first appointment Labs and update of immunizations Right shoulder and right ankle injury Service Connection/Rated Disabilities: Service Connected Disabilities with % Eligibility: NSC VERIFIED HISTORY: BRANCH OF SERVICE: [place] PERIOD OF SERVICE: [employer] (Jun 1990- ) SPECIFIC YEARS OF SERVICE 2016-, 23-present PAST MEDICAL HX: Problem List - Active - NONE FOUND PAST SURGICAL Hx: Left shoulder repair with distal clavicle excision Right Knee ACL repair Right Thumb tendon repair KDA: Patient has answered NKA Meds: Active Outpatient Medications (including Supplies): Ibuprofen prn IUD Mirena FAMILY Hx: MOM age 63 A&W DAD age 65 A&W Siblings : 3 older all A&W SOCIAL Hx: Single No children's No pets Hike, Rugby, snowboard Homelessness/Food Insecurity Screen: In the past 2 months, have you been living in stable housing that you own, rent, or stay in as part of a household? Yes - Living in stable housing. Are you worried or concerned that in the next 2 months you may NOT have stable housing that you own, rent, or stay in as part of a household? No - Not worried about housing near future [facility] [place] reports the following: Within the past 12 months, you worried whether your food would run out before you got money to buy more. Never true Within the past 12 months, the food you bought just didn't last and you didn't have money to get more. Never true Preferred Language: What is your, or your caregiver's preferred language for healthcare? Preferred Language: German Tobacco Use Screening: The patient has never used tobacco. Alcohol Use Screen (AUDIT-C): Alcohol Screen: SCREEN FOR ALCOHOL (AUDIT-C) An alcohol screening test (AUDIT-C) was negative (score=1). 1. How often did you have a drink containing alcohol in the past year? Consider a drink to be a 12 ounce can or bottle of regular beer, 8 ounces of malt liquor, a 5 ounce glass of table wine, or a 1.5 ounce shot of liquor (like scotch, gin, or vodka). Monthly or less 2. How many drinks containing alcohol did you have on a typical day when you were drinking in the past year? One or two drinks 3. How often did you have 4 or more drinks on one occasion in the past year? Never COVID-19 Immunization: Vaccine given previously - no written/electronic documentation available The patient was instructed to bring a copy of their COVID-19 vaccine information to their next appointment so that this can be accurately recorded in their [place] medical record. Dx: Left ACJ complete separation (3rd degree) TC 12 min /es/ CONCHITA NASCIMENTO MS,PA-C PHYSICIAN ASSISTANT GROCERY STORE MANAGER Signed: 07/24/2024 11:56 CONCHITA CEDENO [facility]
--- OUTSIDE RECORDS SUMMARY | 2024-10-22 22:46 | XMS_ITS | Encounter Summary ---
Author Name [facility] [place] Organization [facility] [place] [place] Address [address] [place] [id number] Care Team Providers Care Plant Electrical Engineer Name Role Phone FILOMENA SCOTT Primary Care [...] TRICA RE DODA* Jun 16, 2024 DODA [id number] Luis Carlos DURBIN PATIENT [facility] [address] T Jun 16, 2024 [id number] Luis Carlos DURBIN PATIENT Selected Encounter This section includes the information on record at [place] for the Encounter. Date/Time Encounter Type Encounter Description Reason Pro vider Source Jul 17, 2024 12:00 AM Outpatient Encounter EVENT (HISTORICAL) IHE Encounter Template Text not used by [place] Plan of Treatment: Future Appointments (+ 6 [...] 20 appointments. The data comes from all [place] treatment facilities. Appointment Date/Time Appointment Type Appointme nt Facility Name Jul 29, 2024 10:00 AM AMBULATORY - MEDICINE [place] [facility] [place] [facility] Jul 29, 2024 11:45 AM [facility] Aug 01, 2024 02:30 PM [facility] Oct 06, 2024 10:00 AM [facility] Active, Pending, and Scheduled Orders This section includes a listing of several types of active, pending, and scheduled orders, including clinic medications orders, diagnostic test orders, procedure orders and consult orders; where the start date of the order is 45 days before the date of the Encounter or 45 days after the date of theEncounter. The data comes from all [place] treatment facilities. Test Date/Time Test Type Test Details Facility Name Jul 29, 2024 01:03 PM Consult Order [facility] GENERAL Cons Adjunct Instructor In Economics's Choice [facility] Lab Results: +/- 30 days of the encounter This section includes the Chemistry and Hematology Lab Results on record with [place] for the patient. Radiology Reports and Pathology Reports are provided separately, in subsequent sections. Lab Results This section contains the Chemistry/Hematology Results that were resulted 30 days before or 30 daysafter the date of the Encounter. Date/Time Source Result Type Result - Unit Interpretation Reference Range Comment Jul 29, 2024 11:38 AM [facility] T-SPOT TB PANEL Specimen Type: BLOOD [...] For additional information, please refer to http://education .Stella & Dot/faq/JYX304 (This link is being provided for informational/ educational purposes only.) Test Performed by [facility] [place], [facility], [address] [place] [address] Patel Tamez M.D., Ph.D., Director of Laboratories , CLIA [id number] TEST PERFORMED AT: , Ordering Provider: FILOMENA SCOTT Report Released Date/Time: Jul 29, 2024 10:55 AM Reporting Lab: [facility] [address] [facility] [address] Performing Lab: [facility] [address] [address] S-[id number] (o) Negative Negative T-SPOT-PNLA 0 T-SPOT-PNLB 0 C-MVNW-QFVZLA L Passed M-YYUH-GKRTAJ L Passed Jul 29, 2024 11:38 AM [facility] MMRV (IGG) IMMUNE STATUS PANEL Specimen [...] 29, 2024 10:55 AM Reporting Lab: [address] [address] Performing Lab: [facility] [address] [facility] [address] MEASLES (IGG) REACTIVE SEE COMMENT MUMPS (IGG) REACTIVE SEE COMMENT RUBELLA (IGG) REACTIVE SEE COMMENT VARICELLA (IGG) REACTIVE SEE COMMENT Jul 29, 2024 11:38 AM [facility] BASIC METABOLIC PANEL (non-fasting) Specimen Type: SERUM No comment entered. Ordering Provider: FILOMENA SCOTT Report Released Date/Time: Jul 29, 2024 10:39 AM Reporting Lab: [address] [address] Performing Lab: [facility] [address] [facility] [address] UREA NITROGEN 12 mg/dL 7-25 GLUCOSE 94 mg/dL 65-100 SODIUM 141 mmol/L 135-145 POTASSIUM 4.0 mmol/L 3.5-5.0 CHLORIDE 106 mmol/L 100-110 CO2 26 meq/L 20-30 CREATININE, Serum 0.82 mg/dL 0.50-1.40 eGFR(CKD-EPI 2020) >90 mL/min >60 Jul 29, 2024 11:38 AM [facility] LIPID PANEL FASTING Specimen Type: SERUM No comment entered. Ordering Provider: FILOMENA SCOTT Report Released Date/Time: Jul 29, 2024 10:39 AM Reporting Lab: [facility] [address] [facility] [address] Performing Lab: [address] [address] CHOLESTEROL 159 mg/dL TRIGLYCERIDE 66 mg/dL 0-150 LDL calculated 89 mg/dL 0-129 CHOL/HDL 2.8 HDL CHOLESTEROL 57 mg/dL 40-60 Jul 29, 2024 11:38 AM [facility] LIVER FUNCTION Specimen Type: SERUM No comment entered. Ordering Provider: FILOMENA SCOTT Report Released Date/Time: Jul 29, 2024 10:39 AM Reporting Lab: [facility] [address] [facility] [address] Performing Lab: [address] [address] PROTEIN,TOTAL 6.9 g/dL 6.0-8.3 ALBUMIN 4.5 g/dL 3.5-5.0 ALKALINE PHOSPHATASE 82 U/L 40-150 AST 13 U/L 5-34 ALT 9 U/L BILIRUBIN, TOTAL 1.4 mg/dL H 0.2-1.2 BILIRUBIN, DIRECT 0.5 mg/dL 0-0.5 Jul 29, 2024 11:38 AM [facility] CBC AND DIFF (AUTO) Specimen Type: BLOOD No comment entered. Ordering Provider: FILOMENA SCOTT Report Released Date/Time: Jul 29, 2024 10:39 AM Reporting Lab: [facility] [address] [facility] [address] Performing Lab: [facility] [address] [facility] [address] WBC 4.06 10*3/uL L 4.50-11.00 RBC 3.93 [...] 10*3/uL 0.00-0.00 Jul 29, 2024 11:38 AM [facility] HEMOGLOBIN A1C PANEL Specimen Type: BLOOD [...] 29, 2024 10:39 AM Reporting Lab: [address] [address] Performing Lab: [address] [address] HEMOGLOBIN A1C 4.9 4.0-5.6 Jul 29, 2024 11:38 AM [facility] TSH Specimen Type: SERUM No comment entered. Ordering Provider: FILOMENA SCOTT Report Released Date/Time: Jul 29, 2024 10:39 AM Reporting Lab: [address] [address] Performing Lab: [address] [address] TSH 0.80 u[IU]/mL 0.35-5.00 Jul 29, 2024 11:38 AM [facility] HEPATITIS C ANTIBODY (HCV)-ARC Specimen Type: SERUM Comment: Hep C Ab: No HCV antibody detected. If recent infection is suspected or other evidence suggests HCV infection, consider HCV nucleic acid testing Ordering Provider: FILOMENA SCOTT Report Released Date/Time: Jul 29, 2024 11:10 AM Reporting Lab: [address] [address] Performing Lab: [address] [address] HEPATITIS C ANTIBODY NON-REACTIVE NON-REACTI VE Radiology [...] the Encounter. The data comes from all [facility] facilities. Date/Time Radiology Report Provider Source Jul 29, 2024 11:[address] MAXILLOFACIAL W/O CONT: MUKESH DURBIN LUDMILA [id number] -1990 F Exm Date: JUL 29, 2024@11:56 Req Phys: FILOMENA SCOTT Pat Loc: CWM/NO/PACT 5 (Req'g Loc) Img Loc: [facility]/CT Service: Unknown Screen: Patient answered [place] [address] (Case 92 COMPLETE) CT MAXILLOFACIAL W/O CONT (CT Detailed) CPT:60381 Reason for Study: right jaw pain and zygomatic arch pain Clinical History: Post rugby injury last month with head on collision on right side of skull and cheek pain with opening jaw right side Report Status: Verified Date Reported: JUL 31, 2024 Date Verified: JUL 31, 2024 Environmental Health Specialist E-Sig: Report: CT MAXILLOFACIAL W/O CONT right [...] tissue swelling. READING PHYSICIAN: Alen Guzman MD -[id number] 07/31/2024 7:21 [facility] National Teleradiology Program [phone] (For Medical Practitioner Use Only) Attention Patients / Veterans: If you have questions or concerns about these test results, please contact your ordering provider or primary care team. Primary Diagnostic Code: NO ALERT REQUIRED Primary Interpreting Staff: RADIOLOGY,OUTSIDE SERVICE, Staff Physician / RADIOLOGY,OUTSIDE SERVICE [facility] Jul 29, 2024 11:55 AM ANKLE 3 OR MORE VIEWS (RIGHT): MUKESH DURBIN [id number] -1990 F Exm Date: JUL 29, 2024@11:55 Req Phys: TYLER,FILOMENA CASPER Pat Loc: CWM/NO/PACT 5 (Req'g Loc) Img Loc: [facility] 1 Service: Unknown Screen: Patient answered no [place] [address] (Case 91 COMPLETE) ANKLE 3 OR MORE VIEWS (RIGHT) (RAD Detailed) CPT:42592 Reason for Study: Right medial ankle pain Clinical History: Slammed banquet steward door on right ankle, mild ecchymosis also with small firm pea size tender nodule on medial right ankle just above malleolus Report Status: Verified Date Reported: JUL 29, 2024 Date Verified: JUL 29, 2024 Environmental Health Specialist E-Sig:/ES/JEFFERY GARCIA JR Report: Study: AP, lateral [...] Primary Interpreting Staff: JEFFERY GARCIA JR, Radiologist (Environmental Health Specialist) /EAJEFFERY CARMONA JR [facility] Jul 29, 2024 11:55 AM SHOULDER,COMPLETE(RIGHT): YOHANAMUKESH PINON [id number] -1990 F Exm Date: JUL 29, 2024@11:55 Req Phys: TYLER,FILOMENA CASPER Pat Loc: CWM/NO/PACT 5 (Req'g Loc) Img Loc: [facility] 1 Service: Unknown Screen: Patient answered no [place] [address] (Case 90 COMPLETE) SHOULDER,COMPLETE(RIGHT) (RAD Detailed) CPT:48171 Reason for Study: Right shoulder pain Clinical History: Post rugby injury last month Report Status: Verified Date Reported: JUL 29, 2024 Date Verified: JUL 29, 2024 Environmental Health Specialist E-Sig:/ES/JEFFERY GARCIA JR Report: Study: AP internally [...] Primary Interpreting Staff: JEFFERY GARCIA JR, Radiologist (Environmental Health Specialist) /JEFFERY CASTILLO JR [facility] Encounter Notes: All associated encounter notes This section contains the clinical notes associated to the Encounter. Date/Time Encounter Note(s) Provider Source Jul 17, 2024 12:00 AM NONVA NOTE: LOCAL TITLE: NON-VA OUTPATIENT NOTES STANDARD TITLE: NONVA NOTE DATE OF NOTE: JUL 17, 2024 ENTRY DATE: AUG 18, 2024@14:05:41 AUTHOR: BRITTANY BERGER COSIGNER: URGENCY: STATUS: COMPLETED VistA Imaging - Scanned Document SCANNED DOCUMENT SIGNATURE NOT REQUIRED Electronically Filed: 08/18/2024 by: BRITTANY BERGER LICENSED PRACTICAL NURSE BRITTANY BERGER [facility]
--- OUTSIDE RECORDS SUMMARY | 2024-10-22 22:46 | XMS_ITS | Encounter Summary ---
Author Name [facility] [place] [facility] [place] Organization [facility] [place] Address [address] [place] [address] Care Team Providers Care Front End Software Developer Name Role Phone LETA VAZQUEZ Primary Care Provider Calvin ayala Insurance Providers: All historical and current Section [...] TRICA RE DODA* Jun 16, 2024 DODA [id number] Luis Carlos DURBIN PATIENT [facility] [address] T Jun 16, 2024 [id number] [phone] Luis Carlos DURBIN PATIENT Selected Encounter This section includes the information on record at [place] for the Encounter. Date/Time Encounter Type Encounter Description Reason Pro vider Source Oct 06, 2024 12:00 AM Outpatient Encounter EVENT (HISTORICAL) IHE Encounter Template Text not used by [place] Plan of Treatment: Future Appointments (+ 6 [...] of theEncounter. The data comes from all [facility]. Test Date/Time Test Type Test Details Facility Name Oct 06, 2024 12:57 PM Consult Order [facility] Cons Director Data Processing's Choice [facility] Lab Results: +/- 30 days of [...] Range Comment Oct 06, 2024 02:07 PM [facility] HCG QUAL, URINE Specimen Type: URINE Comment: Test performd by Leta Vazquez NP. [facility] Ordering Provider: LETA VAZQUEZ Report Released Date/Time: Oct 06, 2024 11:28 AM Reporting Lab: [address] [address] Performing Lab: [address] [address] HCG QUAL, URINE Negative NEGATIVE Pathology Reports: +/- 30 days of the [...] the Encounter. The data comes from all [facility]. Date/Time Pathology Report Provider Source Oct 16, 2024 01:52 PM LR CYTOPATHOLOGY REPORT: LOCAL TITLE: LR CYTOPATHOLOGY REPORT STANDARD TITLE: PATHOLOGY DIAGNOSTIC STUDY REPORT DATE OF NOTE: OCT 16, 2024@13:52:33 ENTRY DATE: OCT 16, 2024@13:52:33 AUTHOR: KRISTINE GREENE EXP COSIGNER: URGENCY: STATUS: COMPLETED $APHDR Reporting Lab: [facility] [CLIA# [id number]] [address] [place] [phone] - - - - - - - [...] (Received Oct 06, 2024 14:54): CERVICAL CYTOLOGY [id number] - - - - - - - [...] CLINICAL HX: LAST NILM WITH HPV COMMENTS: SILVIA ABREU HAS MIRENA IUD - - - - [...] Results should be correlated with clinical information. CPT:75412,67686 HPV REPORT PERFORMED BY: [facility] [CLIA# [id number]] [address] [place] [id number] HPV DNA, HIGH RISK TEST HPV16 NEG [...] 2024@13:52 Performing Laboratory: Cytology Report Performed By: [facility] [CLIA# [id number]] [address] [place] [address] $FTR - - - - - - [...] - - MUKESH DURBIN STANDARD FORM 515 ID:[id number] SEX:F :1990 AGE: 34 LOC:CWM/NO/PACT 5 PCP: Leta Vazquez /werner/ KRISTINE GREENE Signed: 10/16/2024 13:52 KRISTINE GREENE [facility]
--- OUTSIDE RECORDS SUMMARY | 2024-10-22 22:46 | XMS_ITS | Encounter Summary ---
Author Name [facility] ([place]) Organization [facility] ([place]) Address [address] [place] [id number] Care Team Providers Care Transformer Maker Name Role Phone TYLER FILOMENA Primary Care Provider Unavailabl e Insurance Providers: [...] TRICA RE DODA* Jun 16, 2024 DODA [id number] [phone] Luis Carlos DURBIN PATIENT [facility] [address] T Jun 16, 2024 [id number] Luis Carlos DURBIN PATIENT Selected Encounter This section includes the information on record at [place] for the Encounter. Date/Time Encounter Type Encounter Description Reason Provider Source Jul 29, 2024 01:23 PM CASE MANAGEMENT ADMIN PAT ACTIVTIES (MASNONCT) ICD-10-CM Z71.89 Other specified counseling ALLY SALVADOR [facility] Encounter Template Text not used by [place] Assessments - Encounter Diagnoses This section includes the primary and secondary diagnoses documented for the Encounter. Date/Time Primary/Secondary Diagnosis Diagnosis Name Provider Source Jul 29, 2024 02:16 PM PRIMARY Other specified counseling ALLY SALVADOR [facility] Plan of Treatment: Future Appointments (+ 6 months) and Future Tests (+/- 45 days) The Plan of Treatment section includes future care activities for the patient from all [place] treatmentfacilities. This section includes future appointments and future orders which are active, pending or scheduled. Future Appointments This section includes appointments that were scheduled to occur 6 months from the date of the Encounter, up to a maximum of 20 appointments. The data comes from all [facility]. Appointment Date/Time Appointment Type Appointme nt Facility Name Aug 01, 2024 02:30 PM AMBULATORY - MEDICINE [facility] Oct 06, 2024 10:00 AM AMBULATORY - MEDICINE [facility] Active, Pending, and Scheduled Orders This section includes a listing of several types of active, pending, and scheduled orders, including clinic medications orders, diagnostic test orders, procedure orders and consult orders; where the start date of the order is 45 days before the date of the Encounter or 45 days after the date of theEncounter. The data comes from all [facility]. Test Date/Time Test Type Test Details Facility Name Jul 29, 2024 01:03 PM Consult Order [facility] GENER[facility] Cons Loan Review Officer's Choice [facility] Lab Results: +/- 30 days of the encounter This section includes the Chemistry and Hematology Lab Results on record with [place] for the patient. Radiology Reports and Pathology Reports are provided separately, in subsequent sections. Lab Results This section contains the Chemistry/Hematology Results that were resulted 30 days before or 30 daysafter the date of the Encounter. Date/Time Source Result Type Result - Unit Interpretation Reference Range Comment Jul 29, 2024 11:38 AM [facility] T-SPOT TB PANEL Specimen Type: [...] For additional information, please refer to http://education .[employer]/faq/ODA378 (This link is being provided for informational/ educational purposes only.) Test Performed by [employer], [employer] [facility], [address] [place] [address] Patel Tamez M.D., Ph.D., Director of Laboratories , [facility] [id number] TEST PERFORMED AT: , Ordering Provider: FILOMENA SCOTT Report Released Date/Time: Jul 29, 2024 10:55 AM Reporting Lab: [facility] [address] [facility] [address] Performing Lab: [facility] [address] [address] B-[id number] (o) Negative Negative T-SPOT-PNLA 0 T-SPOT-PNLB 0 M-WKGI-GXHQDI L Passed V-LCWP-NBZPTJ L Passed Jul 29, 2024 11:38 AM [facility] MMRV (IGG) IMMUNE STATUS PANEL [...] Jul 29, 2024 10:55 AM Reporting Lab: [facility] [address] [facility] [address] Performing Lab: [facility] [address] [facility] [address] MEASLES (IGG) REACTIVE SEE COMMENT MUMPS (IGG) REACTIVE SEE COMMENT RUBELLA (IGG) REACTIVE SEE COMMENT VARICELLA (IGG) REACTIVE SEE COMMENT Jul 29, 2024 11:38 AM [facility] BASIC METABOLIC PANEL (non-fasting) Specimen Type: SERUM No comment entered. Ordering Provider: FILOMENA SCOTT Report Released Date/Time: Jul 29, 2024 10:39 AM Reporting Lab: [facility] [address] [facility] [address] Performing Lab: [address] [address] UREA NITROGEN 12 mg/dL 7-25 GLUCOSE 94 mg/dL 65-100 SODIUM 141 mmol/L 135-145 POTASSIUM 4.0 mmol/L 3.5-5.0 CHLORIDE 106 mmol/L 100-110 CO2 26 meq/L 20-30 CREATININE, Serum 0.82 mg/dL 0.50-1.40 eGFR(CKD-EPI 2020) >90 mL/min >60 Jul 29, 2024 11:38 AM [facility] LIPID PANEL FASTING Specimen Type: SERUM No comment entered. Ordering Provider: FILOMENA SCOTT Report Released Date/Time: Jul 29, 2024 10:39 AM Reporting Lab: [address] [address] Performing Lab: [address] [address] CHOLESTEROL 159 mg/dL TRIGLYCERIDE 66 mg/dL 0-150 LDL calculated 89 mg/dL 0-129 CHOL/HDL 2.8 HDL CHOLESTEROL 57 mg/dL 40-60 Jul 29, 2024 11:38 AM [facility] LIVER FUNCTION Specimen Type: SERUM No comment entered. Ordering Provider: FILOMENA SCOTT Report Released Date/Time: Jul 29, 2024 10:39 AM Reporting Lab: [facility] [address] [facility] [address] Performing Lab: [address] [address] PROTEIN,TOTAL 6.9 g/dL 6.0-8.3 ALBUMIN 4.5 g/dL 3.5-5.0 ALKALINE PHOSPHATASE 82 U/L 40-150 AST 13 U/L 5-34 ALT 9 U/L BILIRUBIN, TOTAL 1.4 mg/dL H 0.2-1.2 BILIRUBIN, DIRECT 0.5 mg/dL 0-0.5 Jul 29, 2024 11:38 AM [facility] CBC AND DIFF (AUTO) Specimen Type: BLOOD No comment entered. Ordering Provider: FILOMENA SCOTT Report Released Date/Time: Jul 29, 2024 10:39 AM Reporting Lab: [facility] [address] [facility] [address] Performing Lab: [facility] [address] [facility] [address] WBC 4.06 10*3/uL L 4.50-11.00 RBC 3.93 [...] 10*3/uL 0.00-0.00 Jul 29, 2024 11:38 AM [facility] HEMOGLOBIN A1C PANEL Specimen Type: [...] Jul 29, 2024 10:39 AM Reporting Lab: [facility] [place] [facility] [address] [facility] [address] Performing Lab: [place] [facility] [place] [address] [address] HEMOGLOBIN A1C 4.9 4.0-5.6 Jul 29, 2024 11:38 AM [facility] TSH Specimen Type: SERUM No comment entered. Ordering Provider: FILOMENA SCOTT Report Released Date/Time: Jul 29, 2024 10:39 AM Reporting Lab: [facility] [place] [address] [address] Performing Lab: [place] [facility] [place] [address] [address] TSH 0.80 u[IU]/mL 0.35-5.00 Jul 29, 2024 11:38 AM [facility] HEPATITIS C ANTIBODY (HCV)-ARC Specimen Type: SERUM Comment: Hep C Ab: No HCV antibody detected. If recent infection is suspected or other evidence suggests HCV infection, consider HCV nucleic acid testing Ordering Provider: FILOMENA SCOTT Report Released Date/Time: Jul 29, 2024 11:10 AM Reporting Lab: [facility] [place] [address] [address] Performing Lab: [facility] [place] [address] [address] HEPATITIS C ANTIBODY NON-REACTIVE NON-REACTI VE Vital Signs: All taken on the encounter date This section contains inpatient and outpatient Vital Signs collected on the date of the Encounter. Date/Time Temperature Pulse Blood Pressure Respiratory Rate SP02 Pain Height Weight Body Mass Index Source Jul 29, 2024 10:11 AM 97.9 77 108/68 14 98 66 149.8 24 [place] [facility] Social History: Smoking Status (Most current) and Tobacco Use (All prior to encounter date) This section includes the most current, and the historical, smoking and tobacco- related health factors from the [place] facility where the Encounter took place. Current Smoking Status This section includes the most current smoking, or tobacco-related health factor, from the [place] facility where the Encounter took place. Date/Time Current Smoking Status Comment Facil ity Jul 24, 2024 11:37 AM VA-TOBACCO NEVER USED [facility] Radiology Reports: +/- 30 days of [...] the Encounter. The data comes from all [place] treatment facilities. Date/Time Radiology Report Provider Source Jul 29, 2024 11:[address] MAXILLOFACIAL W/O CONT: MUKESH DURBIN [id number] -1990 F Exm Date: JUL 29, 2024@11:56 Req Phys: FILOMENA SCOTT Pat Loc: CWM/NO/PACT 5 (Req'g Loc) Img Loc: [facility]/CT Service: Unknown Screen: Patient [place] [address] (Case 92 COMPLETE) CT MAXILLOFACIAL W/O CONT (CT Detailed) CPT:73981 Reason for Study: right jaw pain and zygomatic arch pain Clinical History: Post rugby injury last month with head on collision on right side of skull and cheek pain with opening jaw right side Report Status: Verified Date Reported: JUL 31, 2024 Date Verified: JUL 31, 2024 Media Relations Director E-Sig: Report: CT MAXILLOFACIAL W/O CONT right [...] tissue swelling. READING PHYSICIAN: Alen Guzman MD -[id number] 07/31/2024 7:21 [facility] [phone] (For Medical Practitioner Use Only) Attention Patients / Veterans: If you have questions or concerns about these test results, please contact your ordering provider or primary care team. Primary Diagnostic Code: NO ALERT REQUIRED Primary Interpreting Staff: RADIOLOGY,OUTSIDE SERVICE, Staff Physician / RADIOLOGY,OUTSIDE SERVICE [facility] Jul 29, 2024 11:55 AM ANKLE 3 OR MORE VIEWS (RIGHT): MUKESH DURBIN [id number] -1990 F Exm Date: JUL 29, 2024@11:55 Req Phys: FILOMENA SCOTT Pat Loc: CWM/NO/PACT 5 (Req'g Loc) Img Loc: [facility]/BUILDING 1 Service: Unknown Screen: Patient answered [place] [address] (Case 91 COMPLETE) ANKLE 3 OR MORE VIEWS (RIGHT) (RAD Detailed) CPT:00472 Reason for Study: Right medial ankle pain Clinical History: 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, mild ecchymosis also with small firm pea size tender nodule on medial right ankle just above malleolus Report Status: Verified Date Reported: JUL 29, 2024 Date Verified: JUL 29, 2024 Media Relations Director E-Sig:/ES/JEFFERY GARCIA JR Report: Study: AP, lateral [...] Primary Interpreting Staff: JEFFERY GARCIA JR, Radiologist (Media Relations Director) /JEFFERY CASTILLO JR [facility] Jul 29, 2024 11:55 AM SHOULDER,COMPLETE(RIGHT): MUKESH DURBIN [id number] -1990 F Exm Date: JUL 29, 2024@11:55 Req Phys: FILOMENA SCOTT Pat Loc: CWM/NO/PACT 5 (Req'g Loc) Img Loc: [facility]/BUILDING 1 Service: Unknown Screen: Patient answered no [facility] [place] [address] (Case 90 COMPLETE) SHOULDER,COMPLETE(RIGHT) (RAD Detailed) CPT:77980 Reason for Study: Right shoulder pain Clinical History: Post rugby injury last month Report Status: Verified Date Reported: JUL 29, 2024 Date Verified: JUL 29, 2024 Media Relations Director E-Sig:/ES/JEFFERY GARCIA JR Report: Study: AP internally [...] Primary Interpreting Staff: JEFFERY GARCIA JR, Radiologist (Media Relations Director) /JEFFERY CASTILLO JR [facility] Encounter Notes: All associated encounter notes This section contains the clinical notes associated to the Encounter. Date/Time Encounter Note(s) Provider Source Jul 29, 2024 01:23 PM COMMERCIAL CLEANER NOTE: LOCAL TITLE: POST 911 CASE MANAGEMENT SCREENING STANDARD TITLE: COMMERCIAL CLEANER NOTE DATE OF NOTE: JUL 29, 2024@13:23 ENTRY DATE: JUL 29, 2024@13:24:08 AUTHOR: ALLY SALVADOR EXP COSIGNER: YANETHCHLOESHIRA REED URGENCY: STATUS: COMPLETED Post 07/23 Case Management Screen The was contacted by telephone. Spring demographic information has been verified as correct. Preferred Method(s) of Communication: Email Medical and/or Mental Health Crisis: The is NOT currently experiencing a medical and/or mental health crisis. Emergency Room Visits/Hospital Admissions: The Spring has NOT had three or more emergency room visits or hospital admissions in the past six months. Chronic Health Conditions: The Spring has NOT been diagnosed with any chronic health condition in the last 12 months. Concerns/Questions/Needs: The has NO barriers to care concerns, questions or needs at this time. The Spring HAS concerns, questions or needs regarding benefits. COMPENSATION/[place] STATE BENFITS The HAS concerns, questions or needs regarding managing care. WHOLE HEALTH EDUCATION The has NO social concerns, questions or needs at this time. Case Management Screen Outcome: The HAS identified needs as described above. The Veterans identified needs WERE resolved during this encounter. Time spent with patient: 31-45 minutes WHOLE HEALTH WHOLE HEALTH EDUCATION Whole Health Education was provided. Called as part of the TCM screening measure. A comprehensive chart review was conducted prior to this call. 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. Spring just started utilizing the [facility] and has no complaints at this time. Spring denies needing or wanting MH services during our conversation when offered. denied having a medical or mental health crisis during our conversation when asked. We discussed the three different components that make up the VA. We discussed [place] state benefits that she is eligible for and I explained the function and the dynamics of the [facility] team and also educated her on the whole health initiative and spoke about VA disability claims. I also sent her an email with my contact information on it and the welcome home letter with the teams information on it for any future questions or concerns. /werner/ ALLY SALVADOR Transitional Patient Advocate Signed: 07/29/2024 14:16 /werner/ HONORIO Madrigal LICENSED CLINICAL CONTINUOUS MINING OPERATOR Cosigned: 07/30/2024 09:08 ALLY SALVADOR [place] [facility]
== END 2024-10-22 07:19 | disposition home or self-care (01) ==
LOC: HO.MRI 07:18
PROVIDERS: PCP Nurse Practitioner Family; Visit Provider Nurse Practitioner Family
DX: M26.69 Other specified disorders of temporomandibular joint (principal)
CPT/HCPCS: 70336

== ENCOUNTER 2025-04-06 11:49 | Emergency (ER) | payer OTHER, SELFPAY ==
[2025-04-06 11:52] VITALS: BP 124/65; PULSE 70; RESP 19; TEMP 36.6; O2SAT 98; BMI 24.2
--- NOTE | 2025-04-06 11:53 | ED.GENADULT ---
HPI - General Adult General Chief complaint: Eye Problems Stated complaint: fb in r eye work related Time Seen by Provider: 04/06/25 13:06 Source: patient, RN notes reviewed and old records reviewed Mode of arrival: ambulatory Limitations: no limitations History of Present Illness ED Provider: Dayan HPI narrative: 35-year-old female presents for evaluation of chemical exposure to her right eye. She was at work using Zep wax stripper. She reports a small amount splashed into her right eye. She initially had some burning pain. She called poison control and was able to use a Mehdi lens to flush the eye for 20 minutes consecutively with saline. 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 She does not wear corrective lenses Related Data Allergies Allergy/AdvReac Type Severity Reaction Status Date / Time No Known Allergies Allergy Verified 04/06/25 11:55 Review of Systems Eyes: Eyes: Denies eye discharge, Denies eye pain and Denies requires corrective lenses PMFSH Social History Social History Advance Directives: No Advance Directives Information Provided: No Do you have a plan to hurt others: No Plan Physical Exam ED Vital Signs: Vital Signs - 24 hr 04/06/25 11:52 Temperature 98 F Pulse Rate 70 Respiratory Rate 19 Blood Pressure 124/65 Pulse Oximetry 98 BMI result Body Mass Index 24.2 Const General: healthy appearing, comfortable, no acute distress, alert and awake Nutritional Appearance: well nourished Orientation/consciousness: patient oriented x3 HENMT Head: Yes normocephalic and Yes atraumatic Throat: Yes posterior oropharynx normal Eyes Other: Visual acuity 20/20 on right, 20/15 on left and 20/15 bilaterally No increased fluorescein uptake in the right eye Visual Yee: normal visual yee by confrontation Alignment and Position: alignment normal Periorbital: periorbital findings normal Eyelids: Yes eyelids normal Conjunctivae: conjunctivae normal Sclerae: sclerae normal Corneas: corneas normal Pupils: Equal, round and reactive pupils present EOM: EOMs intact bilaterally Direct Ophthalmoscopy: normal light reflex, no photophobia, no papilledema and fundi normal bilaterally Resp Effort & Inspection: normal respiratory effort, able to speak in complete sentences and not labored Skin General skin exam: elasticity normal Neuro General: patient oriented x3 Cranial nerves: Yes Equal, round and reactive pupils present and Yes Bilaterally intact EOM present Cognition (Neuro): normal cognition Extrem Other: Moving all extremities well without any obvious deformities Course Course Course Narrative: RME, this is a rapid medical exam performed by Nicho Hanley please refer to primary provider for complete H&P- 35 year old female presents after getting a cleaning chemical in her eye about 90 minutes ago while at work. She was using Zep wax remover. She reports a small amount splashed into her right eye, she called poison control and was instructed to flush the area with a Mehdi lens which she did for about 20 minutes. She has some dryness to the right eye but no significant pain. Does not wear contacts or glasses Medical Decision Making Medical Decision Making MDM Narrative: 35-year-old female presents for evaluation of chemical exposure to her right eye. The chemical was a pH of 13, a base. She called [employer] control. 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 She flushed the area for 20-30 minutes. She has no significant pain, but has a dry feeling to the right eye. There was no significant conjunctival injection, no increased fluorescein uptake, no chemosis. No ulcerations. No papilledema, the patient's visual acuity is minimally worse on the right, affected eye, however still 20/20. PH was checked and the patient's pH of the eye is 7, within normal limits. It appears she today good job flushing the eye on her own. This was checked about 2 hours after initial exposure. Differential Diagnosis Differential Diagnoses: The differential diagnosis associated with the presentation includes Chemical irritation Chemical exposure Corneal abrasion Chemical burn Scleritis Conjunctivitis Discharge Plan Discharge Clinical Impression: Chemical exposure of eye Patient Disposition: Home, Self-Care Instructions: Eye Wash (Into the eye) (Advanced Eye Relief, Eye Clean, Eye Wash,... Additional Instructions: Your exam in the ER today was reassuring. There is no evidence of damage to your eye on initial exam. Your visual acuity is normal There was no evidence of chemical burn on the cornea The pH in your eye was normal Follow-up with your primary doctor, you may follow-up with Ophthalmology at the [facility] for any new or worsening symptoms Stand Alone Forms: Work/School Release Print Language: Icelandic
--- OUTSIDE RECORDS SUMMARY | 2025-04-06 13:16 | XMS_ITS | Clinical Summary ---
Author Organization [facility] Address [address] [place] [address] Care Team Providers Care Coffee Break Attendant Name Role Phone Unavailable Primary Care Provider Unavailabl e Social History Tobacco Use Types Packs/Day Years Used Date Smoking Tobacco: Never Assessed Comments Unknown Sex and Gender Information Value Date Recorded Sex Assigned at Not on file Legal Sex Female 5:59 PM EDT Gender Identity Not on file Sexual Orientation Not on file Plan of Treatment Health Maintenance Due Date Last Done Comments Hepatitis C Virus Screening 1990 HIV Screening 02/28/2005 DTaP/Tdap/Td Vaccines (1 - Tdap) 02/28/2011 Hepatitis B Vaccines (1 of 3 - 19+ 3-dose series) 02/28/2011 COVID-19 Vaccine (2023-2 5 season) 2024 HPV Vaccines Aged Out No longer eligi ble based on patient's age to complete this topic Pneumococcal Vaccine: Pediat jaime (0-5 Years) and At-Risk Patients (6 to 49 Years) Aged Out No longer eligible b ased on patient's age to complete this topic
[2025-04-06] MEDS: Fluorescein Sodium STRIP 1 STRIP EYE-RIGHT (13:46)
[2025-04-06] MEDS: Tetracaine HCl/PF 0.5% Oph Sol 4 ML DROPS 1 DROP EYE-RIGHT (13:46)
[2025-04-06 14:12] VITALS: BP 124/65; PULSE 70; RESP 19; TEMP 36.6; O2SAT 98
== END 2025-04-06 14:13 | disposition home or self-care (01) ==
PROVIDERS: Emergency Provider Emergency Medicine; PCP Nurse Practitioner Family
DX: H57.11 Ocular pain, right eye (principal); Z77.098 Contact with and (suspected) exposure to other hazardous, chiefly nonmedicinal, chemicals
CPT/HCPCS: 99282; 99283